=== PATIENT | female | born 1945 | race Caucasian/White ===

== ENCOUNTER 2016-03-12 15:51 | Emergency (ER) | payer OTHER ==
[~2016-03-12] VITALS: Ht 165.1 cm; Wt 78.5 kg
[~2016-03-12 15:51] MED LIST: ASPEC81 PO; LEVO200T20 PO; ZCRT/40 PO
[2016-03-12 16:02] VITALS: TEMP 37.2; Ht 165.1 cm; Wt 78.5 kg
--- NOTE | 2016-03-12 16:42 | EMERGENCY ROOM VISIT NOTE ---
History Report prepared by Joaquina: Morris Julien Under the Supervision of: Dr. Todd Morataya M.D. First contact with patient: 16:18 Chief Complaint: POISONING Stated Complaint: TOOK A SWALLOW OF PEROXIDE History of Present Illness The patient is a 70 year old female who presents to the Emergency Room with complaints of sudden ingestion of concentrated hydrogen peroxide beginning just prior to arrival. She associates burning in the mouth and throat, burning and pressure in the chest, vomiting, and a headache with today's symptoms. The patient notes she ran three miles and walked two miles at the gym today, and when she got home she went to drink diluted hydrogen peroxide. She states she read information on the internet of potential health benefits. The patient notes she ingested approximately 30 ccs of 35 Food Grade Hydrogen Peroxide that she believed was diluted. She states she attempted to spit out the majority of what she swallowed and proceeded to drink water. The patient notes the water caused her to vomit several times, but her vomit did not contain blood. She denies trying to hurt herself. Source of History: patient Onset: just prior to arrival Position: other (global) Quality: other (ingestion of concentrated hydrogen peroxide) Timing: other (sudden) Associated Symptoms: + chest pain (burning and pressure), + headache, + vomiting Note: Associated symptoms: burning in the mouth and throat Review of Systems See HPI for pertinent positives & negatives. A total of 10 systems reviewed and were otherwise negative. Past Medical & Surgical Surgical Problems: (1) S/P appendectomy (2) S/P hysterectomy Family History Cancer FH: heart disease FHx: gallbladder disease FHx: lung disease Hypertension Social History Smoking Status: Never Smoker Marital Status: Housing Status: lives with significant other Occupation Status: employed Current/Historical Medications Scheduled Aspirin (Aspirin Ec), 81 MG PO DAILY Levothyroxine Sodium (Levothyroxine Sodium), 200 MCG PO DAILY Simvastatin (Zocor), 40 MG PO DAILY Allergies Coded Allergies: POLLEN (Verified Allergy, Unknown, 11/05/13) Physical Exam Vital Signs Date Time Temp Pulse Resp B/P Pulse Ox O2 Delivery O2 Flow Rate FiO2 03/12/16 17:31 98 18 133/93 95 03/12/16 16:02 37.2 109 18 160/87 96 Room Air Physical Exam GENERAL: Patient is in no acute distress. HEENT: No erythema, ulcer, or burn to the mucosa of the mouth. No acute trauma, normocephalic atraumatic, mucous membranes moist, no nasal congestion, no scleral icterus. NECK: No stridor, no adenopathy, no meningismus, trachea is midline. LUNGS: Clear to auscultation bilaterally, no wheeze, no rhonchi, breath sounds equal. HEART: Without murmurs gallops or rubs, regular rate and rhythm. ABDOMEN: Soft, nontender, bowel sounds positive, no hernias, no peritonitis. EXTREMITIES: No cyanosis or edema, full range of motion of all the joints without pain or difficulty, no signs for acute trauma. NEUROLOGIC: Oriented x 3, no acute motor or sensory deficits, no focal weakness. SKIN: No rash, no jaundice, no diaphoresis. Medical Decision & Procedures ER Provider Diagnostic Interpretation: X-ray results as stated below per interpretation by me and the radiologist: CHEST ONE VIEW PORTABLE CLINICAL HISTORY: Possible esophageal rupture. COMPARISON STUDY: Chest radiograph November 04, 2005. FINDINGS: Lung volumes are normal. There is no pneumothorax or pleural effusion. Linear left basilar opacity is suggestive of atelectasis. Cardiac size is normal. Mediastinal contours are normal. No pneumomediastinum is identified by radiography. IMPRESSION: 1. No pneumomediastinum or pleural effusion identified by radiography. The esophagus is suboptimally assessed by radiography. 2. Linear left basilar opacity suggestive of atelectasis. Electronically signed by: Jeff De Souza M.D. 03/12/2016 5:00 PM ECG Indication: toxicologic Rate (beats per minute): 87 Rhythm: normal sinus (with some baseline artifact) Findings: no acute ischemic change, no ectopy, other (Poor R wave progression) ED Course 1617: The patient was evaluated in room B11B. A complete history and physical exam was performed. 1629: I spoke to the Poison Control Diesel Mechanic Helper in [place] about the patient 's case, and he suggested doing an endoscopy and observing the patient overnight. 1634: Reevaluated the patient at this time, and she is refusing an endoscopy and staying for observation. She notes she will think about the options further for a final decision. 1718: Reevaluated the patient, and she refuses anything else to be done. The patient states she feels better and wants to go home. She agrees to come back if she does not feel well as time goes on. Discussed results and discharge instructions: She verbalized understanding and agreement. The patient is ready for discharge. Medical Decision The differential diagnoses include but are not limited to: esophageal burn, stomach ulcer or burn, oral mucosa burn, esophageal rupture. The patient presents shortly after ingesting a small amount of concentrated hydrogen peroxide. She complains of some chest burning. On exam, the oral mucosa was unremarkable. Chest film showed no evidence for esophageal rupture, no mediastinal air. EKG showed a normal sinus rhythm, no ischemia. I talked with the technical solutions consultant at the poison center in [place]. He recommended an endoscopy and an admission overnight for observation. 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 She has agreed to come back if worsening. She understands the possibilities of a bad outcome if she were to go home. I discussed my concerns for esophageal burn or even esophageal rupture, I talked about the possibilities of a gastritis or gastric ulcer. As the patient does not want to go forward with the proposed treatment plan, she is being discharged, again, she has agreed to return if worsening. Consults Time Called: 1622 Consulting Physician: Poison Control Dies[employer] Mechanic Helper in [place] Returned Call: 1628 I spoke to the Poison Control Diesel Mechanic Helper in [place] about the patient's case, and he suggested doing an endoscopy and observing the patient overnight. Impression Primary Impression: Accidental drug ingestion Scribe Attestation The scribe's documentation has been prepared under my direction and personally reviewed by me in its entirety. I confirm that the note above accurately reflects all work, treatment, procedures, and medical decision making performed by me. Departure Information Dispostion Home / Self-Care Referrals Lex Pepper MD (PCP) Forms HOME CARE DOCUMENTATION FORM, IMPORTANT VISIT INFORMATION Patient Instructions [facility] Additional Instructions bland diet---lots of liqiuds return for worsening symptoms or if you change you mind about staying in the hospital or about your endoscopy follow with your [facility] md this week
--- NOTE | 2016-03-12 17:02 | DIAGNOSTIC IMAGING REPORT ---
CHEST ONE VIEW PORTABLE CLINICAL HISTORY: Possible esophageal rupture. COMPARISON STUDY: Chest radiograph November 04, 2005. FINDINGS: Lung volumes are normal. There is no pneumothorax or pleural effusion. Linear left basilar opacity is suggestive of atelectasis. Cardiac size is normal. Mediastinal contours are normal. No pneumomediastinum is identified by radiography. IMPRESSION: 1. No pneumomediastinum or pleural effusion identified by radiography. The esophagus is suboptimally assessed by radiography. 2. Linear left basilar opacity suggestive of atelectasis. Electronically signed by: Jeff De Souza M.D. 03/12/2016 5:00 PM Dictated Date/Time: 03/12/2016 4:58 PM
[2016-03-12] MEDS ORDERED: ASPI81TA28 PO (17:26)
[2016-03-12] MEDS ORDERED: LEVO200T6 PO (17:26)
[2016-03-12 17:31] VITALS: BP 133/93; PULSE 98; O2SAT 95
[2016-03-14] MEDS ORDERED: ULT50X PO (17:26)
[2016-03-14] MEDS ORDERED: PRT40 PO (17:26)
[2016-03-14] MEDS ORDERED: ONDA4TAB10 SL (17:26)
== END 2016-03-12 17:33 | disposition left against medical advice (07) ==
LOC: C.EDB 15:53
DX: T49.0X1A Poisoning by local antifungal, anti-infective and anti-inflammatory drugs, accidental (unintentional), initial encounter (principal); X58.XXXA Exposure to other specified factors, initial encounter; Y92.019 Unspecified place in single-family (private) house as the place of occurrence of the external cause; Z79.82 Long term (current) use of aspirin; Z79.899 Other long term (current) drug therapy

== ENCOUNTER 2016-03-12 21:51 | Inpatient (IN) | payer OTHER ==
[~2016-03-12] VITALS: Ht 162.6 cm; Wt 77.6 kg
[~2016-03-12 21:51] MED LIST changes: +ASPI81TA28 PO; +LEVO200T6 PO
[2016-03-12] MEDS ORDERED: ONDANSETRON INJ 2 MG/ML 2 ML VIAL IV STA (22:22)
[2016-03-12 22:33] LABS: BASO % 0.2 %; BASO ABS # 0.03 K/uL (0-0.2); COMPLETE YES; EOS % 0.2 %; HEMATOCRIT 43.9 % (37-47); IG% 0.3 %; LYMPH % 9.2 %; LYMPH ABS # 1.23 K/uL (1.2-3.4); MEAN CELL VOLUME 85.7 fL (80-100); MEAN CORPUSCULAR HEMOGLOBIN 29.9 pg (25-34); MEAN CORPUSCULAR HGB CONC 34.9 g/dl (32-36); MEAN PLATELET VOLUME 12.2 fL (7.4-10.4); MONO % 3.3 %; NEUT % 86.8 %; PLATELET COUNT 239 K/uL (130-400); RED BLOOD COUNT 5.12 M/uL (4.2-5.4)
[2016-03-12] MEDS ORDERED: MoRPHine SULFATE 4 MG/ML 1 ML CARP\\VIAL IV STA (22:42)
[2016-03-12] MEDS ORDERED: PANTOprazole INJ 80 MG in DEXTROSE 5% 100ML 100 ML IV STA (22:42)
[2016-03-12 22:51] LABS: BUN/CREATININE RATIO 27.9 (10-20); CALCIUM 9.5 mg/dl (8.5-10.1); CREATININE 0.81 mg/dl (0.60-1.20); POTASSIUM 4.1 mmol/L (3.5-5.1)
[2016-03-12 22:54] LABS: ALB/GLOB RATIO 1.3 (0.9-2)
--- NOTE | 2016-03-12 23:04 | DIAGNOSTIC IMAGING REPORT ---
TWO VIEW CHEST CLINICAL HISTORY: Hemoptysis. Hydrogen peroxide ingestion. FINDINGS: PA and lateral chest radiographs are compared to study dated 03/12/2016. The cardiomediastinal silhouette is unremarkable. There is mild atherosclerotic calcification of the thoracic aorta. Platelike atelectasis is in the left lung base. The lungs and pleural spaces are otherwise clear noting chronic interstitial thickening. There is no pneumothorax or evidence of pneumomediastinum. The skeletal structures are osteopenic. The bony thorax appears intact. IMPRESSION: No acute cardiopulmonary abnormality. Electronically signed by: Todd Hernandez M.D. 03/12/2016 11:01 PM Dictated Date/Time: 03/12/2016 11:00 PM
[2016-03-12] MEDS ORDERED: HYDROmorphone INJ 1 MG/ML SYR IV STA (23:13)
[2016-03-12] MEDS ORDERED: HYDROmorphone INJ 0.5 MG/0.5 ML SYR ONE (23:15)
[2016-03-13] VITALS (14 sets, daily range): BP systolic 101–130; BP diastolic 62–77; PULSE 65–80; TEMP 36.5–36.9; O2SAT 90–97; Ht 162.6 cm; Wt 77.6 kg
--- NOTE | 2016-03-13 00:37 | History and Physical ---
History & Physical Date & Time of Service: Mar 13, 2016 at 00:33 Chief Complaint: Nausea:Was Seen Earlier Today Primary Care Physician: Lex Pepper MD History of Present Illness Source: patient, spouse Mrs Audelia Galvez is a 70 year old female who presents to the ED today after accidental hydrogen peroxide ingestion at 3pm on 03/12/16 (yesterday). She was at the gym and on the treadmill, then when she got home decided to try drinking hydrogen peroxide for health benefits. She did not know that the hydrogen peroxide should be diluted and ended up having it as its concentrated form. She came to the ED earlier in the day, and Poison control was contacted and recommended an EGD and observation. She felt better at the time and so decided to go home, but later in the evening returned after she developed worsening vomiting and noticed her vomit was blood tinged. Currently, she reports severe pain in the epigastrium. She had two doses of morphine that did not touch the pain. She reports that this was not an intentional overdose. She previously was a nurse. Past Medical/Surgical History PMHx: Hypothyroidism Surgical Problems: (1) S/P appendectomy Status: Resolved (2) S/P hysterectomy Status: Resolved Family History Cancer FH: heart disease FHx: gallbladder disease FHx: lung disease Hypertension Social History Smoking Status: Never Smoker Marital Status: Occupational Status: employed Immunizations History of Influenza Vaccine: N/A History of Tetanus Vaccine?: Unknown History of Pneumococcal: Unknown History of Hepatitis B Vaccine: Yes Hepatitis Immunization Date: Mar 19, 2004 Multi-Drug Resistant Organisms History of MDRO: No Allergies Coded Allergies: POLLEN (Verified Allergy, Unknown, 11/05/13) Home Medications Scheduled Aspirin (Aspirin Ec), 81 MG PO DAILY Levothyroxine Sodium (Levothyroxine Sodium), 200 MCG PO DAILY Simvastatin (Zocor), 40 MG PO DAILY Review of Systems See HPI for pertinent positives & negatives. A total of 10 systems reviewed and were otherwise negative. Physical Exam Vital Signs Date Time Temp Pulse Resp B/P Pulse Ox O2 Delivery O2 Flow Rate FiO2 03/13/16 00:01 90 20 145/76 94 Room Air 03/12/16 22:15 80 03/12/16 21:53 36.5 89 20 169/79 96 Room Air General Appearance: WD/WN, + mild distress Head: normocephalic, atraumatic Eyes: normal inspection ENT: hearing grossly normal Neck: supple, no JVD Respiratory/Chest: lungs clear, normal breath sounds, no respiratory distress Cardiovascular: regular rate, rhythm, no murmur, normal peripheral pulses Abdomen/GI: soft, + tenderness (epigastrium) Back: no CVA tenderness Extremities/Musculoskelatal: no calf tenderness, no pedal edema Neurologic/Psych: alert, normal mood/affect, oriented x 3 Skin: no rash Diagnostics Laboratory Results Results Past 24 Hours Test 03/12/16 22:18 Range/Units White Blood Count 13.40 4.8-10.8 K/uL Red Blood Count 5.12 4.2-5.4 M/uL Hemoglobin 15.3 12.0-16.0 g/dL Hematocrit 43.9 37-47 % Mean Corpuscular Volume 85.7 80-100 fL Mean Corpuscular Hemoglobin 29.9 25-34 pg Mean Corpuscular Hemoglobin Concent 34.9 32-36 g/dl Platelet Count 239 130-400 K/uL Mean Platelet Volume 12.2 7.4-10.4 fL Neutrophils (%) (Auto) 86.8 % Lymphocytes (%) (Auto) 9.2 % Monocytes (%) (Auto) 3.3 % Eosinophils (%) (Auto) 0.2 % Basophils (%) (Auto) 0.2 % Neutrophils # (Auto) 11.63 1.4-6.5 K/uL Lymphocytes # (Auto) 1.23 1.2-3.4 K/uL Monocytes # (Auto) 0.44 0.11-0.59 K/uL Eosinophils # (Auto) 0.03 0-0.5 K/uL Basophils # (Auto) 0.03 0-0.2 K/uL RDW Standard Deviation 38.9 36.4-46.3 fL RDW Coefficient of Variation 12.4 11.5-14.5 % Immature Granulocyte % (Auto) 0.3 % Immature Granulocyte # (Auto) 0.04 0.00-0.02 K/uL Sodium Level 141 136-145 mmol/L Potassium Level 4.1 3.5-5.1 mmol/L Chloride Level 105 98-107 mmol/L Carbon Dioxide Level 20 21-32 mmol/L Anion Gap 16.0 3-11 mmol/L Blood Urea Nitrogen 23 7-18 mg/dl Creatinine 0.81 0.60-1.20 mg/dl Est Creatinine Clear Calc Drug Dose 66.8 ml/min Estimated GFR () 85.3 Estimated GFR (Non- 73.6 BUN/Creatinine Ratio 27.9 10-20 Random Glucose 189 70-99 mg/dl Calcium Level 9.5 8.5-10.1 mg/dl Total Bilirubin 0.4 0.2-1 mg/dl Aspartate Amino Transf (AST/SGOT) 19 15-37 U/L Alanine Aminotransferase (ALT/SGPT) 31 12-78 U/L Alkaline Phosphatase 87 45-117 U/L Total Protein 7.7 6.4-8.2 gm/dl Albumin 4.3 3.4-5.0 gm/dl Globulin 3.4 2.5-4.0 gm/dl Albumin/Globulin Ratio 1.3 0.9-2 Diagnostic Radiology CXR: IMPRESSION: No acute cardiopulmonary abnormality. CT CHEST without contrast: No extraluminal contrast, pneumomediastinum, or pneumothorax. Oral contrast is seen in the esophagus; no superimposed mass lesion or stricture. Mild dependent/atelectatic opacities present within the lung bases. Incidental lower cervical spondylosis. CT ABDOMEN & PELVIS: Small hiatal hernia with accentuated proximal gastric wall thickness. No extraluminal contrast, free air, or free fluid. Nonobstructive bowel gas pattern. Colonic diverticulosis. Uncomplicated umbilical hernia. Spondylosis L4-L5. Radiologist: Russell Maddox MD Impression Assessment and Plan 70 yo F with accidental hydrogen peroxide ingestion, causing vomiting and hematemesis (likely has a small Raquel-Petty tear) Plan Hydrogen peroxide ingestion - Observe on telemetry - NPO with IV fluids - Consult GI for potential EGD - Protonix drip - Daily Abdominal/Chest XRay to evaluate for esophageal perforation Raquel-Petty Tear - Dilaudid for pain - Daily CBC Pt states she is a DNR Level of Care Telemetry Resuscitation Status DO NOT RESUSCITATE VTE Prophylaxis VTE Risk Assessment Done? Y/N: Yes Risk Level: High Given or contraindicated: SCD's Additional Copies To Lex Pepper MD Resident Tracking Resident Involvement: Resident Care Provided Care Provided: Adult [facility] Medicine Assessment and Plan Attending Addendum: I have seen and examined this patient, have directed their medical care, have supervised the chief medical technologist, and agree with the H&P as noted above. History of Present Illness: The patient is a 70-year-old female who presented to the emergency department earlier in the day after accidental ingestion of hydrogen peroxide at 3 PM, was assessed, and at that time felt well enough to go home and follow-up with her physician as an outpatient. However, later on in the evening, the patient developed esophageal pain and vomited up blood, and thus presented back to the emergency department for assessment and was referred for evaluation for admission. She did undergo imaging studies including x-rays and CT of the chest abdomen and pelvis which were negative for free air indicating that there was no perforation. Her primary symptoms at this point are that of a sore throat and nausea. Review of Systems: The patient denies palpitations, shortness of breath, cough, lower extremity swelling, vision change, hearing change, fevers, chills, sweats, weight change , fatigue, pelvic pain, blood in urine or stool, dysuria, urinary frequency or urgency, lightheadedness, dizziness, headache, memory loss, rash, abnormal bruising or bleeding, imbalance, focal or generalized weakness, numbness or tingling in arms or legs, arthralgias or myalgias, back or neck pain, night sweats. The review of systems is otherwise negative other than for that already noted above, and at least 10 systems have been reviewed. Physical Examination: The patient is awake, well-developed and adequately nourished, alert and oriented 3, normocephalic and atraumatic, lying in bed and in no acute distress. HEENT--PERRL, EOMI, mucous membranes and oropharynx dry. Neck--supple, no JVD or bruits, thyroid normal, trachea midline, no adenopathy. Heart--normal S1 and S2, no extra beats, no murmurs, rubs or gallops. Lungs--clear bilaterally with good air movement, no respiratory distress, no accessory muscle use. Abdomen--normal bowel sounds and soft, nontender and nondistended, no hernias or masses, no organomegaly. Extremities--no cyanosis, clubbing or edema. There are good distal pulses b/l. Dermatologic--normal skin turgor, normal color, warm and dry, no abnormal lymph nodes, no rash. Neurologic--cranial nerves II through XII grossly intact, motor and sensory examination normal. Rheumatologic--normal range of motion, nontender, muscles and joints. Psychiatric--normal affect. Imaging Studies: CT of the chest/abdomen/pelvis--small hiatal hernia, no signs of perforation. Assessment and Plan: Accidental ingestion of hydrogen peroxide--the patient will be admitted to the telemetry unit for frequent vital signs and close monitoring. She'll be kept nothing by mouth. She'll be placed on Protonix bolus and then drip. Start normal saline with potassium chloride 20 mEq at 125 ML's per hour. Dilaudid 0.5 -1 mg IV every 2 hours when necessary pain. Gastroenterology has been notified from the emergency department personnel, and felt that it is best to wait until the morning to consider an EGD at that time. We will perform serial chest x-ray and KUB x-ray to monitor for perforation. CBCD, BMP and magnesium in the a.m. Hypothyroidism--change levothyroxine sodium at 200 g by mouth daily to 100 g IV daily. Hypercholesterolemia--hold simvastatin 40 mg by mouth daily and aspirin 81 mg by mouth daily.
[2016-03-13] MEDS: HYDROmorphone INJ 0.5 MG/0.5 ML SYR IV PRN ×3 (00:45→18:37)
[2016-03-13] MEDS: PANTOprazole INJ 40 MG in DEXTROSE 5% 100ML IV SCH ×5 (00:55→21:41)
[2016-03-13] MEDS: SODIUM CHLOR 0.45% + 20MEQ KCL 1,000 ML IV SCH ×4 (02:12→21:30)
--- NOTE | 2016-03-13 07:11 | Gastroenterology Progress Note ---
Progress Note Date of Service: Mar 13, 2016 Subjective Pt evaluation today including: conversation w/ patient, physical exam, chart review, lab review, review of studies, review of inpatient medication list Medications Current Inpatient Medications Medications (Trade) Dose Ordered Sig/Irineo Route Start Time Stop Time Status Last Admin Dose Admin Ondansetron HCl (Zofran Inj) 4 mg Q6H PRN IV 03/13/16 00:30 04/12/16 00:29 Hydromorphone HCl 0.5 mg 0.5 mg Q4H PRN IV 03/13/16 00:30 03/27/16 00:29 03/13/16 00:45 0.5 MG Potassium Chloride/Sodium Chloride 1,000 ml @ 150 mls/hr Q6H40M IV 03/13/16 01:30 04/12/16 01:29 03/13/16 02:12 150 MLS/HR Pantoprazole Sodium 40 mg/ Dextrose 100 ml @ 20 mls/hr Q5H IV 03/13/16 00:45 04/12/16 00:44 03/13/16 06:38 20 MLS/HR Levothyroxine Sodium/Syringe (Synthroid Inj/ Syringe) 5 ml @ 2 mls/min DAILY@09 IV 03/13/16 09:00 04/12/16 08:59 Objective Vital Signs Date Time Temp Pulse Resp B/P Pulse Ox O2 Delivery O2 Flow Rate FiO2 03/13/16 04:00 36.6 80 18 130/77 90 Room Air 03/13/16 04:00 90 Room Air 03/13/16 02:33 90 Room Air 03/13/16 02:00 90 Room Air 03/13/16 01:43 36.6 80 18 130/77 90 Room Air 03/13/16 00:47 90 20 142/82 97 Room Air 03/13/16 00:01 90 20 145/76 94 Room Air 03/12/16 22:15 80 03/12/16 21:53 36.5 89 20 169/79 96 Room Air Laboratory Results Last 24 Hours Test 03/12/16 22:18 White Blood Count 13.40 K/uL Red Blood Count 5.12 M/uL Hemoglobin 15.3 g/dL Hematocrit 43.9 % Mean Corpuscular Volume 85.7 fL Mean Corpuscular Hemoglobin 29.9 pg Mean Corpuscular Hemoglobin Concent 34.9 g/dl Platelet Count 239 K/uL Mean Platelet Volume 12.2 fL Neutrophils (%) (Auto) 86.8 % Lymphocytes (%) (Auto) 9.2 % Monocytes (%) (Auto) 3.3 % Eosinophils (%) (Auto) 0.2 % Basophils (%) (Auto) 0.2 % Neutrophils # (Auto) 11.63 K/uL Lymphocytes # (Auto) 1.23 K/uL Monocytes # (Auto) 0.44 K/uL Eosinophils # (Auto) 0.03 K/uL Basophils # (Auto) 0.03 K/uL RDW Standard Deviation 38.9 fL RDW Coefficient of Variation 12.4 % Immature Granulocyte % (Auto) 0.3 % Immature Granulocyte # (Auto) 0.04 K/uL Sodium Level 141 mmol/L Potassium Level 4.1 mmol/L Chloride Level 105 mmol/L Carbon Dioxide Level 20 mmol/L Anion Gap 16.0 mmol/L Blood Urea Nitrogen 23 mg/dl Creatinine 0.81 mg/dl Est Creatinine Clear Calc Drug Dose 66.8 ml/min Estimated GFR () 85.3 Estimated GFR (Non- 73.6 BUN/Creatinine Ratio 27.9 Random Glucose 189 mg/dl Calcium Level 9.5 mg/dl Total Bilirubin 0.4 mg/dl Aspartate Amino Transf (AST/SGOT) 19 U/L Alanine Aminotransferase (ALT/SGPT) 31 U/L Alkaline Phosphatase 87 U/L Total Protein 7.7 gm/dl Albumin 4.3 gm/dl Globulin 3.4 gm/dl Albumin/Globulin Ratio 1.3 Assessment and Plan GI consult to be dictated Alkali ingestion epigastric pain hematemesis Improved. Continue IV protonix, Trial clear liquid diet. Offered by patient declined EGD to assess for severity of damage to stage disease for prognosis.
--- NOTE | 2016-03-13 07:41 | DIAGNOSTIC IMAGING REPORT ---
CT ABD/PELVIS ORAL CONT ONLY CLINICAL HISTORY: Ingested hydrogen peroxide. Evaluate for perforation. TECHNIQUE: Axial images of the abdomen and pelvis were obtained without IV contrast. Oral contrast was administered immediately prior to scan. COMPARISON STUDY: None. FINDINGS: The chest will be reported separately. No pneumoperitoneum or portal venous gas is present. No contrast extravasation is identified although contrast has only reached the proximal stomach. There is minimal perigastric infiltration along the gastrohepatic ligament. Mild gastric wall thickening is nonspecific and accentuated by underdistention. Unenhanced images of liver, spleen, adrenal glands, kidneys and pancreas are normal. There is no evidence for a bowel obstruction. No bowel wall thickening is identified although evaluation is compromised due to the lack of IV contrast. There is no lymphadenopathy. There are no suspicious skeletal abnormalities. There is a fat-containing umbilical hernia. IMPRESSION: No pneumoperitoneum or portal venous gas. Mild perigastric infiltration along the gastrohepatic ligament which may reflect inflammation related to gastric injury. Mild wall thickening of the distal body of the stomach could reflect gastritis related to toxic congestion or be due to underdistention. Discussed with Dr. Sanabria at time of dictation. Electronically signed by: Jeff De Souza M.D. 03/13/2016 7:40 AM Dictated Date/Time: 03/13/2016 6:20 AM
--- NOTE | 2016-03-13 07:44 | DIAGNOSTIC IMAGING REPORT ---
CHEST CT WITHOUT CONTRAST CT DOSE: 789.92 mGy.cm HISTORY: Drank hydrogen peroxide. Nausea. Assess for esophageal perforation. TECHNIQUE: Multiaxial CT images of the chest were performed without contrast. COMPARISON: None. FINDINGS: There is oral contrast within the esophagus. No extraluminal contrast to suggest a perforation. There is no evidence for pneumomediastinum. Normal caliber thoracic aorta. No pleural or pericardial effusions. The heart is normal in size. No mediastinal or hilar lymphadenopathy. No fractures within the visualized osseous structures. The central airways are patent. Motion artifact within the lung bases results in suboptimal evaluation. No focal lung consolidations to suggest pneumonia. IMPRESSION: No evidence for esophageal perforation. Please refer to the same day abdomen and pelvis CT for further evaluation of the abdominal structures. Electronically signed by: Vega Vo M.D. 03/13/2016 7:43 AM Dictated Date/Time: 03/13/2016 7:37 AM
[2016-03-13 07:51] LABS: BASO % 0.2 %; BASO ABS # 0.02 K/uL (0-0.2); EOS % 1.4 %; IG% 0.2 %; LYMPH % 16.3 %; LYMPH ABS # 1.69 K/uL (1.2-3.4); MEAN CELL VOLUME 86.4 fL (80-100); MEAN CORPUSCULAR HEMOGLOBIN 29.6 pg (25-34); MEAN PLATELET VOLUME 11.7 fL (7.4-10.4); MONO % 8.2 %; NEUT % 73.7 %; PLATELET COUNT 201 K/uL (130-400); RED BLOOD COUNT 4.86 M/uL (4.2-5.4); WHITE BLOOD COUNT 10.34 K/uL (4.8-10.8)
[2016-03-13 08:00] LABS: COMPLETE YES; MEAN CORPUSCULAR HGB CONC 34.3 g/dl (32-36)
[2016-03-13 08:17] LABS: ALB/GLOB RATIO 1.2 (0.9-2); BUN/CREATININE RATIO 26.4 (10-20); CALCIUM 9.2 mg/dl (8.5-10.1); CREATININE 0.67 mg/dl (0.60-1.20); POTASSIUM 4.6 mmol/L (3.5-5.1)
--- NOTE | 2016-03-13 09:23 | DIAGNOSTIC IMAGING REPORT ---
PA CHEST WITH ABDOMINAL SERIES CLINICAL HISTORY: Nausea. Vomiting. Generalized abdominal pain. Hydrogen peroxide ingestion. FINDINGS: A PA chest radiograph is compared to study dated 03/12/2016. The cardiomediastinal silhouette is unremarkable. The lungs and pleural spaces are clear. No pneumothorax is seen. The skeletal structures are osteopenic. The bony thorax is grossly intact. Supine and erect abdominal radiographs are correlated with abdominal CT dated 03/12/2016. There is a nonobstructed abdominal bowel gas pattern. No intraperitoneal free air is seen. Enteric contrast is present in the right colon. The bladder appears distended. Numerous calcified phleboliths are seen in the pelvis. The lumbosacral spine and bony pelvis appear intact. IMPRESSION: 1. No active disease in the chest. 2. Nonobstructed abdominal bowel gas pattern. Electronically signed by: Todd Hernandez M.D. 03/13/2016 9:21 AM Dictated Date/Time: 03/13/2016 9:18 AM
[2016-03-13] MEDS: ONDANSETRON INJ 2 MG/ML 2 ML VIAL IV PRN ×2 (09:26→18:37)
[2016-03-13] MEDS: LEVOTHYROXINE SODIUM INJ 100 MCG in SYRINGE 0 ML IV SCH (09:26)
--- NOTE | 2016-03-13 11:40 | EMERGENCY ROOM VISIT NOTE ---
History Report prepared by Joaquina: Mary Ellen Whatley Under the Supervision of: Dr. Niko Ferro M.D. First contact with patient: 22:24 Chief Complaint: NAUSEA Stated Complaint: NAUSEA:WAS SEEN EARLIER TODAY Nursing Triage Summary: patient has c/o severe abdominal pain radiating from stomach into her back along with feelings of abdominal distention. patient was seen here earlier after ingesting hydrogen peroxide and signed out AMA but was told to return if any symptoms worsened. patient also c/o nausea and vomiting blood. History of Present Illness The patient is a 70 year old female who presents to the Emergency Room with complaints of worsened lower chest and diffuse abdominal pain over the past 4.5 hours. Her current discomfort is a 7/10. The patient was initially seen around 4PM today in the ED after swallowing a large mouthful of food grade hydrogen peroxide (35% concentration). Per , he keeps it in the house for a 30 day cleansing treatment that he has instructions for to provide health benefits. The regimen says to use only a few drops in an 8 ounce glass of water. The patient thought it was already diluted when she swallowed it and did not have any intention of hurting herself. Afterwards, she had burning sensation in her mouth, throat, and chest and vomiting. While in the ED, Poison Control [facility] recommended that the patient have an endoscopy and be observed overnight in the hospital. The patient refused the recommendations because she was feeling better and was discharged home. 4.5 hours ago the patient started having much worse pain, and 4 hours ago, began to feel nauseated and vomit. She has had multiple episodes of hematemesis since then. Her vomit contains both dark and bright red blood. Denies loss of vision, unilateral numbness or weakness, or other complaints. 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 A total of 10 systems reviewed and were otherwise negative. Past Medical & Surgical Medical Problems: (1) Accidental ingestion of substance Surgical Problems: (1) S/P appendectomy (2) S/P hysterectomy Family History Cancer FH: heart disease FHx: gallbladder disease FHx: lung disease Hypertension Social History Smoking Status: Never Smoker Marital Status: Housing Status: lives with significant other Occupation Status: employed Current/Historical Medications Scheduled Aspirin (Aspirin Ec), 81 MG PO DAILY Levothyroxine Sodium (Levothyroxine Sodium), 200 MCG PO DAILY Simvastatin (Zocor), 40 MG PO DAILY Allergies Coded Allergies: POLLEN (Verified Allergy, Unknown, 11/05/13) Physical Exam Vital Signs Date Time Temp Pulse Resp B/P Pulse Ox O2 Delivery O2 Flow Rate FiO2 03/13/16 00:01 90 20 145/76 94 Room Air 03/12/16 22:15 80 03/12/16 21:53 36.5 89 20 169/79 96 Room Air Physical Exam Constitutional: Vital signs reviewed. Eyes: Pupils are equal round reactive to light. Conjunctiva are noninjected. ENT: Pharynx is clear without erythema or exudate. Mucous membranes are moist. Neck supple without meningeal signs. Respiratory: Clear to auscultation bilaterally. Breath sounds are equal bilaterally. Cardiovascular: Regular rate and rhythm. No rubs or gallops. GI: Soft, nondistended, upper abdominal tenderness without guarding. Dark red blood in vomitus at bedside. Bowel sounds are present. Musculoskeletal: No peripheral edema. No lower extremity tenderness. Integumentary: No cyanosis. Neurological: The patient is awake and alert. No focal deficits. Psychiatric: Normal affect. Medical Decision & Procedures ER Provider Diagnostic Interpretation: X-ray results as stated below per interpretation by me and the radiologist. Radiology results as stated below per my review and the radiologist's interpretation: TWO VIEW CHEST CLINICAL HISTORY: Hemoptysis. Hydrogen peroxide ingestion. FINDINGS: PA and lateral chest radiographs are compared to study dated 03/12/2016. The cardiomediastinal silhouette is unremarkable. There is mild atherosclerotic calcification of the thoracic aorta. Platelike atelectasis is in the left lung base. The lungs and pleural spaces are otherwise clear noting chronic interstitial thickening. There is no pneumothorax or evidence of pneumomediastinum. The skeletal structures are osteopenic. The bony thorax appears intact. IMPRESSION: No acute cardiopulmonary abnormality. Electronically signed by: Todd Hernandez M.D. 03/12/2016 11:01 PM Dictated Date/Time: 03/12/2016 11:[address] CHEST without contrast: No extraluminal contrast, pneumomediastinum, or pneumothorax. Oral contrast is seen in the esophagus; no superimposed mass lesion or stricture. Mild dependent/atelectatic opacities present within the lung bases. Incidental lower cervical spondylosis. CT ABDOMEN & PELVIS: Small hiatal hernia with accentuated proximal gastric wall thickness. No extraluminal contrast, free air, or free fluid. Nonobstructive bowel gas pattern. Colonic diverticulosis. Uncomplicated umbilical hernia. Spondylosis L4-L5. Radiologist: Russell Maddox MD Laboratory Results Laboratory results as reviewed by me. Medications Administered Medications (Trade) Dose Ordered Sig/Irineo Route Start Time Stop Time Status Last Admin Dose Admin Ondansetron HCl (Zofran Inj) 4 mg NOW STAT IV 03/12/16 22:22 03/12/16 22:24 DC 03/12/16 22:33 4 MG Morphine Sulfate 4 mg 4 mg NOW STAT IV 03/12/16 22:42 03/12/16 22:43 DC 03/12/16 22:49 4 MG Pantoprazole Sodium/Dextrose (Protonix Inj/D5 100ml) 120 ml @ 400 mls/hr NOW STAT IV 03/12/16 22:42 03/12/16 22:59 DC 03/12/16 23:02 400 MLS/HR Hydromorphone HCl (Dilaudid Inj) 0.5 mg STK-MED ONCE .ROUTE 03/12/16 23:15 03/12/16 23:17 DC 03/12/16 23:21 0.5 MG ECG Indication: toxicologic Rate (beats per minute): 79 Rhythm: normal sinus Findings: no acute ischemic change, no ectopy ED Course 2222: The patient was evaluated in room B2. A complete history and physical exam was performed. Ordered Zofran Inj 4 mg IV. 2242: Ordered Pantoprazole Sodium 80 mg/Dextrose 120 ml @ 400 mls/hr IV, Morphine Sulfate 4 mg IV. 2247: I discussed the case with Dr. Arvizu - [facility] Gastroenterology. He doesn't recommend acute EGD and recommended a CT of a chest and abdomen to rule out perforation. 2249: I updated the patient on my conversation with Dr. Arvizu. She agrees with the plan. 2313: Ordered Dilaudid Inj 0.5 mg IV. 2355: I reassessed the patient and discussed test results with her. She was feeling better. She agreed with the treatment plan. 0001: I discussed the case with Dr. Cesar - [facility] Hospitalist. The patient will be evaluated for further management. Medical Decision This is a 70-year-old female who presents status post accidental ingestion of 35 % hydrogen peroxide. I did perform a limited focused review of portions of the patient's old chart on the electronic medical record. She was just here at 4PM today after drinking concentrated hydrogen peroxide at 3PM. They recommended that she be admitted for an endoscopy but she declined and was discharged home. I did evaluate the patient as noted above. I did discuss the case with the physician who was seen her earlier today. He relayed these recommendations made to him by toxicology. The patient states that she is doing much worse than she was earlier. She has pain in her upper abdomen as well as her lower chest. She has no focal neurologic symptoms. She denies any significant shortness of breath and denies any chest pain other than the pain in her mid lower chest. IV access was established. The patient was placed on a continuous registered nurse cardiac telemetry. The patient was treated with IV Zofran and morphine. She was also given Protonix IV. I did personally review the patient' s 12-lead EKG and chest x-ray as described above. I did review the patient's blood work as noted in the electronic medical record. I did discuss the case with Dr. Arvizu of gastroenterology. He did not recommend an emergent EGD at this time. He did recommend that we obtain CT of the chest and abdomen to rule out perforation or surgical emergency. I did discuss this with the patient and her , and I did order a CT of the chest, abdomen and pelvis. I did review the images myself as well as the radiology report as described above. There is no evidence of perforation. There is some thickening of the proximal stomach. The patient was given additional pain medication with IV Dilaudid. She is much more comfortable at this time. I did discuss the test results with her. She did agree to hospitalization at this time. I did discuss the case with Dr. Humphreys as well as the embedded case manager. Consults Time Called: [phone] Consulting Physician: Dr. Arvizu - [facility] Gastroenterology Returned Call: [phone] I discussed the case with him. He doesn't recommend acute EGD and recommended a CT of a chest and abdomen to rule out perforation. Additional Consults: Time Called: [phone] Consulted Physician: Dr. Arsenio Buitrago [facility] Hospitalist Returned Call: [phone] Additional Comments: I discussed the case with him. The patient will be evaluated for further management. Impression Primary Impression: Ingestion of corrosive chemical Additional Impression: Hematemesis Scribe Attestation The scribe's documentation has been prepared under my direct and personally reviewed by me in its entirety. I confirm that the note above accurately reflects all work, treatment, procedures, and medical decision making performed by me. Departure Information Dispostion Being Evaluated By Hospitalist Referrals Lex Pepper MD (PCP) Patient Instructions My [facility] Problem Qualifiers Primary Impression: Ingestion of corrosive chemical Encounter type: subsequent encounter Injury intent: accidental or unintentional Qualified Codes: T54.91XD - Toxic effect of unspecified corrosive substance, accidental (unintentional), subsequent encounter Additional Impression: Hematemesis Nausea presence: with nausea Qualified Codes: K92.0 - Hematemesis; R11.0 - Nausea
--- NOTE | 2016-03-13 11:54 | Family Medicine Progress Note ---
Progress Note Date of Service Mar 13, 2016. Subjective Pt evaluation today including: conversation w/ patient, conversation w/ family , physical exam, chart review, lab review Patient lying comfortably, no acute distress. She says her throat is scratchy but not sore. No difficulty in swallowing, breathing or speaking. Currently not experiencing any abdominal pain, she says it is only tender on palpation. Dilaudid last taken 7 hours ago, feels pain symptoms have settled. No chest pain or dyspnea. Some nausea but no further emesis since admission. No issues with urination. No bowel movements yet. Constitutional: No chills, No fever ENT: No sore throat Respiratory: No cough, No hemoptysis, No shortness of breath, No wheezing Cardiovascular: No chest pain, No edema, No palpitations Abdomen: + nausea, No GI bleeding, No constipation, No diarrhea, No pain, No vomiting Female : No dysuria Medications Medications Administered Medications (Trade) Dose Ordered Sig/Irineo Route Start Time Stop Time Status Last Admin Dose Admin Ondansetron HCl (Zofran Inj) 4 mg NOW STAT IV 03/12/16 22:22 03/12/16 22:24 DC 03/12/16 22:33 4 MG Morphine Sulfate 4 mg 4 mg NOW STAT IV 03/12/16 22:42 03/12/16 22:43 DC 03/12/16 22:49 4 MG Pantoprazole Sodium/Dextrose (Protonix Inj/D5 100ml) 120 ml @ 400 mls/hr NOW STAT IV 03/12/16 22:42 03/12/16 22:59 DC 03/12/16 23:02 400 MLS/HR Hydromorphone HCl (Dilaudid Inj) 0.5 mg STK-MED ONCE .ROUTE 03/12/16 23:15 03/12/16 23:17 DC 03/12/16 23:21 0.5 MG Ondansetron HCl (Zofran Inj) 4 mg Q6H PRN IV 03/13/16 00:30 04/12/16 00:29 03/13/16 18:37 4 MG Hydromorphone HCl 0.5 mg 0.5 mg Q4H PRN IV 03/13/16 00:30 03/27/16 00:29 03/13/16 18:37 0.5 MG Potassium Chloride/Sodium Chloride 1,000 ml @ 150 mls/hr Q6H40M IV 03/13/16 01:30 04/12/16 01:29 03/13/16 14:02 150 MLS/HR Pantoprazole Sodium 40 mg/ Dextrose 100 ml @ 20 mls/hr Q5H IV 03/13/16 00:45 04/12/16 00:44 03/13/16 21:41 20 MLS/HR Levothyroxine Sodium/Syringe (Synthroid Inj/ Syringe) 5 ml @ 2 mls/min DAILY@09 IV 03/13/16 09:00 04/12/16 08:59 03/13/16 09:26 2 MLS/MIN Objective Vital Signs Date Time Temp Pulse Resp B/P Pulse Ox O2 Delivery O2 Flow Rate FiO2 03/13/16 20:25 36.6 65 18 106/68 95 Room Air 03/13/16 16:00 96 Room Air 03/13/16 15:09 36.7 68 18 112/66 94 Room Air 03/13/16 12:00 97 Room Air 03/13/16 11:33 36.5 70 18 121/74 96 Room Air 03/13/16 11:32 36.8 69 18 115/68 96 Room Air 03/13/16 08:00 96 Room Air 03/13/16 07:13 36.8 69 18 115/68 96 Room Air 03/13/16 04:00 36.6 80 18 130/77 90 Room Air 03/13/16 04:00 90 Room Air 03/13/16 02:33 90 Room Air 03/13/16 02:00 90 Room Air 03/13/16 01:43 36.6 80 18 130/77 90 Room Air 03/13/16 00:47 90 20 142/82 97 Room Air 03/13/16 00:01 90 20 145/76 94 Room Air Physical Exam General Appearance: WD/WN, no apparent distress ENT: pharynx normal Neck: supple, no adenopathy, trachea midline Respiratory/Chest: chest non-tender, lungs clear, normal breath sounds, no respiratory distress, no accessory muscle use Cardiovascular: regular rate, rhythm, no edema, no murmur Abdomen: normal bowel sounds, soft, + tenderness (in epigatric region), + pertinent finding (no guarding or rigidity) Extremities: no pedal edema, no calf tenderness Neurologic/Psychiatric: alert, normal mood/affect, oriented x 3 Skin: normal color, warm/dry, no rash Laboratory Results Results Past 24 Hours Test 03/13/16 07:43 Range/Units White Blood Count 10.34 4.8-10.8 K/uL Red Blood Count 4.86 4.2-5.4 M/uL Hemoglobin 14.4 12.0-16.0 g/dL Hematocrit 42.0 37-47 % Mean Corpuscular Volume 86.4 80-100 fL Mean Corpuscular Hemoglobin 29.6 25-34 pg Mean Corpuscular Hemoglobin Concent 34.3 32-36 g/dl Platelet Count 201 130-400 K/uL Mean Platelet Volume 11.7 7.4-10.4 fL Neutrophils (%) (Auto) 73.7 % Lymphocytes (%) (Auto) 16.3 % Monocytes (%) (Auto) 8.2 % Eosinophils (%) (Auto) 1.4 % Basophils (%) (Auto) 0.2 % Neutrophils # (Auto) 7.62 1.4-6.5 K/uL Lymphocytes # (Auto) 1.69 1.2-3.4 K/uL Monocytes # (Auto) 0.85 0.11-0.59 K/uL Eosinophils # (Auto) 0.14 0-0.5 K/uL Basophils # (Auto) 0.02 0-0.2 K/uL RDW Standard Deviation 40.0 36.4-46.3 fL RDW Coefficient of Variation 12.6 11.5-14.5 % Immature Granulocyte % (Auto) 0.2 % Immature Granulocyte # (Auto) 0.02 0.00-0.02 K/uL Sodium Level 140 136-145 mmol/L Potassium Level 4.6 3.5-5.1 mmol/L Chloride Level 106 98-107 mmol/L Carbon Dioxide Level 24 21-32 mmol/L Anion Gap 10.0 3-11 mmol/L Blood Urea Nitrogen 18 7-18 mg/dl Creatinine 0.67 0.60-1.20 mg/dl Est Creatinine Clear Calc Drug Dose 79.0 ml/min Estimated GFR () 103.2 Estimated GFR (Non- 89.1 BUN/Creatinine Ratio 26.4 10-20 Random Glucose 110 70-99 mg/dl Calcium Level 9.2 8.5-10.1 mg/dl Total Bilirubin 0.4 0.2-1 mg/dl Aspartate Amino Transf (AST/SGOT) 16 15-37 U/L Alanine Aminotransferase (ALT/SGPT) 25 12-78 U/L Alkaline Phosphatase 71 45-117 U/L Total Protein 6.8 6.4-8.2 gm/dl Albumin 3.7 3.4-5.0 gm/dl Globulin 3.1 2.5-4.0 gm/dl Albumin/Globulin Ratio 1.2 0.9-2 Assessment and Plan 70 year old female with accidental hydrogen peroxide ingestion, causing significant abdominal pain and blood streaked emesis, likely secondary to small Raquel-Petty tear Hydrogen peroxide ingestion - Patient made NPO with IV fluids, IV pantoprazole drip and administered IV Zofran for nausea and IV Dilaudid for abdominal pain, particularly when morphine did not improve symptoms - CXR showed no acute cardiopulmonary abnormality. - CT chest without contrast reported no extraluminal contrast, pneumomediastinum , or pneumothorax. Oral contrast seen in the esophagus; no superimposed mass lesion or stricture. Mild dependent/atelectatic opacities present within the lung bases. Incidental lower cervical spondylosis. - CT abdo pelvis showed small hiatal hernia with accentuated proximal gastric wall thickness. No extraluminal contrast, free air, or free fluid. Non- obstructive bowel gas pattern. Colonic diverticulosis. Uncomplicated umbilical hernia. Spondylosis L4-L5. - GI consulted for potential EGD. Patient declined EGD to assess for the severity of damage to esophagus/stomach/duodenum and prognosis. As such, recommended continue the PPI IV, start clear liquids as a trial, given her pain improved is a good sign. - Will clinically reasses with treatment depending on the findings. Raquel-Petty Tear - Dilaudid for pain - Daily CBC Hypothyroid - Continue levothyroxine DVT prophylaxis -SCDs Dispo - Telemetry Code Status - DNR Resident Physician Supervision Note: I interviewed and examined the patient. Discussed with Dr. Smith and agree with findings and plan as documented in the note. Any exceptions or clarifications are listed here: None Documented By: Carlton Valencia feeling better, overall less pain and no further vomiting. imaging reviewed. GI input appreciated. vitals noted, nad, breathing unlabored, abd soft nd nt no guarding no rebound no rigidity ap - accidental caustic ingestion. improving. clear liquids. supportive care. doing better Continued [facility] stay due to: inadequate po fluid intake, inadequate oral pain control, multiple IV medications needed
--- NOTE | 2016-03-13 17:58 | GASTROINTESTINAL CONSULTATION ---
DATE OF CONSULTATION: 03/13/2016 REASON FOR CONSULTATION: Caustic ingestion. CHIEF COMPLAINT: The patient has now been vomiting blood. 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 She read about hydrogen peroxide being ingested with some benefit to her health. She was at the gym then later about 3:00 p.m. she ingested about 30 mL of hydrogen peroxide which she thought was diluted but realized after a bout of significant burning that it was non-diluted and she tried to spit out as much as possible and tried to drink some water. She came to the Emergency Room somewhat later and it was recommended she have an EGD and be observed overnight, but she felt better and went home, but she came back to the Emergency Room later in the evening with worsening epigastric pain up to 8/10. She also has been vomiting and after several episodes of vomiting, has had some streaks of blood in her vomitus. The patient had a CT scan of the chest, abdomen and pelvis, I do not have formal report, preliminary report was negative for perforation. The epigastric pain was 8/10 this morning about 0700 when I saw her was 1/10. No change in bowels, no dysphagia. No significant change in her weight, no fever. Does have some history of GERD symptoms. She states she has never had an EGD or colonoscopy before. ALLERGIES: POLLEN. MEDICATIONS ON ADMISSION: Aspirin, levothyroxine, Zocor. PROBLEMS AND SURGERY: Hysterectomy, appendectomy. She has hypothyroidism. FAMILY HISTORY: Coronary artery disease. SOCIAL HISTORY: Tobacco negative. REVIEW OF SYSTEMS: CONSTITUTIONAL: Negative. EYES: Negative. EARS, NOSE, MOUTH AND THROAT: Negative. CARDIOVASCULAR: Negative. RESPIRATORY: Negative. GENITOURINARY: Negative. MUSCULOSKELETAL: Arthritis. INTEGUMENTARY: Negative. NEUROLOGIC: Negative. PSYCHIATRIC: Negative. ENDOCRINE: Hypothyroidism. HEMATOLOGIC: Negative. PHYSICAL EXAMINATION: GENERAL: Female, appears stated age, in no acute distress. VITAL SIGNS: Her most recent vital signs are in the chart. When I saw her was temp 36.6, pulse 80, respirations 18, BP of 130/77, and O2 saturation 98% on room air. EYES: Conjunctivae and lids normal. ENT: Hearing grossly normal. NECK: Without obvious mass or thyroid enlargement. RESPIRATORY: Normal effort, clear to anterior auscultation. CARDIOVASCULAR: Regular rate and rhythm. EXTREMITIES: Without edema. ABDOMEN: Positive bowel sounds. There is subjective epigastric pain but no guarding or rebound. No obvious organomegaly or masses are appreciated. LYMPH: No obvious neck or groin nodes. MUSCULOSKELETAL: Digits and nails normal. SKIN: Without obvious rash or induration. NEUROLOGIC: Cranial nerves intact. Sensation intact. PSYCHIATRIC: Recent and remote memory good. Insight and judgment good. DATA: In addition to above, the chest x-ray was negative. CBC: Elevated white count 13.4. CMP; glucose 18, otherwise unremarkable. IMPRESSION AND PLAN: 1. Alkaline ingestion. 2. Epigastric pain. 3. Hematemesis. 4. Elevated white count. We know that alkaline ingestion can cause peptic disease in the esophagus, stomach and the duodenum. I do not know the extent of disease, although with her pain being improved that is a good sign. I discussed doing an EGD on the patient to assess for the severity of damage and prognosis, but she declines at this time. I would continue the PPI IV for now. I do recommend that we start her on clear liquids as a trial and see how she does with further therapy and treatment depending on the results of that. MTDD
[2016-03-14] VITALS (7 sets, daily range): BP systolic 105–131; BP diastolic 62–74; PULSE 64–89; TEMP 36.5–37; O2SAT 94–96
[2016-03-14] MEDS: PANTOprazole INJ 40 MG in DEXTROSE 5% 100ML IV SCH ×2 (02:29→08:00)
[2016-03-14 07:25] LABS: BASO % 0.4 %; BASO ABS # 0.03 K/uL (0-0.2); COMPLETE YES; EOS % 10.2 %; HEMATOCRIT 40.8 % (37-47); IG% 0.4 %; LYMPH % 24.2 %; LYMPH ABS # 1.99 K/uL (1.2-3.4); MEAN CELL VOLUME 89.3 fL (80-100); MEAN CORPUSCULAR HEMOGLOBIN 29.5 pg (25-34); MEAN CORPUSCULAR HGB CONC 33.1 g/dl (32-36); MEAN PLATELET VOLUME 12.1 fL (7.4-10.4); MONO % 8.5 %; NEUT % 56.3 %; PLATELET COUNT 181 K/uL (130-400); RED BLOOD COUNT 4.57 M/uL (4.2-5.4); WHITE BLOOD COUNT 8.23 K/uL (4.8-10.8)
[2016-03-14 07:39] LABS: PROTHROMBIN TIME (PATIENT) 10.7 SECONDS (9.0-12.0)
[2016-03-14 08:00] LABS: BUN/CREATININE RATIO 16.5 (10-20); CALCIUM 8.9 mg/dl (8.5-10.1); CREATININE 0.79 mg/dl (0.60-1.20); POTASSIUM 4.2 mmol/L (3.5-5.1)
[2016-03-14] MEDS: SODIUM CHLOR 0.45% + 20MEQ KCL 1,000 ML IV SCH ×2 (08:00→08:30)
[2016-03-14 08:03] LABS: ALB/GLOB RATIO 1.2 (0.9-2)
--- NOTE | 2016-03-14 08:13 | Gastroenterology Progress Note ---
Progress Note Date of Service: Mar 14, 2016 Subjective Pt evaluation today including: conversation w/ patient, physical exam, chart review, lab review, review of studies, review of inpatient medication list CC F/u epigastric pain. n;v HPI Tolerating clear liquid dieat for 24 hours. NO abd pain except on exam. NO stools. Review of Systems Respiratory: No shortness of breath Cardiac: No chest pain Medications Current Inpatient Medications Medications (Trade) Dose Ordered Sig/Irineo Route Start Time Stop Time Status Last Admin Dose Admin Ondansetron HCl (Zofran Inj) 4 mg Q6H PRN IV 03/13/16 00:30 04/12/16 00:29 03/13/16 18:37 4 MG Hydromorphone HCl 0.5 mg 0.5 mg Q4H PRN IV 03/13/16 00:30 03/27/16 00:29 03/13/16 18:37 0.5 MG Potassium Chloride/Sodium Chloride 1,000 ml @ 150 mls/hr Q6H40M IV 03/13/16 01:30 04/12/16 01:29 03/14/16 08:00 150 MLS/HR Pantoprazole Sodium 40 mg/ Dextrose 100 ml @ 20 mls/hr Q5H IV 03/13/16 00:45 04/12/16 00:44 03/14/16 08:00 20 MLS/HR Levothyroxine Sodium/Syringe (Synthroid Inj/ Syringe) 5 ml @ 2 mls/min DAILY@09 IV 03/13/16 09:00 04/12/16 08:59 03/13/16 09:26 2 MLS/MIN Objective Vital Signs Date Time Temp Pulse Resp B/P Pulse Ox O2 Delivery O2 Flow Rate FiO2 03/14/16 07:23 37.0 76 18 131/74 96 Room Air 03/14/16 04:00 95 Room Air 03/14/16 03:05 36.5 64 16 105/62 95 Room Air 03/14/16 00:00 94 Room Air 03/13/16 23:08 36.9 69 16 101/62 95 Room Air 03/13/16 20:25 36.6 65 18 106/68 95 Room Air 03/13/16 20:00 94 Room Air 03/13/16 16:00 96 Room Air 03/13/16 15:09 36.7 68 18 112/66 94 Room Air 03/13/16 12:00 97 Room Air 03/13/16 11:33 36.5 70 18 121/74 96 Room Air 03/13/16 11:32 36.8 69 18 115/68 96 Room Air Physical Exam General Appearance: WD/WN, no apparent distress Respiratory/Chest: lungs clear, no respiratory distress Abdomen: normal bowel sounds, soft, no organomegaly, + tenderness (subjective epigastric pain but no n/v) Laboratory Results Last 24 Hours Test 03/14/16 06:48 White Blood Count 8.23 K/uL Red Blood Count 4.57 M/uL Hemoglobin 13.5 g/dL Hematocrit 40.8 % Mean Corpuscular Volume 89.3 fL Mean Corpuscular Hemoglobin 29.5 pg Mean Corpuscular Hemoglobin Concent 33.1 g/dl Platelet Count 181 K/uL Mean Platelet Volume 12.1 fL Neutrophils (%) (Auto) 56.3 % Lymphocytes (%) (Auto) 24.2 % Monocytes (%) (Auto) 8.5 % Eosinophils (%) (Auto) 10.2 % Basophils (%) (Auto) 0.4 % Neutrophils # (Auto) 4.64 K/uL Lymphocytes # (Auto) 1.99 K/uL Monocytes # (Auto) 0.70 K/uL Eosinophils # (Auto) 0.84 K/uL Basophils # (Auto) 0.03 K/uL RDW Standard Deviation 42.2 fL RDW Coefficient of Variation 12.9 % Immature Granulocyte % (Auto) 0.4 % Immature Granulocyte # (Auto) 0.03 K/uL Prothrombin Time 10.7 SECONDS Prothromb Time International Ratio 1.0 Sodium Level 142 mmol/L Potassium Level 4.2 mmol/L Chloride Level 110 mmol/L Carbon Dioxide Level 23 mmol/L Anion Gap 9.0 mmol/L Blood Urea Nitrogen 13 mg/dl Creatinine 0.79 mg/dl Est Creatinine Clear Calc Drug Dose 66.8 ml/min Estimated GFR () 87.9 Estimated GFR (Non- 75.8 BUN/Creatinine Ratio 16.5 Random Glucose 86 mg/dl Calcium Level 8.9 mg/dl Total Bilirubin 0.6 mg/dl Aspartate Amino Transf (AST/SGOT) 13 U/L Alanine Aminotransferase (ALT/SGPT) 25 U/L Alkaline Phosphatase 65 U/L Total Protein 6.2 gm/dl Albumin 3.4 gm/dl Globulin 2.8 gm/dl Albumin/Globulin Ratio 1.2 Assessment and Plan Alkali ingestion----clinically improved epigastric pain--improved hematemesis--resolved Advance to solid diet and if tolerated can be DCed today on 6 weeks of protonix 40 mg bid. Outpt GI f/u prn.
--- NOTE | 2016-03-14 08:44 | DIAGNOSTIC IMAGING REPORT ---
PA CHEST WITH ABDOMINAL SERIES CLINICAL HISTORY: Hematemesis. Hydrogen peroxide ingestion. FINDINGS: A PA chest radiograph is compared to study dated 03/13/2016. The cardiomediastinal silhouette is unremarkable. The lungs and pleural spaces are clear. No pneumothorax is seen. The skeletal structures are osteopenic. The bony thorax is grossly intact. Supine and erect abdominal radiographs are correlated with abdominal CT dated 03/12/2016 an radiographs dated 03/13/2016. There is a nonobstructed abdominal bowel gas pattern. No intraperitoneal free air is seen. Enteric contrast is again noted in the right colon. Numerous calcified phleboliths are seen in the pelvis. The lumbosacral spine and bony pelvis appear intact. IMPRESSION: 1. No active disease in the chest. 2. Nonobstructed abdominal bowel gas pattern. 3. No significant change from yesterday. Electronically signed by: Todd Hernandez M.D. 03/14/2016 8:43 AM Dictated Date/Time: 03/14/2016 8:42 AM
[2016-03-14] MEDS: LEVOTHYROXINE SODIUM INJ 100 MCG in SYRINGE 0 ML IV SCH (09:41)
[2016-03-14] MEDS ORDERED: LEVOTHYROXINE 200 MCG TAB PO ONE (10:45)
[2016-03-14] MEDS ORDERED: TRAMADOL HCL 50 MG TAB PO STA (11:20)
[2016-03-14] MEDS ORDERED: TRAMADOL HCL 50 MG TAB ONE (11:24)
[2016-03-14] MEDS ORDERED: TRAMADOL HCL 50 MG TAB PO PRN ×2 (11:30→12:30)
[2016-03-14] MEDS ORDERED: KETOROLAC TROMETHAMINE 10 MG TAB PO PRN (12:15)
[2016-03-14] MEDS ORDERED: ONDA4TAB10 SL (17:26)
[2016-03-14] MEDS ORDERED: PRT40 PO (17:26)
[2016-03-14] MEDS ORDERED: ULT50X PO (17:26)
--- NOTE | 2016-03-14 17:38 | Discharge Instructions ---
Discharge Instructions Admission Reason for Admission: Accidental Ingestion Of Substance Discharge Discharge Diagnosis / Problem: caustic ingestion Discharge Goals Goal(s): Diagnostic testing, Therapeutic intervention Activity Recommendations Activity Limitations: resume your previous activity take the protonix twice a day for the next 6 weeks, then as you're getting better, Dr Pepper and Dr Arvizu can guide you on reducing vs stopping. don't take the ranitidine while you're taking the protonix. hold off on your aspirin for the short term -- as you're improving, Dr Pepper / Dr Arvizu can let you know when it's safe to cautiously resume the aspirin. also during the same time, obviously avoid ibuprofen, naproxen, other NSAIDs if you have any sudden worsening, or pain that seems to be building despite taking the ultram - then we'd also want you seen right away. . Current Hospital Diet Patient's current hospital diet: Regular Diet Discharge Diet Recommended Diet: Regular Diet Pending Studies Studies pending at discharge: no Medical Emergencies . Who to Call and When: Medical Emergencies: If at any time you feel your situation is an emergency, please call 911 immediately. . Non-Emergent Contact Non-Emergency issues call your: Primary Care Provider, Email Marketing Specialist . . "Provider Documentation" section prepared by Carlton Valencia. VTE Core Measure Inpt VTE Proph given/why not?: SCD's
[2016-03-14] MEDS ORDERED: PANTOprazole SOD 40 MG TAB PO SCH (21:00)
--- NOTE | 2016-03-14 21:42 | Discharge Summary ---
Discharge Summary Admission Date: Mar 13, 2016 at 00:28 Discharge Date: Mar 14, 2016 Discharge Disposition: Home Principal Diagnosis: Acididental hydrogen peroxide ingestion Immunizations: Have You Had Influenza Vaccine: N/A History of Tetanus Vaccine?: Unknown History of Pneumococcal: Unknown History of Hepatitis B Vaccine: Yes Hepatitis Immunization Date: Mar 19, 2004 (Alka. Smith MD) Medication Reconciliation New Medications: Ondasetron Odt (Zofran Odt) 4 Mg Tab 4 MG SL Q6H for Nausea, #30 TAB Pantoprazole (Pantoprazole Sodium) 40 Mg Tab 40 MG PO BID, #60 TAB Tramadol HCl (Tramadol HCl) 50 Mg Tab 50 MG PO Q4H PRN for Pain, #30 TAB Continued Medications: Levothyroxine Sodium (Levothyroxine Sodium) 200 Mcg Tab 200 MCG PO DAILY, TAB Simvastatin (Zocor) 40 Mg Tab 40 MG PO DAILY, TAB Discontinued Medications: Aspirin (Aspirin Ec) 81 Mg Tab 81 MG PO DAILY Discharge Exam Patient continuing to feel better today. Her throat is still a little scratchy, but she denies throat soreness, difficulty swllowing, shortness of breath. She is currently on a liquid diet and tolerating it well. She denies nausea or further emesis/hematemesis. Her abdominal pain is still present on palpation or upon laughing. She describes it as felt in the RLQ. in addition to the epigastric region. No issues with urination and she has not had a bowel movement yet. Patient slept well, and is hopeful for home soon. Review of Systems: Constitutional: No chills, No fever, No sweats Respiratory: No cough, No hemoptysis, No shortness of breath, No wheezing Cardiovascular: No chest pain, No edema, No palpitations Abdomen: + pain, No GI bleeding, No constipation, No diarrhea, No nausea, No vomiting Genitourinary - Female: No dysuria, No hematuria Physical Exam: General Appearance: WD/WN, no apparent distress ENT: pharynx normal Neck: supple Respiratory/Chest: chest non-tender, lungs clear, normal breath sounds, no respiratory distress Cardiovascular: regular rate, rhythm, no edema, no murmur Abdomen / GI: normal bowel sounds, soft, no organomegaly, + tenderness Extremities: no calf tenderness, no pedal edema Neurologic/Psychiatric: alert, normal mood/affect, oriented x 3 Skin: normal color, warm/dry, no rash (Alka. Smith MD) Hospital Course 70 year old female with accidental hydrogen peroxide ingestion, causing significant abdominal pain and blood streaked emesis, likely secondary to small Raquel-Petty tear Hydrogen peroxide ingestion - Patient made NPO with IV fluids, IV pantoprazole drip and administered IV Zofran for nausea and IV Dilaudid for abdominal pain, particularly when morphine did not improve symptoms - CXR showed no acute cardiopulmonary abnormality. - CT chest without contrast reported no extraluminal contrast, pneumomediastinum , or pneumothorax. Oral contrast seen in the esophagus; no superimposed mass lesion or stricture. Mild dependent/atelectatic opacities present within the lung bases. Incidental lower cervical spondylosis. - CT abdo pelvis showed small hiatal hernia with accentuated proximal gastric wall thickness. No extraluminal contrast, free air, or free fluid. Non- obstructive bowel gas pattern. Colonic diverticulosis. Uncomplicated umbilical hernia. Spondylosis L4-L5. - GI consulted for potential EGD. Given risk of perforation and clinical improvement, EGD offered as choice to patient. Patient declined EGD to assess for the severity of damage to esophagus/stomach/duodenum and prognosis. As such , recommended continue the PPI IV, start clear liquids as a trial, given her pain improved is a good sign. - Patient tolerated diet well, and advanced to solid diet. - Repeat CXR unchanged from previous - Patient discharged on pantoprazole 40mg BID x 6 weeks (stop ranitidine during this course) - Advised to stop aspirin and NSAIDs in the interim until symptoms completely resolved. Follow up with PCP/GI to discuss when safe to resume - Recommended GI follow up PRN Raquel-Petty Tear - Daily CBC showed stable hemoglobin/hematocrit - No further hematemesis Abdominal pain - IV Dilaudid for pain, particularly as IV morphine not effective - Significantly improved - Switched to PO 50mg tramadol PRN pain on discharge Hypothyroid - Continue levothyroxine DVT prophylaxis -SCDs Dispo - Telemetry Code Status - DNR This includes examination of the patient, discharge planning, medication reconciliation, and communication with other providers. (Alka. Smith MD) Resident Physician Supervision Note: I interviewed and examined the patient. Discussed with Dr. Smith and agree with findings and plan as documented in the note. Any exceptions or clarifications are listed here: None Documented By: Carlton Valencia seen twice on day of discharge - feeling much better, ate well with regular food. pain off and on but PO pain meds controlling and definitely improving. Xrays without evidence of acute worsening vitals noted, abd soft caustic ingestion - fortunately improved, doing well. stable for home - protonix BID x 6wks, then taper vs stop per PCP and GI. outpt f/u in regards to scopes will be dictated by her condition at f/u w PCP and GI. prn tramadol and zofran. stable for home (Carlton Valencia, D.O.) Discharge Instructions Please refer to the electronic Patient Visit Report (Discharge Instructions) for additional information. (Alka. Smith MD)
[2016-03-15] MEDS ORDERED: LEVOTHYROXINE 200 MCG TAB PO SCH (06:30)
== END 2016-03-14 18:04 | disposition home or self-care (01) | DRG 917 ==
LOC: ENRESERVTM → ENRESERVDT → C.EDB 21:52 → C.MED 03-13 00:28
PROVIDERS: ADMIT Hospitalist; ATTEND Family Medicine
DX: T49.0X1A Poisoning by local antifungal, anti-infective and anti-inflammatory drugs, accidental (unintentional), initial encounter (principal); K22.6 Gastro-esophageal laceration-hemorrhage syndrome; E03.9 Hypothyroidism, unspecified; K57.30 Diverticulosis of large intestine without perforation or abscess without bleeding; K44.9 Diaphragmatic hernia without obstruction or gangrene; M47.896 Other spondylosis, lumbar region; Z66 Do not resuscitate; Z79.82 Long term (current) use of aspirin; Z90.49 Acquired absence of other specified parts of digestive tract; Z90.710 Acquired absence of both cervix and uterus; Z82.49 Family history of ischemic heart disease and other diseases of the circulatory system; Z83.6 Family history of other diseases of the respiratory system; X58.XXXA Exposure to other specified factors, initial encounter; Y92.019 Unspecified place in single-family (private) house as the place of occurrence of the external cause; Z79.899 Other long term (current) drug therapy

== ENCOUNTER 2016-05-05 04:57 | Inpatient (IN) | payer OTHER ==
[~2016-05-05] VITALS: Ht 165.1 cm; Wt 77.3 kg
[~2016-05-05 04:57] MED LIST changes: -ASPEC81 PO; -ASPI81TA28 PO; -LEVO200T20 PO; +ONDA4TAB10 SL; +PRT40 PO; +ULT50X PO
[2016-05-05] MEDS ORDERED: ONDANSETRON INJ 2 MG/ML 2 ML VIAL ONE ×2 (05:18→16:25)
[2016-05-05] MEDS ORDERED: PANTOprazole INJ 40 MG in SYRINGE 0 ML IV ONE (05:30)
[2016-05-05] MEDS ORDERED: PANT40TA PO (05:34)
[2016-05-05] MEDS ORDERED: TRAM-10 PO (05:35)
[2016-05-05] MEDS ORDERED: ONDA4TAB46 SL (05:36)
--- NOTE | 2016-05-05 05:37 | EMERGENCY ROOM VISIT NOTE ---
History Report prepared by Joaquina: Ra Marie Under the Supervision of: Dr. Sindy Goel D.O. 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 History of Present Illness The patient is a 70 year old female who presents to the Emergency Room with complaints of episodes of vomiting beginning about 4.5 hours ago. 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 She reports accidentally drinking hydrogen peroxide about 2 months ago and was admitted to the hospital. The patient was discharged on Protonix, and she indicates that she has had intermittent vomiting since stopping the Protonix one week ago. She notes she did not have intermittent vomiting prior to drinking the hydrogen peroxide. She reports she has been lethargic and has had increased gas lately. She last ate yesterday and had chicken noodle soup. She denies having any other medical problems. Source of History: patient Onset: about 4.5 hours ago Position: abdomen Quality: other (vomiting) Timing: other (episodes) Associated Symptoms: + abdominal pain, + fatigue, + nausea Review of Systems See HPI for pertinent positives & negatives. A total of 10 systems reviewed and were otherwise negative. Past Medical & Surgical Medical Problems: (1) Accidental ingestion of substance Surgical Problems: (1) S/P appendectomy (2) S/P hysterectomy Family History Cancer FH: heart disease FHx: gallbladder disease FHx: lung disease Hypertension Social History Smoking Status: Never Smoker Marital Status: Housing Status: lives with significant other Occupation Status: employed Current/Historical Medications Scheduled Levothyroxine Sodium (Levothyroxine Sodium), 200 MCG PO DAILY Pantoprazole (Protonix), 40 MG PO DAILY Simvastatin (Zocor), 40 MG PO QPM Scheduled PRN Ondansetron Hcl (Zofran), 4 MG SL Q6 PRN for Nausea Tramadol (Ultram), 50 MG PO Q4H PRN for Pain Allergies Coded Allergies: POLLEN (Verified Allergy, Unknown, 05/05/16) Physical Exam Vital Signs Date Time Temp Pulse Resp B/P Pulse Ox O2 Delivery O2 Flow Rate FiO2 05/05/16 10:12 88 20 126/64 100 Room Air 05/05/16 09:05 88 20 123/58 97 Room Air 05/05/16 09:02 65 05/05/16 07:56 65 17 144/77 97 Room Air 05/05/16 06:45 73 18 149/76 97 Room Air 05/05/16 05:45 82 05/05/16 05:01 172/89 05/05/16 04:55 37.0 93 18 166/102 93 Room Air Physical Exam General: Patient was vomiting and dry heaving on exam. HEENT: Head - normocephalic and atraumatic Pupils are equal, round, and reactive to light. Extraocular eye muscles are intact, and sclera are anicteric. Nose - moist nasal mucosa without discharge. Mouth - moist buccal mucosa. Oropharynx is nonerythematous and there is no tonsillar exudate or edema noted. Neck: Supple; no JVD, nuchal rigidity, cervical lymphadenopathy. Heart: Regular rate and rhythm. There is a normal S1 and S2 with no murmurs, clicks, or gallops appreciated. Lungs: Clear to auscultation bilaterally with no wheezes, rales, or rhonchi. Abdomen: Soft; epigastric pain with palpation; nondistended, with good bowel sounds. There are no palpable pulsatile masses or hepatosplenomegaly. There is no guarding, rigidity, or rebound noted. Extremities: No evidence of cyanosis, clubbing, or edema. There are easily palpable peripheral pulses. Skin: warm and dry with good turgor and no rashes. Medical Decision & Procedures Laboratory Results 05/05/16 05:57 Red Blood Count 4.94, Mean Corpuscular Volume 85.8, Mean Corpuscular Hemoglobin 29.1, Mean Corpuscular Hemoglobin Concent 34.0, Mean Platelet Volume 11.5, Neutrophils (%) (Auto) 82.9, Lymphocytes (%) (Auto) 10.9, Monocytes (%) (Auto) 4.4, Eosinophils (%) (Auto) 1.2, Basophils (%) (Auto) 0.4, Neutrophils # (Auto) 8.56, Lymphocytes # (Auto) 1.13, Monocytes # (Auto) 0.45, Eosinophils # (Auto) 0.12, Basophils # (Auto) 0.04 05/05/16 05:57 Test 3/20/17 05:57 White Blood Count 10.32 K/uL (4.8-10.8) Red Blood Count 4.94 M/uL (4.2-5.4) Hemoglobin 14.4 g/dL (12.0-16.0) Hematocrit 42.4 % (37-47) Mean Corpuscular Volume 85.8 fL (80-100) Mean Corpuscular Hemoglobin 29.1 pg (25-34) Mean Corpuscular Hemoglobin Concent 34.0 g/dl (32-36) Platelet Count 208 K/uL (130-400) Mean Platelet Volume 11.5 fL (7.4-10.4) Neutrophils (%) (Auto) 82.9 % Lymphocytes (%) (Auto) 10.9 % Monocytes (%) (Auto) 4.4 % Eosinophils (%) (Auto) 1.2 % Basophils (%) (Auto) 0.4 % Neutrophils # (Auto) 8.56 K/uL (1.4-6.5) Lymphocytes # (Auto) 1.13 K/uL (1.2-3.4) Monocytes # (Auto) 0.45 K/uL (0.11-0.59) Eosinophils # (Auto) 0.12 K/uL (0-0.5) Basophils # (Auto) 0.04 K/uL (0-0.2) RDW Standard Deviation 39.3 fL (36.4-46.3) RDW Coefficient of Variation 12.5 % (11.5-14.5) Immature Granulocyte % (Auto) 0.2 % Immature Granulocyte # (Auto) 0.02 K/uL (0.00-0.02) Anion Gap 11.0 mmol/L (3-11) Est Creatinine Clear Calc Drug Dose 64.8 ml/min Estimated GFR () 82.8 Estimated GFR (Non- 71.4 BUN/Creatinine Ratio 24.7 (10-20) Calcium Level 9.3 mg/dl (8.5-10.1) Total Bilirubin 0.3 mg/dl (0.2-1) Direct Bilirubin < 0.1 mg/dl (0-0.2) Aspartate Amino Transf (AST/SGOT) 13 U/L (15-37) Alanine Aminotransferase (ALT/SGPT) 29 U/L (12-78) Alkaline Phosphatase 98 U/L (45-117) Total Creatine Kinase 56 U/L (26-192) Creatine Kinase MB < 0.5 ng/ml (0.5-3.6) Creatine Kinase MB Ratio (0-3.0) Troponin I < 0.015 ng/ml (0-0.045) Total Protein 7.5 gm/dl (6.4-8.2) Albumin 3.8 gm/dl (3.4-5.0) Lipase 130 U/L (73-393) Laboratory results per my review. Medications Administered Medications (Trade) Dose Ordered Sig/Irineo Route Start Time Stop Time Status Last Admin Dose Admin Ondansetron HCl 4 mg 4 mg STK-MED ONCE .ROUTE 05/05/16 05:18 05/05/16 05:22 DC 05/05/16 05:25 4 MG Pantoprazole Sodium/Syringe (Protonix Inj/ Syringe) 10 ml @ 5 mls/min NOW ONCE IV 05/05/16 05:30 05/05/16 05:31 DC 05/05/16 05:48 5 MLS/MIN Ondansetron HCl (Zofran Inj) 4 mg NOW STAT IV 05/05/16 05:52 05/05/16 05:53 DC 05/05/16 05:56 4 MG Ketorolac Tromethamine (Toradol Inj) 30 mg NOW STAT IV 05/05/16 06:14 05/05/16 06:15 DC 05/05/16 06:27 30 MG Hydromorphone HCl (Dilaudid Inj) 0.5 mg NOW STAT IV 05/05/16 06:55 05/05/16 06:56 DC 05/05/16 07:18 0.5 MG Hydromorphone HCl (Dilaudid Inj) 0.5 mg NOW STAT IV 05/05/16 09:09 05/05/16 09:11 DC 05/05/16 09:19 0.5 MG Metoclopramide HCl (Reglan Inj) 10 mg NOW STAT IV 05/05/16 09:09 05/05/16 09:11 DC 05/05/16 09:18 10 MG Procedure 0530: Ordered Pantoprazole Sodium 40 mg/Syringe 10 ml @ 5 mls/min IV. 0545: Ordered Maalox Susp 30 ml PO, and Lidocaine HCl 10 ml PO. 0552: Ordered Zofran Inj 4 mg IV. 0614: Ordered Toradol Inj 30 mg IV. 0655: Ordered Dilaudid Inj 0.5 mg IV. ECG Indication: vomiting Rate (beats per minute): 81 Rhythm: normal sinus Findings: no acute ischemic change, no ectopy ED Course 0520: Past medical records reviewed. The patient was evaluated in room A12B. A complete history and physical exam was performed. A twelve-lead EKG was obtained. An IV lock was initiated and labs were drawn as above. The patient was given 4 mg of IV Zofran for active vomiting upon my exam. 0530: Ordered Pantoprazole Sodium 40 mg/Syringe 10 ml @ 5 mls/min IV. 0543: I reassessed the patient and she is having some epigastric burning. 0545: Ordered Maalox Susp 30 ml PO, and Lidocaine HCl 10 ml PO. 0552: Ordered Zofran Inj 4 mg IV. 0614: Ordered Toradol Inj 30 mg IV. 0653: I reassessed the patient. She notes the Toradol did not help. I will give her Dilaudid which, she notes, has worked in the past. She will go for an US due to continued abdominal pain. On repeat physical exam, the patient has more concentrated pain in the epigastrium and right upper quadrant. 0655: Ordered Dilaudid Inj 0.5 mg IV. 0730: The patient was signed out to Dr. Mukherjee at the change of shift. Medical Decision The patient is a 70 year old female who presents to the Emergency Room with complaints of episodes of vomiting beginning about 4.5 hours ago. Differentials include esophagitis, esophageal perforation, perforated viscus, ulcerative disease, pancreatitis, small bowel obstruction, gastritis, , cardiac ischemia, and GERD. Laboratory Interpretations: No leukocytosis; stable H&H, BUN 21; creatinine 0.8 ; glucose 181; LFTs normal; lipase 130; negative cardiac enzymes. This is a 70-year-old female patient who presents emergency department with epigastric abdominal pain, nausea and vomiting. The patient has been having some intermittent vomiting over the past week which became much more severe today. She explains that 1 month ago, she ingested hydrogen peroxide and was thought to have significant damage to her esophagus from this. If fact, she explained that the director of global sales did not want perform an EGD at that time because of the risk of perforation. The patient had been on Protonix for that and was doing well until one week ago when she ran out of the Protonix. Since that time, she's had some mild epigastric discomfort and episodes of vomiting. The vomiting became much more severe today. Laboratory studies were unremarkable. Her pain seems to be concentrated in the epigastric and right upper quadrant so she will go for an ultrasound of the gallbladder. If this is unremarkable, the patient will most likely need GI evaluation and EGD. The case was signed out to Dr. Mukherjee at change of shift Impression Primary Impression: Vomiting Additional Impression: Epigastric pain Scribe Attestation The scribe's documentation has been prepared under my direction and personally reviewed by me in its entirety. I confirm that the note above accurately reflects all work, treatment, procedures, and medical decision making performed by me. Departure Information Referrals Lex Pepper MD (PCP) Patient Instructions My [facility] Problem Qualifiers
[2016-05-05] MEDS ORDERED: LIDOCAINE HCL 2% VISC SOLN 20 ML UDC PO STA (05:45)
[2016-05-05] MEDS ORDERED: ALUMINUM/MAGNESIUM SUSP 30 ML UDC PO STA (05:45)
[2016-05-05] MEDS ORDERED: ONDANSETRON INJ 2 MG/ML 2 ML VIAL IV STA (05:52)
[2016-05-05 06:12] LABS: BASO % 0.4 %; BASO ABS # 0.04 K/uL (0-0.2); COMPLETE YES; EOS % 1.2 %; HEMATOCRIT 42.4 % (37-47); IG% 0.2 %; LYMPH % 10.9 %; LYMPH ABS # 1.13 K/uL (1.2-3.4); MEAN CELL VOLUME 85.8 fL (80-100); MEAN CORPUSCULAR HEMOGLOBIN 29.1 pg (25-34); MEAN PLATELET VOLUME 11.5 fL (7.4-10.4); MONO % 4.4 %; NEUT % 82.9 %; PLATELET COUNT 208 K/uL (130-400); RED BLOOD COUNT 4.94 M/uL (4.2-5.4); WHITE BLOOD COUNT 10.32 K/uL (4.8-10.8)
[2016-05-05] MEDS ORDERED: KETOROLAC TROMETHAMINE 30 MG/ML VIAL IV STA (06:14)
[2016-05-05 06:33] LABS: ALT/SGPT 29 U/L (12-78); BLOOD UREA NITROGEN 21 mg/dl (7-18); BUN/CREATININE RATIO 24.7 (10-20); CALCIUM 9.3 mg/dl (8.5-10.1); CARBON DIOXIDE 22 mmol/L (21-32); CHLORIDE 107 mmol/L (98-107); CREATININE 0.83 mg/dl (0.60-1.20); GLUCOSE 181 mg/dl (70-99); POTASSIUM 4.3 mmol/L (3.5-5.1); SODIUM 140 mmol/L (136-145)
[2016-05-05 06:38] LABS: ALKALINE PHOSPHATASE 98 U/L (45-117); AST/SGOT 13 U/L (15-37)
[2016-05-05] MEDS ORDERED: HYDROmorphone INJ 0.5 MG/0.5 ML SYR IV STA ×2 (06:55→09:09)
[2016-05-05] MEDS ORDERED: OPTIRAY 320 IV PRN (08:00)
--- NOTE | 2016-05-05 08:01 | DIAGNOSTIC IMAGING REPORT ---
ABDOMINAL ULTRASOUND, RIGHT UPPER QUADRANT HISTORY: epigastric and RUQ pain. COMPARISON: Abdomen and pelvis CT 03/12/2016. FINDINGS: Pancreas: The pancreas demonstrates a normal echotexture. Liver: The liver is echogenic consistent with fatty change. Gallbladder: There is 1 cm gallstone. Gallbladder wall is top normal in thickness. CBD: 6 mm. Right kidney: No hydronephrosis. IMPRESSION: 1. Cholelithiasis. Gallbladder wall is top normal in thickness. 2. Hepatic steatosis. Electronically signed by: Vega Vo M.D. 05/05/2016 8:00 AM Dictated Date/Time: 05/05/2016 7:58 AM
--- NOTE | 2016-05-05 08:39 | DIAGNOSTIC IMAGING REPORT ---
ABDOMEN AND PELVIS CT WITH IV CONTRAST CT DOSE: 707.89 mGy.cm HISTORY: Pt c/o emesis TECHNIQUE: Multiaxial CT images of the abdomen and pelvis were performed following the use of intravenous contrast. COMPARISON STUDY: Abdomen and pelvis CT 03/12/2016. FINDINGS: Stable 4 mm nodule within the left lower lobe on image 11. No pneumoperitoneum. No pneumatosis. Small fat-containing umbilical hernia, unchanged. Hepatic steatosis. The gallbladder, spleen, adrenal glands, and pancreas are unremarkable. The kidneys enhance normally. No hydronephrosis. No retroperitoneal lymphadenopathy. Hysterectomy. A few colonic diverticula. No bowel wall thickening or obstruction. The appendix appears to be surgically absent. Questionable thickening at the ileocecal valve may represent stool. This was not present on the abdomen and pelvis CT performed 2 months earlier. IMPRESSION: 1. No definite bowel wall thickening or obstruction. 2. Questionable thickening at the ileocecal valve which may represent stool. However, if the patient is complaining of right lower quadrant pain considered follow-up CT with oral contrast for further evaluation. 3. A stable 4 mm nodule within the left lower lobe. Electronically signed by: Vega Vo M.D. 05/05/2016 11:08 AM Dictated Date/Time: 05/05/2016 8:24 AM
[2016-05-05] MEDS ORDERED: METOCLOPRAMIDE HCL INJ 5 MG/ML 2 ML VIAL IV STA (09:09)
[2016-05-05] MEDS ORDERED: TRAMADOL HCL 50 MG TAB PO PRN (11:00)
[2016-05-05] MEDS ORDERED: ONDANSETRON INJ 2 MG/ML 2 ML VIAL IV PRN (11:00)
[2016-05-05] MEDS ORDERED: POLYETHYLENE (MIRALAX) 17 GM PACK PO PRN (11:00)
[2016-05-05] MEDS ORDERED: MAGNESIUM HYDROXIDE SUSP 30 ML UDC PO PRN (11:00)
[2016-05-05] MEDS ORDERED: ACETAMINOPHEN 325 MG TAB PO PRN (11:00)
[2016-05-05] MEDS ORDERED: ALUMINUM/MAGNESIUM/SIMETH (MAALOX MAX) 30 ML UDC PO PRN (11:00)
--- NOTE | 2016-05-05 11:16 | History and Physical ---
History & Physical Date & Time of Service: May 05, 2016 at 10:56 Chief Complaint: vomiting Primary Care Physician: Lex Pepper MD History of Present Illness Source: patient, family, clinic records, hospital records Patient is a pleasant 70 y/o female, with PMHx of hypothyroidism and hyperlipidemia, who presented to the ED because of N/V w/ episodes of hematemesis. On 03/12/16, patient ingested hydrogen peroxide for health benefits. The hydrogen peroxide was to be diluted, but patient took it as its concentrated form. She was admitted to the hospital on 03/13/16 because of N/V with episodes of hematemesis. GI was consulted- EGD was deferred at that time because patient was improving well. She was discharged with Protonix 40 mg PO BID x4 weeks. During her treatment weeks of Protonix, patient states she was feeling well. Since stopping Protonix, she has been having episodes of N/V with hematemesis. Symptoms have been getting progressively worse. +N/V, abdominal pain. Patient denies any fever, chills, sweats, lightheadedness, dizziness, vision changes, CP, palpitations, edema, SOB, wheezing, cough, diarrhea, urinary symptoms, melena, numbness/tingling, weakness, muscle/joint pain, anxiety/depression, active bleeding, or new skin discoloration/changes. Past Medical/Surgical History Medical hx: 1. Hypothyroidism 2. Hyperlipidemia Surgical Problems: 1. s/p appendectomy 2. s/p hysterectomy Family History Cancer FH: heart disease FHx: gallbladder disease FHx: lung disease Hypertension Social History Smoking Status: Never Smoker Alcohol Use: occasionally Marital Status: Occupational Status: employed Immunizations History of Influenza Vaccine: N/A History of Tetanus Vaccine?: Unknown History of Pneumococcal: Unknown History of Hepatitis B Vaccine: Yes Hepatitis Immunization Date: Mar 19, 2004 Multi-Drug Resistant Organisms History of MDRO: No Allergies Coded Allergies: POLLEN (Verified Allergy, Unknown, 05/05/16) Home Medications Scheduled Levothyroxine Sodium (Levothyroxine Sodium), 200 MCG PO DAILY Pantoprazole (Protonix), 40 MG PO DAILY Simvastatin (Zocor), 40 MG PO QPM Scheduled PRN Ondansetron Hcl (Zofran), 4 MG SL Q6 PRN for Nausea Tramadol (Ultram), 50 MG PO Q4H PRN for Pain Physical Exam Vital Signs Date Time Temp Pulse Resp B/P Pulse Ox O2 Delivery O2 Flow Rate FiO2 05/05/16 09:05 88 20 123/58 97 Room Air 05/05/16 09:02 65 05/05/16 07:56 65 17 144/77 97 Room Air 05/05/16 06:45 73 18 149/76 97 Room Air 05/05/16 05:45 82 05/05/16 05:01 172/89 05/05/16 04:55 37.0 93 18 166/102 93 Room Air General Appearance: no apparent distress Head: normocephalic, atraumatic Eyes: normal inspection, PERRL ENT: hearing grossly normal Neck: supple Respiratory/Chest: lungs clear, no respiratory distress, no accessory muscle use Cardiovascular: regular rate, rhythm Abdomen/GI: soft, + tenderness (diffuse tenderness, >RUQ/epigastric regions ), + abnormal bowel sounds (high pitch BS) Extremities/Musculoskelatal: no calf tenderness, no pedal edema Neurologic/Psych: alert, normal mood/affect, oriented x 3 Skin: normal color, warm/dry, no rash Diagnostics Laboratory Results Results Past 24 Hours Test 05/05/16 05:57 Range/Units White Blood Count 10.32 4.8-10.8 K/uL Red Blood Count 4.94 4.2-5.4 M/uL Hemoglobin 14.4 12.0-16.0 g/dL Hematocrit 42.4 37-47 % Mean Corpuscular Volume 85.8 80-100 fL Mean Corpuscular Hemoglobin 29.1 25-34 pg Mean Corpuscular Hemoglobin Concent 34.0 32-36 g/dl Platelet Count 208 130-400 K/uL Mean Platelet Volume 11.5 7.4-10.4 fL Neutrophils (%) (Auto) 82.9 % Lymphocytes (%) (Auto) 10.9 % Monocytes (%) (Auto) 4.4 % Eosinophils (%) (Auto) 1.2 % Basophils (%) (Auto) 0.4 % Neutrophils # (Auto) 8.56 1.4-6.5 K/uL Lymphocytes # (Auto) 1.13 1.2-3.4 K/uL Monocytes # (Auto) 0.45 0.11-0.59 K/uL Eosinophils # (Auto) 0.12 0-0.5 K/uL Basophils # (Auto) 0.04 0-0.2 K/uL RDW Standard Deviation 39.3 36.4-46.3 fL RDW Coefficient of Variation 12.5 11.5-14.5 % Immature Granulocyte % (Auto) 0.2 % Immature Granulocyte # (Auto) 0.02 0.00-0.02 K/uL Sodium Level 140 136-145 mmol/L Potassium Level 4.3 3.5-5.1 mmol/L Chloride Level 107 98-107 mmol/L Carbon Dioxide Level 22 21-32 mmol/L Anion Gap 11.0 3-11 mmol/L Blood Urea Nitrogen 21 7-18 mg/dl Creatinine 0.83 0.60-1.20 mg/dl Est Creatinine Clear Calc Drug Dose 64.8 ml/min Estimated GFR () 82.8 Estimated GFR (Non- 71.4 BUN/Creatinine Ratio 24.7 10-20 Random Glucose 181 70-99 mg/dl Calcium Level 9.3 8.5-10.1 mg/dl Total Bilirubin 0.3 0.2-1 mg/dl Direct Bilirubin < 0.1 0-0.2 mg/dl Aspartate Amino Transf (AST/SGOT) 13 15-37 U/L Alanine Aminotransferase (ALT/SGPT) 29 12-78 U/L Alkaline Phosphatase 98 45-117 U/L Total Creatine Kinase 56 26-192 U/L Creatine Kinase MB < 0.5 0.5-3.6 ng/ml Creatine Kinase MB Ratio 0-3.0 Troponin I < 0.015 0-0.045 ng/ml Total Protein 7.5 6.4-8.2 gm/dl Albumin 3.8 3.4-5.0 gm/dl Lipase 130 73-393 U/L Diagnostic Radiology ABDOMINAL ULTRASOUND, RIGHT UPPER QUADRANT HISTORY: epigastric and RUQ pain. COMPARISON: Abdomen and pelvis CT 03/12/2016. FINDINGS: Pancreas: The pancreas demonstrates a normal echotexture. Liver: The liver is echogenic consistent with fatty change. Gallbladder: There is 1 cm gallstone. Gallbladder wall is top normal in thickness. CBD: 6 mm. Right kidney: No hydronephrosis. IMPRESSION: 1. Cholelithiasis. Gallbladder wall is top normal in thickness. 2. Hepatic steatosis. Electronically signed by: Vega Vo M.D. 05/05/2016 8:00 AM Dictated Date/Time: 05/05/2016 7:58 AM The status of this report is Signed. Draft = Not yet reviewed or approved by Radiologist. Signed = Reviewed and approved by Radiologist. ABDOMEN AND PELVIS CT WITH IV CONTRAST CT DOSE: 707.89 mGy.cm HISTORY: Pt c/o emesis TECHNIQUE: Multiaxial CT images of the abdomen and pelvis were performed following the use of intravenous contrast. COMPARISON STUDY: Abdomen and pelvis CT 03/12/2016. FINDINGS: Stable 4 mm nodule within the left lower lobe on image 11. No pneumoperitoneum. No pneumatosis. Small fat-containing umbilical hernia, unchanged. Hepatic steatosis. The gallbladder, spleen, adrenal glands, and pancreas are unremarkable. The kidneys enhance normally. No hydronephrosis. No retroperitoneal lymphadenopathy. Hysterectomy. A few colonic diverticula. No bowel wall thickening or obstruction. The appendix appears to be surgically absent. Questionable thickening at the ileocecal valve may represent stool. This was not present on the abdomen and pelvis CT performed 2 months earlier. IMPRESSION: 1. No definite bowel wall thickening or obstruction. 2. Questionable thickening at the ileocecal valve likely represents stool. However, if the patient is complaining of right lower quadrant pain considered follow-up CT with oral contrast for further evaluation. 3. A stable 4 mm nodule within the left lower lobe. EKG YANET JORDAN ID:[id number] 05-MAY-2016 05:40:31 [facility] Normal sinus rhythm Normal ECG When compared with ECG of 12-MAR-2016 22:08, No significant change was found 25mm/s 10mm/mV 150Hz 8.0 SP2 12SL 241 LINDA: 9 Referred by: Referred Self Unconfirmed Vent. rate 81 BPM LA interval 180 ms QRS duration 82 ms QT/QTc 368/427 ms P-R-T axes 63 -12 22 1945 (70 yr) Female Room: Loc:15 Prototype Machinist:ASHUTOSH Velazco ind: Impression Assessment and Plan 70 y/o female, with PMHx of hypothyroidism and hyperlipidemia, who presented to the ED because of N/V w/ episodes of hematemesis. N/V w/ episodes of hematemesis, likely secondary to hydrogen peroxide ingestion on 03/12/16- ?ulcer: - Admit to med/surg - NPO - IV NSS @ 100 ml/hr - IV Protonix - IV Dilaudid for pain control--> last admission for similar symptoms, Morphine was ineffective - IV Zofran - Follow PRP, CBC, and mag level - RUQ US- Cholelithiasis. Gallbladder wall is top normal in thickness. Hepatic steatosis - Abdomen/pelvic CT- No definite bowel wall thickening/obstruction. Questionable thickening at the ileocecal valve likely represents stool. Stable 4 mm nodule within the left lower lobe. - Consult GI, appreciate recommendations--> ?EGD Hypothyroidism: Continue Synthroid 200 mcg PO daily once tolerating oral intake Hyperlipidemia: Continue Zocor 40 mg PO HS once tolerating oral intake GI Prophylaxis: Maalox PRN, IV Zofran PRN, Colace and/or Milk of Mag PRN DVT prophylaxis: Ambulation, CRISTOBAL and SCDs - Hold chemical therapy due to hematemesis Code Status: LEVEL V, DNR Dispo: From home. No discharge needs anticipated Level of Care Med/Surg Resuscitation Status DO NOT RESUSCITATE VTE Prophylaxis VTE Risk Assessment Done? Y/N: Yes Risk Level: Low Given or contraindicated: T.E.D. Stockings, SCD's
[2016-05-05 11:25] VITALS: O2SAT 97; Ht 165.1 cm; Wt 77.3 kg
[2016-05-05 11:27] VITALS: O2SAT 97
[2016-05-05 11:55] VITALS: BP 175/72; PULSE 79; TEMP 36.8; O2SAT 95
[2016-05-05] MEDS: SODIUM CHLORIDE 0.9% 1000ML 1,000 ML IV SCH ×2 (13:31→20:35)
[2016-05-05] MEDS: HYDROmorphone INJ 0.5 MG/0.5 ML SYR IV PRN ×2 (13:36→19:16)
[2016-05-05 15:13] VITALS: BP 101/55; PULSE 88; TEMP 37.1; O2SAT 92
[2016-05-05 15:33] VITALS: BP 101/55; PULSE 88; TEMP 37.1; O2SAT 92
[2016-05-05] MEDS ORDERED: PROPOFOL IV EMULSION 10 MG/ML 20 ML VIAL IV ONE (16:03)
[2016-05-05] MEDS ORDERED: LIDOCAINE HCL 2% 2 ML VIAL (20MG/ML) ONE (16:03)
--- NOTE | 2016-05-05 16:14 | Endo History and Physical ---
History & Physical Date of Service: May 05, 2016. Chief Complaint: Nausea and vomiting Referring Physician: Dr Pepper History of Present Illness For EGD Past Surgical History Hx Cardiac Surgery: No Hx Abdominal Surgery: Yes (Cholecystectomy, appendectomy, hysterectomy 1970s) Hx Post-Op Nausea and Vomiting: No Hx Cancer Surgery: No Hx Thoracic Surgery: No Hx Orthopedic: No Hx Urinary Tract Surgery: No Social History Smoking Status: Never Smoker Hx Substance Use: No Hx Alcohol Use: Yes (wine) Allergies Coded Allergies: POLLEN (Verified Allergy, Unknown, 05/05/16) Current Medications Reported Home Medications Medications Dose Route/Sig Max Daily Dose Days Date Category Zofran (Ondansetron HCl) 4 Mg Tab 4 Mg SL Q6 PRN 05/05/16 Reported Ultram (Tramadol HCl) 50 Mg Tab 50 Mg PO Q4H PRN 05/05/16 Reported Protonix (Pantoprazole Sodium) 40 Mg Tab 40 Mg PO DAILY 05/05/16 Reported Levothyroxine Sodium 200 Mcg Tab 200 Mcg PO DAILY 03/12/16 Reported Zocor (Simvastatin) 40 Mg Tab 40 Mg PO QPM 08/30/11 Reported Vital Signs Weight (Kilograms): 77.270 Height (Feet): 5 Height (Inches): 5.00 Date Time Temp Pulse Resp B/P Pulse Ox O2 Delivery O2 Flow Rate FiO2 05/05/16 15:46 36.9 104 16 135/62 97 Room Air 05/05/16 15:39 Room Air 05/05/16 15:33 37.1 88 16 101/55 92 Room Air 05/05/16 15:13 37.1 88 16 101/55 92 Room Air 05/05/16 12:25 Room Air 05/05/16 11:55 36.8 79 18 175/72 95 Room Air 05/05/16 11:27 88 20 123/58 97 Room Air 05/05/16 11:27 88 20 123/58 97 05/05/16 11:25 97 Room Air 05/05/16 10:12 88 20 126/64 100 Room Air 05/05/16 09:05 88 20 123/58 97 Room Air 05/05/16 09:02 65 05/05/16 07:56 65 17 144/77 97 Room Air 05/05/16 06:45 73 18 149/76 97 Room Air 05/05/16 05:45 82 05/05/16 05:01 172/89 05/05/16 04:55 37.0 93 18 166/102 93 Room Air Physical Exam General Appearance: WD/WN Respiratory/Chest: Respiratory effort: no dyspnea Cardiovascular: Heart Auscultation: RRR Abdomen: Inspection & Palpation: soft (Nausea and vomiting for EGD)
--- NOTE | 2016-05-05 16:26 | Discharge Instructions ---
Endoscopy Patient Instructions Date / Procedure(s) Performed May 05, 2016. EGD Allergy Information Coded Allergies: POLLEN (Verified Allergy, Unknown, 05/05/16) Discharge Date / Findings May 05, 2016. MW tear Medication Instructions Restart Stopped Medication(s): resume meds Current Inpatient Medications Medications (Trade) Dose Ordered Sig/Irineo Route Start Time Stop Time Status Last Admin Dose Admin Ioversol (Optiray 320) 100 ml UD PRN IV 05/05/16 08:00 05/09/16 07:59 Acetaminophen (Tylenol Tab) 650 mg Q4H PRN PO 05/05/16 11:00 06/04/16 10:59 Al Hydrox/Mg Hydrox/Simethicone (Maalox Max Susp) 15 ml Q4H PRN PO 05/05/16 11:00 06/04/16 10:59 Magnesium Hydroxide (Milk Of Magnesia Susp) 30 ml Q6H PRN PO 05/05/16 11:00 06/04/16 10:59 Polyethylene (Miralax Powder Packet) 17 gm DAILY PRN PO 05/05/16 11:00 06/04/16 10:59 Ondansetron HCl (Zofran Inj) 4 mg Q6H PRN IV 05/05/16 11:00 06/04/16 10:59 05/05/16 13:36 4 MG Levothyroxine Sodium (Synthroid Tab) 200 mcg DAILY PO 05/06/16 09:00 06/05/16 08:59 Simvastatin (Zocor Tab) 40 mg QPM PO 05/05/16 21:00 06/04/16 20:59 Tramadol HCl 50 mg 50 mg Q4H PRN PO 05/05/16 11:00 06/04/16 10:59 Pantoprazole Sodium/Syringe (Protonix Inj/ Syringe) 10 ml @ 5 mls/min DAILY@ IV 05/05/16 21:00 06/04/16 20:59 Hydromorphone HCl 0.5 mg 0.5 mg Q4H PRN IV 05/05/16 11:00 05/19/16 10:59 05/05/16 13:36 0.5 MG Sodium Chloride (Nss 1000ml) 1,000 ml @ 100 mls/hr Q10H IV 05/05/16 11:00 06/04/16 10:59 05/05/16 13:31 100 MLS/HR Provider Instructions Activity Restrictions - No exercising or heavy lifting for 24 hours. - Do not drink alcohol the day of the procedure. - Do not drive a car or operate machinery until the day after the procedure. - Do not make any important decisions or sign important papers in 24 hours after the procedure. Following Day: - Return to full activity which may include returning to work/school. Diet Start your diet with liquids and light foods (jello, soup, juice, toast). Then eat your usual diet if not nauseated. Treatment For Common After Affects For mild abdominal pain, bloating, or excessive gas: - Rest - Eat lightly - Lie on right side Follow-Up Information Follow-up with as scheduled Anesthesia Information What You Should Know You have had a procedure that required some medicine to reduce anxiety and discomfort. This treatment is called moderate sedation. After receiving the treatment, you may be sleepy, but you will be able to breathe on your own. The effects of the treatment may last for several hours. Follow these instructions along with Activity/Diet recommendations noted above: * Do NOT do anything where dizziness or clumsiness would be dangerous. * Rest quietly at home today, then you can be up and about tomorrow. * Have a responsible person stay with you the rest of today. * You may have had an I.V. today. If so, you may take the dressing off later today. Recommendations Call your doctor if: * Trouble breathing * Continuous vomiting for more than 24 hours * Temperature above 101 degrees * Severe abdominal pain or bloating * Pain not relieved by pain medicine ordered * There is increased drainage or redness from any incision * A large amount of rectal bleeding greater than 2-3 tablespoons. (If you had a polyp/s removed or have hemorrhoids, a small amount of blood - from the rectum is to be expected.) * You have any unanswered questions or concerns. IN THE EVENT OF A SERIOUS EMERGENCY, GO TO THE NEAREST EMERGENCY ROOM Your discharge instructions were prepared by provider Sae Cardenas. Patient Instructions Signature Page Audelia Galvez Patient (or Guardian) Signature/Date: I have read and understand the instructions given to me by my caregivers. Caregiver/RN/Doctor Signature/Date: The above-named patient and/or guardian has received patient instructions on this date. + Original Patient Signature Page (only) stays with chart. Please make copy for patient.
--- NOTE | 2016-05-05 16:30 | GI REPORT ---
Procedure Date: 05/05/2016 4:16 PM Procedure: Upper GI endoscopy Indications: Nausea with vomiting Medicines: Propofol total dose 120 mg IV, Lidocaine 100 mg IV Complications: No immediate complications. Estimated Blood Loss: Estimated blood loss was minimal. Procedure: Pre-Anesthesia Assessment: - Prior to the procedure, a History and Physical was performed, and patient medications, allergies and sensitivities were reviewed. The patient's tolerance of previous anesthesia was reviewed. - The risks and benefits of the procedure and the sedation options and risks were discussed with the patient. All questions were answered and informed consent was obtained. After obtaining informed consent, the endoscope was passed under direct vision. Throughout the procedure, the patient's blood pressure, pulse, and oxygen saturations were monitored continuously. The scope was introduced through the mouth, and advanced to the second part of duodenum. The upper GI endoscopy was accomplished without difficulty. The patient tolerated the procedure well. Findings: A 3 mm non-bleeding Raquel-Petty tear with stigmata of recent bleeding was found. Estimated blood loss was minimal. Hematin (altered blood/vszcyb-oozxgr-ygtg material) was found in the gastric body. The examined duodenum was normal. Impression: - Raquel-Petty tear. - Hematin (altered blood/pxvndi-twpkzz-rqxo material) in the gastric body. - Normal examined duodenum. - No specimens collected. Recommendation: - [facility] patient to [facility] for [facility] care. - Continue present medications. Sae Cardenas M.D. Sae Cardenas MD 05/05/2016 4:30:21 PM This report has been signed electronically. Note Initiated On: 05/05/2016 4:16 PM I attest to the content of the Intraoperative Record and orders documented therein, exceptions below
--- NOTE | 2016-05-05 16:33 | Anesthesiology Progress Note ---
Anesthesia Post Op Note Date & Time May 05, 2016 at 16:33 Vital Signs Pain Intensity: 0.0 Vital Signs Past 12 Hours Date Time Temp Pulse Resp B/P Pulse Ox O2 Delivery O2 Flow Rate FiO2 05/05/16 15:46 36.9 104 16 135/62 97 Room Air 05/05/16 15:39 Room Air 05/05/16 15:33 37.1 88 16 101/55 92 Room Air 05/05/16 15:13 37.1 88 16 101/55 92 Room Air 05/05/16 12:25 Room Air 05/05/16 11:55 36.8 79 18 175/72 95 Room Air 05/05/16 11:27 88 20 123/58 97 Room Air 05/05/16 11:27 88 20 123/58 97 05/05/16 11:25 97 Room Air 05/05/16 10:12 88 20 126/64 100 Room Air 05/05/16 09:05 88 20 123/58 97 Room Air 05/05/16 09:02 65 05/05/16 07:56 65 17 144/77 97 Room Air 05/05/16 06:45 73 18 149/76 97 Room Air 05/05/16 05:45 82 05/05/16 05:01 172/89 05/05/16 04:55 37.0 93 18 166/102 93 Room Air Notes Mental Status: alert / awake / arousable, participated in evaluation Pt Amnestic to Procedure: Yes Nausea / Vomiting: adequately controlled Pain: adequately controlled Airway Patency, RR, SpO2: stable & adequate BP & HR: stable & adequate Hydration State: stable & adequate Anesthetic Complications: no major complications apparent
--- NOTE | 2016-05-05 16:59 | GASTROINTESTINAL CONSULTATION ---
DATE OF CONSULTATION: 05/05/2016 REASON FOR EVALUATION: Nausea, vomiting, gallstones. HISTORY OF PRESENT ILLNESS: The patient is a 70-year-old female who on March 12 accidentally ingested some hydrogen peroxide. She was vomiting a little bit of blood and was hospitalized. EGD was deferred because she was improving and she was not really enthusiastic about having the procedure done. She was subsequently followed as an outpatient by Dr. Arvizu on April 02 and she was doing well at that point. She presents back to the hospital with recurrent nausea and vomiting. The patient has been off Protonix. She did have an ultrasound which showed gallstones and some thickening of the gallbladder wall. She has also had a CT scan which was negative. EGD has been requested. PAST MEDICAL HISTORY: Remarkable for hypothyroidism, hyperlipidemia, appendectomy, hysterectomy. MEDICATIONS: Thyroid, Protonix, Zocor, Zofran, Ultram. ALLERGIES: POLLEN. FAMILY HISTORY: Heart disease, gallbladder disease, lung disease, hypertension. SOCIAL HISTORY: The patient is a nurse at the hospital. She is . Does not smoke. REVIEW OF SYSTEMS: Negative for 12 systems. PHYSICAL EXAMINATION: GENERAL: The patient appears in no acute distress. VITAL SIGNS: Normal. She is afebrile. ABDOMEN: Some tenderness in the upper abdomen. LABORATORY DATA: Shows a white count of 10.32, hemoglobin 14.4, platelets 208,000. BUN 21, creatinine 0.83, bilirubin is 0.3. ALT, AST and alk phos were all normal. Lipase was normal at 130. IMPRESSION: The patient has abdominal pain, nausea, and vomiting. I plan on scheduling an EGD to rule out peptic ulcer disease. If this is negative, we will proceed with a biliary scan with ejection fraction to see if her gallbladder is not functioning, especially given her stones and family history.
[2016-05-05 17:09] VITALS: BP 145/84; PULSE 98; TEMP 36.8; O2SAT 97
[2016-05-05] MEDS ORDERED: ACETAMINOPHEN IV 1000MG/100ML IV PRN (18:00)
[2016-05-05] MEDS ORDERED: NURSING VERBAL MED ORDER ONE (18:00)
[2016-05-05] MEDS: ONDANSETRON INJ 2 MG/ML 2 ML VIAL IV PRN (18:04)
[2016-05-05] MEDS ORDERED: PROMETHAZINE HCL INJ 25 MG in SODIUM CHLORIDE 0.9% 50ML 50 ML IV ONE (19:30)
[2016-05-05] MEDS ORDERED: PROMETHAZINE HCL INJ 25 MG in SODIUM CHLORIDE 0.9% 50ML 50 ML IV PRN (19:30)
[2016-05-05] MEDS: PANTOprazole INJ 40 MG in SYRINGE 0 ML IV SCH (20:35)
[2016-05-05] MEDS ORDERED: SIMVASTATIN 40 MG TAB PO SCH (21:00)
[2016-05-06 00:50] VITALS: BP 170/79; PULSE 84; TEMP 37.1; O2SAT 93
[2016-05-06] MEDS: HYDROmorphone INJ 0.5 MG/0.5 ML SYR IV PRN (01:07)
[2016-05-06] MEDS: ONDANSETRON INJ 2 MG/ML 2 ML VIAL IV PRN (01:11)
[2016-05-06 01:56] VITALS: BP 123/71; PULSE 80
[2016-05-06 06:19] LABS: HEMATOCRIT 38.5 % (37-47); MEAN CELL VOLUME 86.5 fL (80-100); MEAN CORPUSCULAR HGB CONC 33.5 g/dl (32-36); MEAN PLATELET VOLUME 11.1 fL (7.4-10.4); PLATELET COUNT 195 K/uL (130-400); RED BLOOD COUNT 4.45 M/uL (4.2-5.4); WHITE BLOOD COUNT 10.68 K/uL (4.8-10.8)
[2016-05-06 06:50] VITALS: BP 99/61; PULSE 73; TEMP 36.8; O2SAT 92
[2016-05-06 06:52] LABS: BUN/CREATININE RATIO 23.6 (10-20); CALCIUM 8.7 mg/dl (8.5-10.1); CREATININE 0.73 mg/dl (0.60-1.20); MAGNESIUM 2.4 mg/dl (1.8-2.4); POTASSIUM 4.1 mmol/L (3.5-5.1)
--- NOTE | 2016-05-06 06:54 | EMERGENCY ROOM VISIT NOTE ---
ED Visit Note This is a 70-year-old female who presents emergency department with severe nausea vomiting and epigastric pain. The patient's epigastric pain has continued to increase in the emergency department. She was given multiple doses of Dilaudid as well as nausea medication. Ultrasound is questionable for cholecystitis however she is nontender in the right upper quadrant. The patient was sent for CAT scan of the abdomen pelvis due to the recent history. This was also negative. I did discuss the case with Dr. Cardenas based on the patient's recent history. He asked that patient be admitted to the medicine service. Patient and family were in agreement with the treatment plan.
[2016-05-06] MEDS: SODIUM CHLORIDE 0.9% 1000ML 1,000 ML IV SCH (07:18)
[2016-05-06] MEDS ORDERED: SINCALIDE INJ 1.5 MCG in SODIUM CHLORIDE 0.9% 100ML 100 ML IV SCH (07:45)
[2016-05-06] MEDS ORDERED: LEVOTHYROXINE 200 MCG TAB PO SCH (09:00)
[2016-05-06] MEDS: PANTOprazole INJ 40 MG in SYRINGE 0 ML IV SCH (09:26)
--- NOTE | 2016-05-06 09:42 | DIAGNOSTIC IMAGING REPORT ---
NUCLEAR MEDICINE HEPATOBILIARY STUDY WITH EJECTION FRACTION ANALYSIS CLINICAL HISTORY: nausea and vomiting with gallstones COMPARISON STUDY: Gallbladder ultrasound dated 05/05/2016, CT scan dated 05/05/2016 FINDINGS: The patient was injected with 5.4 mCi of technetium 99m Choletec. Sequential anterior imaging was performed. The gallbladder was first visualized at 10 minute image. Hepatic excretion appeared unremarkable. At 1 hour, the patient was administered 1.5 mcg of sincalide utilizing a 30 minute intravenous infusion. There is normal patches of activity into small bowel. The gallbladder ejection fraction is normal measuring 77%. IMPRESSION: 1. Normal study. No evidence of cystic duct obstruction. Normal gallbladder ejection fraction of 77%. Electronically signed by: Rory Hoang M.D. 05/06/2016 9:41 AM Dictated Date/Time: 05/06/2016 9:40 AM
[2016-05-06] MEDS ORDERED: PANT40TA PO (12:39)
--- NOTE | 2016-05-06 12:48 | Discharge Instructions ---
Discharge Instructions Date of Service May 06, 2016. Admission Reason for Admission: Epigastric Pain, Vomiting Discharge Discharge Diagnosis / Problem: Epigastric pain; N/V; Raquel-Petty tear Discharge Goals Goal(s): Decrease discomfort, Improve function, Learn about illness, Diagnostic testing, Therapeutic intervention, Prevent Disease Progression Activity Recommendations Activity Limitations: resume your previous activity . Instructions / Follow-Up Instructions / Follow-Up New medications: 1. Protonix 40 mg by mouth twice per day You need to continue this medication until your PCP has instructed you to stop Resume all other regular home medications as prescribed to you Avoid NSAIDs (ex: Aspirin, Ibuprofen, Motrin, Advil, Naproxen) and alcohol as these can be very irritating to the stomach Please follow-up with your PCP within 5-7 days Please follow-up/keep all of your subspecialty appointments Current Hospital Diet Patient's current hospital diet: Clear Liquid Diet Discharge Diet Recommended Diet: Regular Diet (Advance diet slowly and as tolerated ) Procedures Procedures Performed: 1. EGD 2. HIDA scan 3. Abdominal/pelvic CT 4. Gallbladder ultrasound Pending Studies Studies pending at discharge: no Laboratory Results Current Inpatient Medications Medications (Trade) Dose Ordered Sig/Irineo Route Start Time Stop Time Status Last Admin Dose Admin Ioversol (Optiray 320) 100 ml UD PRN IV 05/05/16 08:00 05/09/16 07:59 Acetaminophen (Tylenol Tab) 650 mg Q4H PRN PO 05/05/16 11:00 06/04/16 10:59 Al Hydrox/Mg Hydrox/Simethicone (Maalox Max Susp) 15 ml Q4H PRN PO 05/05/16 11:00 06/04/16 10:59 Magnesium Hydroxide (Milk Of Magnesia Susp) 30 ml Q6H PRN PO 05/05/16 11:00 06/04/16 10:59 Polyethylene (Miralax Powder Packet) 17 gm DAILY PRN PO 05/05/16 11:00 06/04/16 10:59 Levothyroxine Sodium (Synthroid Tab) 200 mcg DAILY PO 05/06/16 09:00 06/05/16 08:59 05/06/16 09:26 200 MCG Simvastatin (Zocor Tab) 40 mg QPM PO 05/05/16 21:00 06/04/16 20:59 Tramadol HCl 50 mg 50 mg Q4H PRN PO 05/05/16 11:00 06/04/16 10:59 Pantoprazole Sodium/Syringe (Protonix Inj/ Syringe) 10 ml @ 5 mls/min DAILY@ IV 05/05/16 21:00 06/04/16 20:59 05/06/16 09:26 5 MLS/MIN Hydromorphone HCl 0.5 mg 0.5 mg Q4H PRN IV 05/05/16 11:00 05/19/16 10:59 05/06/16 01:07 0.5 MG Sodium Chloride (Nss 1000ml) 1,000 ml @ 100 mls/hr Q10H IV 05/05/16 11:00 06/04/16 10:59 05/06/16 07:18 100 MLS/HR Ondansetron HCl 4 mg 4 mg Q4H PRN IV 05/05/16 18:00 06/04/16 17:59 05/06/16 01:11 4 MG Acetaminophen 100 ml @ 400 mls/hr Q8H PRN IV 05/05/16 18:00 06/04/16 17:59 05/05/16 18:38 400 MLS/HR Promethazine HCl/ Sodium Chloride (Phenergan Inj/ Nss 50ml) 51 ml @ 204 mls/hr Q6H PRN IV 05/05/16 19:30 06/04/16 19:29 05/06/16 01:49 204 MLS/HR Medical Emergencies . Who to Call and When: Medical Emergencies: If at any time you feel your situation is an emergency, please call 911 immediately. . Non-Emergent Contact Non-Emergency issues call your: Primary Care Provider . . "Provider Documentation" section prepared by Jessica Morejon. VTE Core Measure Inpt VTE Proph given/why not?: Aida Tinoco, SCD's
--- NOTE | 2016-05-06 12:58 | Discharge Summary ---
Discharge Summary Date of Service May 06, 2016. Discharge Summary Admission Date: May 05, 2016 at 10:55 Discharge Date: May 06, 2016 Discharge Disposition: Home Principal Diagnosis: N/V Problems/Secondary Diagnoses: 1. Raquel-Petty tear 2. Hypothyroidism 3. Hyperlipidemia 4. Cholelithiasis Immunizations: Have You Had Influenza Vaccine: N/A History of Tetanus Vaccine?: Unknown History of Pneumococcal: Unknown History of Hepatitis B Vaccine: Yes Hepatitis Immunization Date: Mar 19, 2004 Procedures: ABDOMINAL ULTRASOUND, RIGHT UPPER QUADRANT HISTORY: epigastric and RUQ pain. COMPARISON: Abdomen and pelvis CT 03/12/2016. FINDINGS: Pancreas: The pancreas demonstrates a normal echotexture. Liver: The liver is echogenic consistent with fatty change. Gallbladder: There is 1 cm gallstone. Gallbladder wall is top normal in thickness. CBD: 6 mm. Right kidney: No hydronephrosis. IMPRESSION: 1. Cholelithiasis. Gallbladder wall is top normal in thickness. 2. Hepatic steatosis. Electronically signed by: Vega Vo M.D. 05/05/2016 8:00 AM Dictated Date/Time: 05/05/2016 7:58 AM The status of this report is Signed. Draft = Not yet reviewed or approved by Radiologist. Signed = Reviewed and approved by Radiologist ABDOMEN AND PELVIS CT WITH IV CONTRAST CT DOSE: 707.89 mGy.cm HISTORY: Pt c/o emesis TECHNIQUE: Multiaxial CT images of the abdomen and pelvis were performed following the use of intravenous contrast. COMPARISON STUDY: Abdomen and pelvis CT 03/12/2016. FINDINGS: Stable 4 mm nodule within the left lower lobe on image 11. No pneumoperitoneum. No pneumatosis. Small fat-containing umbilical hernia, unchanged. Hepatic steatosis. The gallbladder, spleen, adrenal glands, and pancreas are unremarkable. The kidneys enhance normally. No hydronephrosis. No retroperitoneal lymphadenopathy. Hysterectomy. A few colonic diverticula. No bowel wall thickening or obstruction. The appendix appears to be surgically absent. Questionable thickening at the ileocecal valve may represent stool. This was not present on the abdomen and pelvis CT performed 2 months earlier. IMPRESSION: 1. No definite bowel wall thickening or obstruction. 2. Questionable thickening at the ileocecal valve which may represent stool. However, if the patient is complaining of right lower quadrant pain considered follow-up CT with oral contrast for further evaluation. 3. A stable 4 mm nodule within the left lower lobe. Electronically signed by: Vega Vo M.D. 05/05/2016 11:08 AM Dictated Date/Time: 05/05/2016 8:24 AM The status of this report is Signed. Draft = Not yet reviewed or approved by Radiologist. Signed = Reviewed and approved by Radiologist. NUCLEAR MEDICINE HEPATOBILIARY STUDY WITH EJECTION FRACTION ANALYSIS CLINICAL HISTORY: nausea and vomiting with gallstones COMPARISON STUDY: Gallbladder ultrasound dated 05/05/2016, CT scan dated 05/05/2016 FINDINGS: The patient was injected with 5.4 mCi of technetium 99m Choletec. Sequential anterior imaging was performed. The gallbladder was first visualized at 10 minute image. Hepatic excretion appeared unremarkable. At 1 hour, the patient was administered 1.5 mcg of sincalide utilizing a 30 minute intravenous infusion. There is normal patches of activity into small bowel. The gallbladder ejection fraction is normal measuring 77%. IMPRESSION: 1. Normal study. No evidence of cystic duct obstruction. Normal gallbladder ejection fraction of 77%. Electronically signed by: Rory Hoang M.D. 05/06/2016 9:41 AM Dictated Date/Time: 05/06/2016 9:40 AM The status of this report is Signed. Draft = Not yet reviewed or approved by Radiologist. Signed = Reviewed and approved by Radiologist. EGD: 1. 3 mm Raquel-Petty tear 2. Hematin in gastric body 3. Duodenum normal Consultations: GI: Dr. Cardenas Medication Reconciliation New Medications: Pantoprazole (Protonix) 40 Mg Tab 40 MG PO BID for 30 Days, #60 TAB Continued Medications: Levothyroxine Sodium (Levothyroxine Sodium) 200 Mcg Tab 200 MCG PO DAILY, TAB Ondansetron Hcl (Zofran) 4 Mg Tab 4 MG SL Q6 PRN for Nausea, TAB Simvastatin (Zocor) 40 Mg Tab 40 MG PO QPM, TAB Tramadol (Ultram) 50 Mg Tab 50 MG PO Q4H PRN for Pain, TAB Discontinued Medications: Pantoprazole (Protonix) 40 Mg Tab 40 MG PO DAILY, #30 TAB Referrals At Discharge Follow up Referrals: Family Practice Referral - Within 1 Week with Lex Pepper MD Discharge Exam Review of Systems: Constitutional: No chills, No fatigue, No fever, No sweats, No weakness Respiratory: No cough, No hemoptysis, No shortness of breath Cardiovascular: No chest pain, No edema, No palpitations Abdomen: + pain, No constipation, No diarrhea, No nausea, No vomiting Musculoskeletal: No calf pain, No joint pain, No muscle pain, No swelling Genitourinary - Female: No dysuria, No hematuria Neurologic: No numbness/tingling, No weakness Psychiatric: No anxiety, No depression symptoms Hematologic / Lymphatic: No abnormal bleeding/bruising Integumentary: No itch, No new/changing skin lesions, No rash Physical Exam: General Appearance: no apparent distress Eyes: normal inspection, PERRL ENT: hearing grossly normal Neck: supple Respiratory/Chest: lungs clear, no respiratory distress, no accessory muscle use Cardiovascular: regular rate, rhythm Abdomen / GI: normal bowel sounds, soft, + tenderness (mild ttp of epigastric region ) Extremities: no calf tenderness, no pedal edema Neurologic/Psychiatric: alert, normal mood/affect, oriented x 3 Skin: normal color, warm/dry, no rash Hospital Course 70 y/o female, with PMHx of hypothyroidism and hyperlipidemia, who presented to the ED because of N/V w/ episodes of hematemesis. N/V w/ episodes of hematemesis, likely secondary to hydrogen peroxide ingestion on 03/12/16- ?ulcer: - Admit to med/surg - NPO--> advanced diet, tolerated well - IV NSS @ 100 ml/hr - IV Protonix--> convert to Protonix 40 mg PO BID at discharge - IV Dilaudid for pain control--> last admission for similar symptoms, Morphine was ineffective - IV Zofran--> Continue PO Zofran PRN at discharge - Follow PRP, CBC, and mag level - RUQ US- Cholelithiasis. Gallbladder wall is top normal in thickness. Hepatic steatosis - Abdomen/pelvic CT- No definite bowel wall thickening/obstruction. Questionable thickening at the ileocecal valve likely represents stool. Stable 4 mm nodule within the left lower lobe. - Consult GI, appreciate recommendations -- EGD on 05/05- 3mm Raquel-Petty tear, Hematin noted in gastric body, Duodenum normal Cholelithiasis noted on US: - HIDA scan- Normal study. No evidence of cystic duct obstruction. Normal gallbladder ejection fraction of 77%. Hypothyroidism: Continue Synthroid 200 mcg PO daily once tolerating oral intake Hyperlipidemia: Continue Zocor 40 mg PO HS once tolerating oral intake GI Prophylaxis: Maalox PRN, IV Zofran PRN, Colace and/or Milk of Mag PRN DVT prophylaxis: Ambulation, CRISTOBAL and SCDs - Hold chemical therapy due to hematemesis Code Status: LEVEL V, DNR Dispo: Discharge to home Total Time Spent: Greater than 30 minutes This includes examination of the patient, discharge planning, medication reconciliation, and communication with other providers. Discharge Instructions Please refer to the electronic Patient Visit Report (Discharge Instructions) for additional information. Follow-Up Please follow-up with your PCP within 5-7 days Please follow-up/keep all of your subspecialty appointments Additional Copies To Lex Pepper MD
[2016-05-06 13:39] VITALS: BP 99/61; PULSE 73; TEMP 36.8; O2SAT 92
== END 2016-05-06 13:57 | disposition home or self-care (01) | DRG 370 ==
LOC: ENRESERVTM → ENRESERVDT → EDBD 04:57 → C.EDA 05:00 → C.3E 10:55
PROVIDERS: ADMIT Internal Medicine; ATTEND Internal Medicine
PROC: 0DJ08ZZ Inspection of Upper Intestinal Tract, Via Natural or Artificial Opening Endoscopic (ICD-10-PCS; principal; 2016-05-05 15:42)
DX: K22.6 Gastro-esophageal laceration-hemorrhage syndrome (principal); K80.20 Calculus of gallbladder without cholecystitis without obstruction; E03.9 Hypothyroidism, unspecified; K92.0 Hematemesis; K76.0 Fatty (change of) liver, not elsewhere classified; E78.5 Hyperlipidemia, unspecified; K57.30 Diverticulosis of large intestine without perforation or abscess without bleeding; Z82.49 Family history of ischemic heart disease and other diseases of the circulatory system; Z66 Do not resuscitate; K42.9 Umbilical hernia without obstruction or gangrene; R91.1 Solitary pulmonary nodule

== ENCOUNTER 2023-10-23 13:12 | Inpatient (IN) ==
--- NOTE | 2023-10-23 14:25 | Emergency Department Note ---
Impression & Plan INMAN (dyspnea on exertion), Chest pain, Fatigue, Anemia ED Provider Note ED Provider Note NAME: YANET JORDAN AGE:77 SEX: Female : 1945 ARRIVES VIA: private vehicle INFORMANT: Patient ED PROVIDER(s): Asia Gupta DO CHIEF COMPLAINT: Shortness of breath with exertion, chest pressure, fatigue HPI: This is a 77-year-old female who presents emergency department after being referred here from her PCPs office due to concern after an evaluation yesterday as an outpatient for shortness of breath with exertion, chest pressure, and fatigue. Patient states this has been going on for several months. She has not noticed any change in the severity but notices that it does happen frequently. She denies any prior similar episodes. Patient was concern for cardiac etiology given family history of young onset CAD. Patient denies any recent fevers, chills, URI symptoms. She denies any recent change in medications or diet. Patient states when the symptoms occur she has to sit down and rest and they will resolve on their own. She states the chest pain feels like a "pressure" or "band" around her chest underneath the breast. She denies any coming nausea or vomiting. She has intermittently had accompanying diaphoresis with these episodes and occasional radiation of this pressure upward into the neck and jaw. No radiation otherwise into the back. Patient states no recent change in bowel or bladder function although states earlier in the summer she did have 2 days of bright red blood per rectum and went to a clear liquid diet for 3 days and it seemed to resolve on its own. She states she has never had a colonoscopy and does not intend to get one. Patient does use low-dose aspirin daily, no other antiplatelet or anticoagulation medications. PAST MEDICAL HISTORY:See Below PAST SURGICAL HISTORY:See Below FAMILY HISTORY:See Below SOCIAL HISTORY:See Below HOME MEDICATIONS:See Below ALLERGIES:See Below VITALS:See Below PHYSICAL EXAMINATION: GENERAL: alert, well appearing, well nourished, no distress, non-toxic EYE EXAM: normal conjunctiva, PERRL and EOM's grossly intact OROPHARYNX: no exudate, no erythema, lips, buccal mucosa, and tongue normal and mucous membranes are moist NECK: supple, no nuchal rigidity, no adenopathy, non-tender LUNGS: Clear to auscultation. Normal chest wall mechanics, no w/r/r HEART: no murmurs, S1 normal and S2 normal ABDOMEN: abdomen soft, non-tender, normo-active bowel sounds, no masses, no rebound or guarding. BACK: Back is symmetrical on inspection and there is no deformity, no midline tenderness, no CVA tenderness. SKIN: no rashes, petechiae, orbruising UPPER EXTREMITIES: upper extremities are grossly normal. FROM, nml pulses b/l. LOWER EXTREMITIES: No pitting edema. FROM, nml pulses b/l. NEURO EXAM: Normal sensorium, cranial nerves II-XII grossly intact, normal speech, no facial droop,nogross weakness of arms, no gross weakness of legs. Gross sensation intact. No ataxia. Vital Signs: reviewed and remarkable Differential Diagnosis: pneumonia, bronchitis, COPD/Asthma exacerbation, pneumothorax, pulmonary embolism, congestive heart failure, acute coronary syndrome, as well as others were considered MEDICAL DECISION MAKING: This is a 77-year-old female referred from her PCPs office due to concern for increased dyspnea with exertion, chest discomfort, fatigue, and diaphoresis that have been evolving over the last several months. Vital signs stable on arrival, labs drawn and sent, IV established, EKG and chest ray performed at bedside interpreted me and patient monitored on telemetry. Patient CBC returned first and I discussed her significant anemia at bedside. We did discuss risk versus benefits of blood transfusion and she was in agreement. A blood consent form was brought to bedside. While performing this, Dr. Person had already noted that she was anemic and was a [facility] patient, he asked for the decision to admit to be placed, we discussed other pending studies at this time. Patient started on gentle IV fluid hydration additionally and was also sent for CT of the abdomen pelvis. Dr. Person added additional labs and will follow them up. Patient verbalized understanding of plan at this time and was in agreement. Consultation(s): 1450: Discussed with Dr. Person, [facility] hospitalist team, for additional evaluation and management. CT a/p pending. Dr. Person already ordered pRBC's. ER Treatment Provided: See below 1455: Blood transfusion consent form signed at bedside. Diagnostics Interpreted By Me: -ECG: Normal sinus at 81, normal axis, normal intervals, no acute ST/T wave changes -Cardiac Monitoring: An order was placed for continuous cardiac monitoring. The monitor shows a rate of 80 with normal sinus rhythm. -Laboratory studies: As stated above and show below. -Imaging studies: X-ray Chest: A single view study of the chest was reviewed and was negative for focal infiltrate, effusion, pulmonary edema, or wide mediastinum. Mild CM noted. Triage Nursing Note Reviewed Prior/Outside Records Reviewed Critical Care: Critical care of 42 min performed to assess and manage high likelihood of life- threatening anemia involving labs and imaging performed with assessment to evaluate dyspnea and chest pain diagnosis with frequent reassessment. This time includes bedside time, treatment discussions with patient/family/consultants, documentation time and excludes procedure time. Past Med/Surg History Problem List (Updated 10/24/23 @ 11:12 by Asia Gupta DO) Anemia (Acute) Pleural effusion, right Acute diverticulitis Liver cirrhosis Symptomatic anemia Hematochezia Iron deficiency anemia Fatigue (Acute) Chest pain (Acute) INMAN (dyspnea on exertion) (Acute) H/O umbilical hernia repair (08/11/22) Open Umbilical Hernia Repair(Not Applicable) - Tenzin Cho MD, FACS Contusion of elbow, right (Acute) Accidental ingestion of substance Tear of medial meniscus of right knee Primary osteoarthritis of left knee Pes anserinus bursitis of right knee Umbilical hernia Medical History (Updated 10/24/23 @ 11:12 by Asia Gupta DO) GERD (gastroesophageal reflux disease) Hyperlipidemia Hypothyroidism Surgical History (Updated 08/27/22 @ 10:04 by Tenzin Cho MD, FACS) History of dilatation and curettage Hx of tubal ligation History of esophagogastroduodenoscopy (EGD) History of surgery eyelid History of anesthesia reaction difficulty waking up (1979), "no problems with anesthesia in recent times" History of hysterectomy History of appendectomy History of oral surgery History of tooth extraction wisdom teeth History of tonsillectomy and adenoidectomy Family History Mother Cancer Stroke Heart disease Hypertension Father Cancer Hypertension Heart disease Social History Smoking Status: Never smoker Second Hand Exposure: Yes (hx growing up); Do You Dip or Chew Tobacco: No; Hx Alcohol Use: Yes Alcohol type: wine Alcohol Intake Frequency Comment: daily Hx Substance Use: No Preferred Language: Thai Communication Ability: Effective Catering Sales Manager Required: No Beliefs That Will Affect Care: None marital status: Current Living Situation: Spouse current occupational status: retired How many Children do You have: 2 Feels Safe at Home: Yes Safety Concerns: Feels Safe At This Time Assistive Devices: Glasses Allergies Allergies Allergy/AdvReac Type Severity Reaction Status Date / Time clavulanic acid Allergy Intermediate Vomiting Verified 08/27/22 11:01 [From Augmentin] pollen extracts Allergy Unknown Verified 08/27/22 11:01 amoxicillin [From Augmentin] AdvReac Mild Gastrointestinal Verified 08/27/22 11:01 Upset Home Meds Home Medications Medication Instructions Recorded Confirmed aspirin 81 mg tablet,delayed 81 mg PO HS 01/28/18 10/23/23 release pantoprazole 40 mg tablet,delayed 40 mg PO HS 01/28/18 10/23/23 release (Protonix) simvastatin 40 mg tablet (Zocor) 40 mg PO HS 01/28/18 10/23/23 mecobalamin (vitamin B12) 500 mcg 500 mcg PO DAILY 07/10/22 10/23/23 chewable tablet vitamin E mixed 1,000 unit capsule 1,000 unit PO HS 07/10/22 10/23/23 levothyroxine 175 mcg tablet 175 mcg PO HS 10/23/23 10/23/23 sertraline 100 mg tablet 100 mg PO HS 10/23/23 10/23/23 Results & Data (ED) Vital Signs Vital Signs - 24 hr 10/23/23 13:18 10/23/23 13:41 10/23/23 13:45 Temperature 36.4 C L Temperature Source Temporal Artery Scan Pulse Rate 87 79 80 Pulse Rate from SpO2 Sensor 80 Pulse Rhythm Regular Pulse Strength Normal Respiratory Rate 17 23 Respiratory Effort / Characteristics Non-Labored Respiratory Depth Normal Respiratory Pattern Regular Blood Pressure 133/63 Blood Pressure Mean 86 Blood Pressure Position Sitting Pulse Oximetry 96 97 Oxygen Delivery Method Room Air Sepsis Recent Fever Within 48 Hours Yes Sepsis New/Unexplained Change in Mental Status No Sepsis Action Taken by Nursing No Action Required 10/23/23 13:57 10/23/23 14:06 10/23/23 14:21 Temperature Temperature Source Pulse Rate 80 78 75 Pulse Rate from SpO2 Sensor 80 79 76 Pulse Rhythm Pulse Strength Respiratory Rate 20 21 16 Respiratory Effort / Characteristics Respiratory Depth Respiratory Pattern Blood Pressure 135/70 135/70 125/59 L Blood Pressure Mean 91 91 81 Blood Pressure Position Pulse Oximetry 97 97 95 Oxygen Delivery Method Sepsis Recent Fever Within 48 Hours Sepsis New/Unexplained Change in Mental Status Sepsis Action Taken by Nursing 10/23/23 14:39 10/23/23 14:48 10/23/23 15:12 Temperature Temperature Source Pulse Rate 80 81 91 H Pulse Rate from SpO2 Sensor 81 81 90 Pulse Rhythm Pulse Strength Respiratory Rate 19 21 20 Respiratory Effort / Characteristics Respiratory Depth Respiratory Pattern Blood Pressure Blood Pressure Mean Blood Pressure Position Pulse Oximetry 97 99 95 Oxygen Delivery Method Sepsis Recent Fever Within 48 Hours Sepsis New/Unexplained Change in Mental Status Sepsis Action Taken by Nursing 10/23/23 15:15 10/23/23 15:21 10/23/23 15:33 Temperature Temperature Source Pulse Rate 79 75 82 Pulse Rate from SpO2 Sensor 79 76 82 Pulse Rhythm Pulse Strength Respiratory Rate 17 16 17 Respiratory Effort / Characteristics Respiratory Depth Respiratory Pattern Blood Pressure 144/70 H 144/70 H Blood Pressure Mean 94 94 Blood Pressure Position Pulse Oximetry 95 96 98 Oxygen Delivery Method Sepsis Recent Fever Within 48 Hours Sepsis New/Unexplained Change in Mental Status Sepsis Action Taken by Nursing Laboratory Data 10/24/23 06:55 10/24/23 06:55 Lab Results 10/23/23 10/23/23 10/23/23 Range/Units 13:47 14:07 14:39 WBC 6.05 (4.8-10.8) K/ul RBC 2.89 L (4.20-5.40) M/uL Hgb 5.5 L* (12.0-16.0) g/dl Hct 20.9 L* (37.0-47.0) % MCV 72.3 L (80.0-100.0) fL MCH 19.0 L (25.0-34.0) pg MCHC 26.3 L (32.0-36.0) g/dL RDW Std Deviation 41.5 (36.4-46.3) fL RDW Coeff of Vandana 15.9 H (11.5-14.5) % Plt Count 166 (130-400) K/uL MPV 12.3 (9.4-12.4) fL Immature Gran % (Auto) 0.3 % Neut % (Auto) 65.8 % Lymph % (Auto) 18.2 % Mccreary % (Auto) 9.8 % Eos % (Auto) 5.1 % Baso % (Auto) 0.8 % Reticulocyte % (Auto) 1.31 (0.50-2.00) % Neut # (Auto) 3.98 (1.40-6.50) K/uL Lymph # (Auto) 1.10 L (1.20-3.40) K/uL Mccreary # (Auto) 0.59 (0.11-0.59) K/uL Eos # (Auto) 0.31 (0.00-0.50) K/uL Baso # (Auto) 0.05 (0.00-0.20) K/uL Reticulocyte # 0.040 (0.020-0.100) 10^6/uL Immature Gran # (Auto) 0.02 (0.01-0.20) K/uL Hypochromasia Present PT 11.3 (9.0-12.0) Seconds INR 1.0 (0.9-1.1) D-Dimer 630 H* (0-500) ug/L FEU Sodium 140 (136-145) mmol/L Potassium 3.9 (3.5-5.1) mmol/L Chloride 110 H (98-107) mmol/L Carbon Dioxide 24 (21-32) mmol/L Anion Gap 6 (3-11) BUN 18 (6-23) mg/dl Creatinine 0.57 L (0.6-1.2) mg/dl Est Cr Clr Drug Dosing 85.4 ml/min Est GFR ( Amer) 103.6 ml/min Est GFR (Non-Af Amer) 89.4 ml/min BUN/Creatinine Ratio 31.6 H (10-20) Glucose 92 (70-99(Fasting)) mg/dl Calcium 8.6 (8.6-10.3) mg/dl Magnesium 2.0 (1.7-2.4) mg/dl Iron 11 L (35-150) mcg/dl TIBC 533 H (250-450) mcg/dl Unsaturated IBC 522 H (155-355) mcg/dl Transferrin % Sat 2 L (15-50) % Ferritin 5.9 L (8-388) ng/ml Total Bilirubin 0.5 (0.2-1.0) mg/dl AST 40 H (13-39) U/L ALT 21 (7-52) U/L Alkaline Phosphatase 81 (34-104) U/L Lactate Dehydrogenase 131 (86-244) U/L Troponin I High Sens 4.1 (0-14) pg/ml B-Natriuretic Peptide 200 H (0-100) pg/ml Total Protein 6.6 (6.0-8.3) gm/dl Albumin 3.9 (3.4-5.0) gm/dl Globulin 2.7 (2.5-4.0) gm/dl Albumin/Globulin Ratio 1.4 (0.9-2) Vitamin B12 (180-914) pg/ml Folate (>5.38) ng/ml TSH 13.837 H (0.300-4.500) uIu/ml Free T4 0.90 (0.61-1.60) ng/dl Adenovirus (PCR) Not Detected (NotDetected) B. pertussis DNA (PCR) Not Detected (NotDetected) B.parapertussis DNA PCR Not Detected (NotDetected) C. pneumoniae DNA (PCR) Not Detected (NotDetected) Coronavirus OC43 (PCR) Not Detected (NotDetected) Coronavirus HKU1 (PCR) Not Detected (NotDetected) Coronavirus 229E (PCR) Not Detected (NotDetected) SARS-CoV-2 (PCR) Not Detected (NotDetected) Coronavirus NL63 (PCR) Not Detected (NotDetected) Human Metapneumovir PCR Not Detected (NotDetected) Influenza Type A (PCR) Not Detected (NotDetected) Influenza Type B (PCR) Not Detected (NotDetected) M. pneumoniae (PCR) Not Detected (NotDetected) Parainfluenza 1 (PCR) Not Detected (NotDetected) Parainfluenza 2 (PCR) Not Detected (NotDetected) Parainfluenza 3 (PCR) Not Detected (NotDetected) Parainfluenza 4 (PCR) Not Detected (NotDetected) RSV (PCR) Not Detected (NotDetected) Entero/Rhino (PCR) Not Detected (NotDetected) Blood Type O Positive Antibody Screen NEGATIVE Crossmatch See Detail 10/23/23 Range/Units 15:25 WBC (4.8-10.8) K/ul RBC (4.20-5.40) M/uL Hgb (12.0-16.0) g/dl Hct (37.0-47.0) % MCV (80.0-100.0) fL MCH (25.0-34.0) pg MCHC (32.0-36.0) g/dL RDW Std Deviation (36.4-46.3) fL RDW Coeff of Vandana (11.5-14.5) % Plt Count (130-400) K/uL MPV (9.4-12.4) fL Immature Gran % (Auto) % Neut % (Auto) % Lymph % (Auto) % Mccreary % (Auto) % Eos % (Auto) % Baso % (Auto) % Reticulocyte % (Auto) (0.50-2.00) % Neut # (Auto) (1.40-6.50) K/uL Lymph # (Auto) (1.20-3.40) K/uL Mccreary # (Auto) (0.11-0.59) K/uL Eos # (Auto) (0.00-0.50) K/uL Baso # (Auto) (0.00-0.20) K/uL Reticulocyte # (0.020-0.100) 10^6/uL Immature Gran # (Auto) (0.01-0.20) K/uL Hypochromasia PT (9.0-12.0) Seconds INR (0.9-1.1) D-Dimer (0-500) ug/L FEU Sodium (136-145) mmol/L Potassium (3.5-5.1) mmol/L Chloride (98-107) mmol/L Carbon Dioxide (21-32) mmol/L Anion Gap (3-11) BUN (6-23) mg/dl Creatinine (0.6-1.2) mg/dl Est Cr Clr Drug Dosing ml/min Est GFR ( Amer) ml/min Est GFR (Non-Af Amer) ml/min BUN/Creatinine Ratio (10-20) Glucose (70-99(Fasting)) mg/dl Calcium (8.6-10.3) mg/dl Magnesium (1.7-2.4) mg/dl Iron (35-150) mcg/dl TIBC (250-450) mcg/dl Unsaturated IBC (155-355) mcg/dl Transferrin % Sat (15-50) % Ferritin (8-388) ng/ml Total Bilirubin (0.2-1.0) mg/dl AST (13-39) U/L ALT (7-52) U/L Alkaline Phosphatase (34-104) U/L Lactate Dehydrogenase (86-244) U/L Troponin I High Sens (0-14) pg/ml B-Natriuretic Peptide (0-100) pg/ml Total Protein (6.0-8.3) gm/dl Albumin (3.4-5.0) gm/dl Globulin (2.5-4.0) gm/dl Albumin/Globulin Ratio (0.9-2) Vitamin B12 615 (180-914) pg/ml Folate 15.55 (>5.38) ng/ml TSH (0.300-4.500) uIu/ml Free T4 (0.61-1.60) ng/dl Adenovirus (PCR) (NotDetected) B. pertussis DNA (PCR) (NotDetected) B.parapertussis DNA PCR (NotDetected) C. pneumoniae DNA (PCR) (NotDetected) Coronavirus OC43 (PCR) (NotDetected) Coronavirus HKU1 (PCR) (NotDetected) Coronavirus 229E (PCR) (NotDetected) SARS-CoV-2 (PCR) (NotDetected) Coronavirus NL63 (PCR) (NotDetected) Human Metapneumovir PCR (NotDetected) Influenza Type A (PCR) (NotDetected) Influenza Type B (PCR) (NotDetected) M. pneumoniae (PCR) (NotDetected) Parainfluenza 1 (PCR) (NotDetected) Parainfluenza 2 (PCR) (NotDetected) Parainfluenza 3 (PCR) (NotDetected) Parainfluenza 4 (PCR) (NotDetected) RSV (PCR) (NotDetected) Entero/Rhino (PCR) (NotDetected) Blood Type Antibody Screen Crossmatch Administered Medications Metronidazole (Flagyl) 500 mg in 100 mls @ 100 mls/hr IV Q8H [facility]; Protocol Stop: 11/03/23 01:29 Last Infusion: 10/24/23 10:28 Dose: Infused Documented By: Admin: 10/24/23 09:22 Dose: 100 mls/hr Documented By: Infusion: 10/24/23 02:01 Dose: Infused Documented By: Admin: 10/24/23 01:01 Dose: 100 mls/hr Documented By: EDWARD Levothyroxine Sodium (Levothyroxine Sodium 175 Mcg Tablet) 175 mcg PO [facility] Stop: 11/22/23 20:59 Last Admin: 10/23/23 19:55 Dose: 175 mcg Documented By: EDWARD Pantoprazole Sodium (Pantoprazole 40 Mg Tab) 40 mg PO [facility] Stop: 11/22/23 20:59 Last Admin: 10/23/23 19:54 Dose: 40 mg Documented By: EDWARD Sertraline HCl (Sertraline Hcl 100 Mg Tablet) 100 mg PO [facility] Stop: 11/22/23 20:59 Last Admin: 10/23/23 19:54 Dose: 100 mg Documented By: EDWARD Simvastatin (Simvastatin 40 Mg Tab) 40 mg PO [facility] Stop: 11/22/23 20:59 Last Admin: 10/23/23 19:54 Dose: 40 mg Documented By: EDWARD Discontinued Medications Pantoprazole Sodium 80 mg/ (Dextrose) 120 mls @ 480 mls/hr IV ONE ONE Stop: 10/23/23 16:14 Last Infusion: 10/23/23 17:41 Dose: Infused Documented By: Admin: 10/23/23 17:21 Dose: 480 mls/hr Documented By: GUS Ceftriaxone Sodium (Rocephin) 2,000 mg in 50 mls @ 100 mls/hr IV NOW STA Stop: 10/23/23 16:29 Last Infusion: 10/23/23 17:22 Dose: Infused Documented By: Admin: 10/23/23 16:41 Dose: 100 mls/hr Documented By: GUS Metronidazole (Flagyl) 500 mg in 100 mls @ 100 mls/hr IV NOW STA; Protocol Stop: 10/23/23 16:59 Last Infusion: 10/23/23 18:40 Dose: Infused Documented By: Admin: 10/23/23 17:39 Dose: 100 mls/hr Documented By: BRJ Ioversol (Optiray 320 100ml) 94 ml IV ONCE ONE Stop: 10/23/23 15:08 Last Admin: 10/23/23 15:07 Dose: 94 ml Documented By: BANDAR Imaging Data Radiologist's Impression: Chest X-Ray 10/23/23 14:01 XR chest 1V portable HISTORY: Dyspnea on exertion. COMPARISON: Chest 03/14/2016. FINDINGS: No pneumothorax. There is a trace right pleural effusion. Left basilar linear densities favor subsegmental atelectasis. The heart is mildly enlarged. No focal lung consolidations to suggest a pneumonia. There is mild central pulmonary vascular congestion without overt edema. No acute fractures. IMPRESSION: 1. Cardiomegaly with mild congestive change. 2. Trace right pleural effusion. ACT 112: Negative or not required by law. Electronically signed by: Vega Vo M.D. 10/23/2023 3:23 PM Abdomen/Pelvis CT 10/23/23 14:[address] WITH IV CONTRAST CT DOSE: 1265.01 mGy.cm HISTORY: gi bleed TECHNIQUE: Multiaxial CT images of the abdomen and pelvis were performed following the use of intravenous contrast. A dose lowering technique was utilized adhering to the principles of ALARA. COMPARISON STUDY: Abdomen and pelvis CT 09/02/2018. FINDINGS: Mild interlobular septal thickening at the lung bases suggestive of mild congestive change/developing pulmonary edema. Stable benign 4 mm nodule within the left lower lobe on image 88. There is a trace right pleural effusion. No pneumoperitoneum. No pneumatosis. No acute fractures. Subtle nodular contour to the liver consistent with mild cirrhosis. No hepatic masses. The main portal vein is patent. The gallbladder, pancreas, and adrenal glands are unremarkable. The spleen enhances normally but is enlarged measuring 14 cm in length. This has increased in size and could be due to the underlying cirrhosis/portal hypertension. A few prominent periportal lymph nodes have also progressed. This could also be due to the cirrhosis but is indeterminate. No retroperitoneal lymphadenopathy. Calcified plaque within the normal caliber abdominal aorta. No pelvic lymphadenopathy. There is a punctate stone within the lower poles of the kidneys. No ureteral stones. No hydronephrosis. No bladder wall thickening. Prior hysterectomy. Colonic diverticulosis. There is an inflamed diverticulum with pericolonic fat stranding along the undersurface of the mid sigmoid colon best seen on image 261. This is consistent with an acute diverticulitis. No perforation or abscess at this time. No evidence for bowel obstruction. Prior appendectomy. IMPRESSION: 1. Acute sigmoid diverticulitis. No perforation or abscess at this time. 2. Mild congestive change/early pulmonary edema with a trace right pleural effusion. 3. Cirrhotic liver with splenomegaly. 4. Bilateral nephrolithiasis. No ureteral stones. No hydronephrosis. 5. Additional findings as described above. ACT 112: Negative or not required by law. Electronically signed by: Vega Vo M.D. 10/23/2023 3:42 PM Discharge Plan Visit Data Chief Complaint: Abnormal Labs/Diagnostic Testing Stated Complaint: ABN LAB RESULTS ED Provider: Asia Gupta Discharge Problem: INMAN (dyspnea on exertion), Chest pain, Fatigue, Anemia Patient Disposition: Admitted As Inpatient Discharge Instructions Interventions: ED Discharge Assessment Last Done: 10/23/23 18:50
[2023-10-23 14:27] LABS: Hematocrit (blood only) 20.9 % (37.0-47.0); Hemoglobin 5.5 g/dl (12.0-16.0); Mean Corpuscular Hgb Conc 26.3 g/dL (32.0-36.0); Mean Corpuscular Volume 72.3 fL (80.0-100.0); Mean Platelet Volume 12.3 fL (9.4-12.4); Platelet Count 166 K/uL (130-400); RDW Coefficient of Variation 15.9 % (11.5-14.5); RDW Standard Deviation 41.5 fL (36.4-46.3); Red Blood Count 2.89 M/uL (4.20-5.40); White Blood Count 6.05 K/ul (4.8-10.8)
[2023-10-23 14:29] LABS: Albumin Globulin Ratio 1.4 (0.9-2); Albumin Level 3.9 gm/dl (3.4-5.0); BUN Creatinine Ratio 31.6 (10-20); Bilirubin,Total 0.5 mg/dl (0.2-1.0); Calcium 8.6 mg/dl (8.6-10.3); Creatinine Clr Calc Pharmacy 85.4 ml/min; Est GFR (African American) 103.6 ml/min; Est GFR (Non-African American) 89.4 ml/min; Globulin 2.7 gm/dl (2.5-4.0); Potassium 3.9 mmol/L (3.5-5.1); Total Protein 6.6 gm/dl (6.0-8.3)
[2023-10-23 14:35] LABS: Troponin I High Sensitivity 4.1 pg/ml (0-14)
[2023-10-23 14:44] LABS: Thyroid Stimulating Hormone 13.837 uIu/ml (0.300-4.500)
[2023-10-23 14:45] LABS: Basophils # (auto) 0.05 K/uL (0.00-0.20); Basophils % (auto) 0.8 %; Eosinophils # (auto) 0.31 K/uL (0.00-0.50); Eosinophils % (auto) 5.1 %; Immature Granulocytes # (auto) 0.02 K/uL (0.01-0.20); Immature Granulocytes % (auto) 0.3 %; Lymphocytes % (auto) 18.2 %; Monocytes # (auto) 0.59 K/uL (0.11-0.59); Monocytes % (auto) 9.8 %; Neutrophils # (auto) 3.98 K/uL (1.40-6.50); Neutrophils % (auto) 65.8 %
[2023-10-23 14:48] LABS: Prothrombin Time 11.3 Seconds (9.0-12.0)
[2023-10-23] MEDS ORDERED: SODIUM CHLORIDE 0.9% 250 ML IV PRN (14:55)
--- NOTE | 2023-10-23 15:06 | History & Physical Report ---
Date of Service October 23, 2023 Assessment & Plan (1) Iron deficiency anemia: Plan: Suspect chronic blood loss rather than acute GI bleed given prolonged progressive symptoms and hemodynamically stable with hemoglobin of 5.5. Fecal occult blood ordered Transfuse 2 units and repeat hemoglobin. Transfuse < 7 overnight or symptomatic and <9 during the day time Suspected lower GI bleed given history of hematochezia and diverticulitis however due to liver cirrhosis will be catious and treat with IV pantoprazole Since she has no confirmed esophageal varices and not seen on CT with suspected slower progressive bleed with not use octreotide, ceftriaxone will be given regardless due to presence of acute diverticulitis (2) Acute diverticulitis: Plan: NPO, ceftriaxone plus metronidazole IV, hold off IV fluids due to mild congestive change on chest x-ray and right pleural effusion Follow-up colonoscopy as an outpatient given weight loss, iron deficiency anemia and post diverticulitis (3) Pleural effusion, right: Plan: With mild congestive changes on CT, ?due to liver cirrhosis TTE to assess for cardiac involvement UA to assess for proteinuria Will avoid IV fluids in addition to blood transfusions (4) Liver cirrhosis: Plan: New, incidental finding on CT INR and platelets within normal limits She denies significant alcohol history although previous to a year ago she was drinking 1 glass of wine. Consult gastroenterology for further workup of this (5) GERD (gastroesophageal reflux disease): Plan: On pantoprazole daily since drinking hydrogen peroxide (6) Hypothyroidism: Plan: TSH 13.8, free T4 within normal limits Reportedly up titrating levothyroxine with her primary care physician therefore defer continuing to up titrate to her PCP (7) Symptomatic anemia: (8) Hematochezia: Plan: None currently but had episode of this 2 months ago Plan VTE prophylaxis - SCDs, no chemical prophylaxis due to suspected GI bleed Diet - n.p.o. Disposition - admit to med/tele Admission and Anticipated Discharge Date Admission Date: October 23, 2023 History of Present Illness Chief Complaint: Shortness of breath Primary Care Provider: Lex Pepper MD Audelia Galvez is a 77 year old female who presents to the ER with shortness of breath and dizziness over the last 2 months getting progressively worse. She denies any chest pain, nausea, vomiting, abdominal pain, change in bowels, melena or heartburn. She has noticed 25lb weight loss since July. 2 months ago after her shortness of breath and dizziness started she had an episode of hematochezia which last < 1 day and she went on a bland diet and it resolved but it has not happened since. She has never had any screening for colon cancer. She takes pantoprazole daily after accidently drinking hydrogen peroxide causing hematemesis around 2016 after she thought it was equivalent to a workout supplement she had ordered from [employer]. Allergies Allergy/AdvReac Type Severity Reaction Status Date / Time clavulanic acid Allergy Intermediate Vomiting Verified 08/27/22 11:01 [From Augmentin] pollen extracts Allergy Unknown Verified 08/27/22 11:01 amoxicillin [From Augmentin] AdvReac Mild Gastrointestinal Verified 08/27/22 11:01 Upset Home Medications Medication Instructions Recorded Confirmed Type aspirin 81 mg tablet,delayed 81 mg PO HS 01/28/18 10/23/23 History release pantoprazole 40 mg tablet,delayed 40 mg PO HS 01/28/18 10/23/23 History release (Protonix) simvastatin 40 mg tablet (Zocor) 40 mg PO HS 01/28/18 10/23/23 History mecobalamin (vitamin B12) 500 mcg 500 mcg PO DAILY 07/10/22 10/23/23 History chewable tablet vitamin E mixed 1,000 unit capsule 1,000 unit PO HS 07/10/22 10/23/23 History levothyroxine 175 mcg tablet 175 mcg PO HS 10/23/23 10/23/23 History sertraline 100 mg tablet 100 mg PO HS 10/23/23 10/23/23 History Past Med/Surg History Problem List (Updated 10/23/23 @ 19:04 by Car Person MD) Pleural effusion, right Acute diverticulitis Liver cirrhosis Symptomatic anemia Hematochezia Iron deficiency anemia Fatigue (Acute) Chest pain (Acute) INMAN (dyspnea on exertion) (Acute) H/O umbilical hernia repair (08/11/22) Open Umbilical Hernia Repair(Not Applicable) - Tenzin Cho MD, FACS Contusion of elbow, right (Acute) Accidental ingestion of substance Tear of medial meniscus of right knee Primary osteoarthritis of left knee Pes anserinus bursitis of right knee Umbilical hernia Medical History (Updated 10/23/23 @ 19:04 by Car Person MD) GERD (gastroesophageal reflux disease) Hyperlipidemia Hypothyroidism Surgical History (Updated 08/27/22 @ 10:04 by Tenzin Cho MD, FACS) History of dilatation and curettage Hx of tubal ligation History of esophagogastroduodenoscopy (EGD) History of surgery eyelid History of anesthesia reaction difficulty waking up (1979), "no problems with anesthesia in recent times" History of hysterectomy History of appendectomy History of oral surgery History of tooth extraction wisdom teeth History of tonsillectomy and adenoidectomy Family History Mother Cancer Stroke Heart disease Hypertension Father Cancer Hypertension Heart disease Social History Smoking Status: Never smoker Second Hand Exposure: Yes (hx growing up); Do You Dip or Chew Tobacco: No; Hx Alcohol Use: Yes Alcohol type: wine Alcohol Intake Frequency Comment: daily Hx Substance Use: No Preferred Language: Greek Communication Ability: Effective Baffle Mounter Required: No Beliefs That Will Affect Care: None marital status: Current Living Situation: Spouse current occupational status: retired How many Children do You have: 2 Feels Safe at Home: Yes Safety Concerns: Feels Safe At This Time Assistive Devices: Glasses Review of Systems Review of Systems: All systems reviewed & are unremarkable except as noted in HPI & below Physical Exam Constitutional: WD/WN, vitals as above Eyes: + anicteric sclerae; normal pupil size ENMT: external ear and nose normal, oropharynx normal Respiratory: normal respiratory effort, lungs clear to auscultation Cardiovascular: RRR, no murmur, no edema Gastrointestinal (Abdomen): Inspection/Auscultation: abdomen normal to inspection; abdomen not distended Percussion/Palpation: + abdomen tender (LLQ on deep palpation) and abdomen soft; no guarding and abdomen not rigid Musculoskeletal: no cyanosis or clubbing, extremities motor strength 5/5 Skin: no rashes, warm and dry Neurologic: moves all extremities and awake; not confused Psychiatric: A+Ox3, euthymic affect Results & Data Results & Data Vital Signs (Past 12 Hours) Vital Signs Temp Pulse Resp BP Pulse Ox O2 Del Method 10/23/23 13:41 79 10/23/23 13:18 36.4 C L 87 17 133/63 96 Room Air Laboratory Results Abnormal lab results 10/23/23 10/23/23 Range/Units 13:47 14:39 RBC 2.89 L (4.20-5.40) M/uL Hgb 5.5 L* (12.0-16.0) g/dl Hct 20.9 L* (37.0-47.0) % MCV 72.3 L (80.0-100.0) fL MCH 19.0 L (25.0-34.0) pg MCHC 26.3 L (32.0-36.0) g/dL RDW Coeff of Vandana 15.9 H (11.5-14.5) % Lymph # (Auto) 1.10 L (1.20-3.40) K/uL Chloride 110 H (98-107) mmol/L Creatinine 0.57 L (0.6-1.2) mg/dl BUN/Creatinine Ratio 31.6 H (10-20) AST 40 H (13-39) U/L B-Natriuretic Peptide 200 H (0-100) pg/ml TSH 13.837 H (0.300-4.500) uIu/ml Crossmatch See Detail Diagnostic Findings XR chest 1V portable HISTORY: Dyspnea on exertion. COMPARISON: Chest 03/14/2016. FINDINGS: No pneumothorax. There is a trace right pleural effusion. Left basilar linear densities favor subsegmental atelectasis. The heart is mildly enlarged. No focal lung consolidations to suggest a pneumonia. There is mild central pulmonary vascular congestion without overt edema. No acute fractures. IMPRESSION: 1. Cardiomegaly with mild congestive change. 2. Trace right pleural effusion. Medications Administered ER Medications Given: None ECG Rate (beats per minute): 81 Rhythm: normal sinus Findings: no acute ischemic change Comparison ECG Date: from (August 04, 2022) Change: no significant change Code Status & VTE Plan Code Status All treatment other than intubation or artificial ventilation VTE Prophylaxis Plan VTE Prophylaxis will be ordered: Yes PG Care Time/CCT Total # of Minutes Spent Total Time Spent with Patient: Total time spent is greater than 50% in coordination of care (as documented) at patient's floor/unit and/or counseling patient: Coding Level of Care Code 23434 INT INP/OBS CARE 3/75MIN Diagnoses Iron deficiency anemia due to chronic blood loss D50.0 Iron deficiency anemia type: chronic blood loss Acute diverticulitis K57.92 Pleural effusion, right J90 Liver cirrhosis K74.60 GERD (gastroesophageal reflux disease) K21.9 Hypothyroidism E03.9 Symptomatic anemia D64.9 Hematochezia K92.1 (1) Iron deficiency anemia Iron deficiency anemia type: chronic blood loss Qualified Code(s): D50.0 - Iron deficiency anemia secondary to blood loss (chronic)
[2023-10-23] MEDS: OPTIRAY 320 100ml IV ONE (15:07)
[2023-10-23 15:16] LABS: Adenovirus PCR Not Detected (NotDetected); Bordetella parapertussis PCR Not Detected (NotDetected); Bordetella pertussis PCR Not Detected (NotDetected); Chlamydia pneumoniae PCR Not Detected (NotDetected); Coronavirus 229E PCR Not Detected (NotDetected); Coronavirus CoV-2 (COVID19)PCR Not Detected (NotDetected); Coronavirus HKU1 PCR Not Detected (NotDetected); Coronavirus NL63 PCR Not Detected (NotDetected); Coronavirus OC43PCR Not Detected (NotDetected); Human Metapneumovirus PCR Not Detected (NotDetected); Influenza A PCR Not Detected (NotDetected); Influenza B PCR Not Detected (NotDetected); Mycoplasma pneumoniae PCR Not Detected (NotDetected); Parainfluenza Virus 1 PCR Not Detected (NotDetected); Parainfluenza Virus 2 PCR Not Detected (NotDetected); Parainfluenza Virus 3 PCR Not Detected (NotDetected); Parainfluenza Virus 4 PCR Not Detected (NotDetected); Respiratory Syncytial VirusPCR Not Detected (NotDetected); Rhinovirus/Enterovirus PCR Not Detected (NotDetected)
[2023-10-23 15:19] LABS: T4 Free Thyroxine 0.9 ng/dl (0.61-1.60)
[2023-10-23 15:21] LABS: Hypochromasia Present; Reticulocyte % 1.31 % (0.50-2.00)
--- NOTE | 2023-10-23 15:24 | XRay Report ---
XR chest 1V portable HISTORY: Dyspnea on exertion. COMPARISON: Chest 03/14/2016. FINDINGS: No pneumothorax. There is a trace right pleural effusion. Left basilar linear densities fav or subsegmental atelectasis. The heart is mildly enlarged. No focal lung consolidations to suggest a pneumonia. There is mild central pulmonary vascular congestion without overt edema. No acute fracture s. IMPRESSION: 1. Cardiomegaly with mild congestive change. 2. Trace right pleural effusion. ACT 112: Negative or not required by law. Electronically signed by: Vega Vo M.D. 10/23/2023 3:23 PM
--- NOTE | 2023-10-23 15:35 | Electrocardiogram Report ---
Test Reason : Blood Pressure : */* mmHG Vent. Rate : 81 BPM Atrial Rate : 81 BPM P-R Int : 156 ms QRS Dur : 76 ms QT Int : 368 ms P-R-T Axes : 67 -3 29 degrees QTcB Int : 427 ms Normal sinus rhythm Poor R wave progression, consider anterior AR vs. lead placement vs. LVH Abnormal ECG When compared with ECG of 04-Aug-2022 11:06, No significant change was found Confirmed by Lex Partida ([id number]) on 10/23/2023 3:34:36 PM Referred By: REFERRED SELF Confirmed By: Lex Partida
--- NOTE | 2023-10-23 15:44 | CT Scan Report ---
ABDOMEN AND PELVIS CT WITH IV CONTRAST CT DOSE: 1265.01 mGy.cm HISTORY: gi bleed TECHNIQUE: Multiaxial CT images of the abdomen and pelvis were performed following the use of intrave nous contrast. A dose lowering technique was utilized adhering to the principles of ALARA. COMPARISON STUDY: Abdomen and pelvis CT 09/02/2018. FINDINGS: Mild interlobular septal thickening at the lung bases suggestive of mild congestive change/ developing pulmonary edema. Stable benign 4 mm nodule within the left lower lobe on image 88. There i s a trace right pleural effusion. No pneumoperitoneum. No pneumatosis. No acute fractures. Subtle nod ular contour to the liver consistent with mild cirrhosis. No hepatic masses. The main portal vein is patent. The gallbladder, pancreas, and adrenal glands are unremarkable. The spleen enhances normally but is enlarged measuring 14 cm in length. This has increased in size and could be due to the underly ing cirrhosis/portal hypertension. A few prominent periportal lymph nodes have also progressed. This could also be due to the cirrhosis but is indeterminate. No retroperitoneal lymphadenopathy. Calcifie d plaque within the normal caliber abdominal aorta. No pelvic lymphadenopathy. There is a punctate st one within the lower poles of the kidneys. No ureteral stones. No hydronephrosis. No bladder wall thi ckening. Prior hysterectomy. Colonic diverticulosis. There is an inflamed diverticulum with pericolon ic fat stranding along the undersurface of the mid sigmoid colon best seen on image 261. This is cons istent with an acute diverticulitis. No perforation or abscess at this time. No evidence for bowel ob struction. Prior appendectomy. IMPRESSION: 1. Acute sigmoid diverticulitis. No perforation or abscess at this time. 2. Mild congestive change/early pulmonary edema with a trace right pleural effusion. 3. Cirrhotic liver with splenomegaly. 4. Bilateral nephrolithiasis. No ureteral stones. No hydronephrosis. 5. Additional findings as described above. ACT 112: Negative or not required by law. Electronically signed by: Vega Vo M.D. 10/23/2023 3:42 PM
[2023-10-23 15:54] LABS: D Dimer 630 ug/L FEU (0-500)
[2023-10-23 15:59] LABS: Ferritin 5.9 ng/ml (8-388)
[2023-10-23 16:27] LABS: Folate (Folic Acid),Ser orPlas 15.55 ng/ml (>5.38)
[2023-10-23] MEDS: cefTRIAXone SODIUM 2,000 MG/50 ML BAG IV STA (16:41)
[2023-10-23 17:08] LABS: Appearance Urine Clear (Clear); Bacteria Urine Automated None Seen (None Seen); Bilirubin Urine Negative (Negative); Blood Urine Negative (Negative); Cast Urine Automated 0-2 /lpf (0-2); Color Urine Yellow; Epithelial Cell Urine Auto 0-2 /hpf (0-2); Glucose Urine UA Negative (Negative); Ketones Urine Negative (Negative); Leukocyte Esterase Urine Trace (Negative); Nitrite Urine Negative (Negative); Protein Urine Negative (Negative); RBC Urine Automated 0-2 /hpf (0-2); Specific Gravity Urine > 1.045 (1.000-1.030); Urobilinogen Urine Negative (Negative); WBC Urine Automated 0-5 /hpf (0-5); pH Urine 6.5 (4.5-7.5)
[2023-10-23] MEDS: PANTOprazole 80 MG in DEXTROSE 5% 100 ML IV ONE (17:21)
--- OUTSIDE RECORDS SUMMARY | 2023-10-23 17:34 | External Medical Summary | Continuity of Care Document ---
Author Name Unknown Organization [place] [address] [place] [address] [phone] Care Team Providers Care Train Crew Member Name Role Phone Lex Pepper Primary Care Physician [phone] Encounter [facility] [id number] Date(s): 06/17/23 - 06/17/23 [facility] [address] [address] [phone] Encounter Diagnosis Thyroid disorder(Discharge Diagnosis) - 06/16/23 Hyperlipidemia(Discharge Diagnosis) - 06/16/23 Mild anxiety(Discharge Diagnosis) - 06/16/23 Body mass index [BMI] 29.0-29.9, adult(Discharge Diagnosis) - 06/17/23 Discharge Disposition: Home or Self Care Attending Physician: MD Pepper Christopher Allergies, Adverse Reactions, Alerts Substance Reaction Severity Status Augmentin Vomiting Active Assessment and Plan Extracted from: Title:FCM - thyroid, LFT, li pids, insomnia/anxiety Author:MD Pepper Christopher Date:06/17/23 1.Thyroid disorder Chronic condition exacerbated/progressive/side effects of treatment Goal:TSH ~1 Data:TSH fromprevious, repeatTSH in8 wks Plan: - increase levothyroxine to 175mcg - TAKE IN AM 2.Hyperlipidemia Chronic condition exacerbated/progressive/side effects of treatment Goal:LDL ~100 Data:lipid panel,CMP Plan: - patient defers adjustment to medication at this time, as do I in favor for repeat LFTs and w/u with US vs. further lab studies based on results 3.Mild anxiety Chronic condition, stable Goal:prevent sx Data:none Plan: - continue sertraline at present dose - reviewed sleep hygiene - defers further medication management for this at present, will monitor Time:Total time spent with this patient on day of evaluation including chart review, ordering, education and coordination of care elements:50 minutes Immunizations Given and Recorded Vaccine Date Status Refusal Reason pneumococcal 23-valent vaccine 01/02/21 Given influenza virus vaccine, inactivated 01/02/21 Give n influenza virus vaccine, inactivated 01/30/20 Give n SARS-CoV-2 (COVID-19) mRNA BNT-162b2 vax 1 04/13/20 Recorded SARS-CoV-2 (COVID-19) mRNA BNT-162b2 vax 2 03/23/20 Recorded tetanus/diphtheria/pertuss, acel (Tdap) 11/14/19 G iven hepatitis B adult vaccine 04/06/01 Recorded hepatitis B adult vaccine 09/29/00 Recorded hepatitis B adult vaccine 09/02/00 Recorded tetanus toxoids-diphtheria, Td (Adult) 05/18/99 Re corded 1Result Comment: 2021-01-02: Historical information-source unspecified 2Result Comment: 2021-01-02: Historical information-source unspecified Medications ALPRAZolam 0.25 mg oral tablet Start: 08/21/22 10:42:00 EDT, 1 tab, PO, qid, Disp# 30 tab, PRN: as needed for anxiety, Pharmacy: [id number] Start Date: 08/21/22 Status: Ordered Aspir 81 Start: 01/04/16 9:21:00, 81 mg =, Daily Start Date: 01/04/16 Status: Ordered levothyroxine 175 mcg (0.175 mg) oral tablet Start: 06/17/23 15:54:00 EDT, 1 tab, PO, Daily, Disp# 90 tab, Pharmacy: [id number] Start Date: 06/17/23 Stop Date: 09/15/23 Status: Ordered pantoprazole 40 mg oral delayed release tablet Start: 06/17/23 15:59:00 EDT, 1 tab, PO, Daily, Disp# 90 tab, Refills: 3, Pharmacy: [id number] Start Date: 06/17/23 Stop Date: 06/11/24 Status: Ordered sertraline 100 mg oral tablet Start: 05/20/23 9:07:00 EDT, 1 tab, PO, Daily, Disp# 90 tab, Refills: 4, Pharmacy: [id number] Start Date: 05/20/23 Stop Date: 08/12/24 Status: Ordered simvastatin 40 mg oral tablet Start: 11/26/22 12:07:00 EDT, 1 tab, PO, Daily, Disp# 90 tab, Refills: 4, Pharmacy: [id number] Start Date: 11/26/22 Status: Ordered Vitamin B12 Start: 06/12/22 15:13:00 EDT Start Date: 06/12/22 Status: Ordered Vitamin D3 Start: 06/12/22 15:13:00 EDT Start Date: 06/12/22 Status: Ordered Mental Status 06/17/23 Barriers to Learning one year None evide nt Mandatory Health Literacy Documentation Yes Health Literacy Communication Barriers N ever Primary Language Yi Problem List Condition Confirmation Course Effective Dates Status H ealth Status Informant Thyroid disorder Confirmed Active Hyperlipidemia Confirmed Active Arthritis Confirmed Active Mild anxiety Confirmed Active Seborrheic keratoses Confirmed Active Diagnosis Diagnosis Type Effective Dates Health Status Clinical Service Informant Thyroid disorder Discharge Diagnosis 06/16/23 Mild anxiety Discharge Diagnosis 06/16/23 Hyperlipidemia Discharge Diagnosis 06/16/23 Body mass index [BMI] 29.0-29.9, adult Discharge Diagnosis 06/17/23 Non-Specified Procedures Procedure Date Related Diagnosis Body Site Status Repair of umbilical hernia 08/11/22 Completed Radionuclide hepatobiliary study 1 05/06/[address] of abdomen and pelvis 2 05/05/16 Completed HIDA scan 3 05/05/16 Completed Upper GI endoscopy 4 05/05/16 Comp leted Upper GI endoscopy 5 05/05/16 Comp leted US scan of upper abdomen 6 05/05/16 Completed Chest x-ray 7 03/14/16 Completed Chest x-ray 8 03/12/16 Completed Chest x-ray 9 03/12/[address] of abdomen and pelvis 10 03/12/[address] of chest 11 03/12/16 Completed Mammogram - localization 12 01/23/15 Completed Mammogram - localization 13 11/02/14 Completed Mammogram - localization 14 11/02/14 Completed Mammogram 15 10/24/14 Completed Mammogram 16 10/24/14 Completed Plain X-ray lumbar spine normal 17 08/30/11 Completed MRI of brain and brain stem 18 10/31/10 Completed Whole body DXA scan 19 10/14/10 Co mpleted Mammogram - localization 20 07/30/05 Completed Mammogram - localization 21 12/25/04 Completed PAP test date 22 12/14/98 Complete d Mammogram 23 04/18/98 Completed Mammogram 24 12/21/96 Completed Biopsy of breast 25 07/29/95 Compl eted 11. normal study. no evidence of cystic duct obstruction. normal gallbladder ejection fraction of 77% 21. no definited bowel wall thickening or obstruction 2. qustionalb thickening at ileocecal valve which may represnt stool. However, if the patient is complina of right lower qudrand pain consider follow up Ct with contrast 3. stable 4mm nodule withink the left lower lobe 3Normal study. No evidence of cystic duct obstruction. Normal gallbladder ejection fraction of 77% 4Mallory renae tear hematin (altered blood/goffee ground like materal in gastric body normal exmained duodenum no specimen collected 5Mallory-Renae tear. Hematin ( altered.blood/xvtmqf-vcxixz-sqjj material) in gastric body. Normal examined duodenum. No specimens collected. 61. cholelithiasis. gallbladder wall is top normal in thickenss 2. hepatic steatosis 71 no active disease in the chest 2. nonosbructing abdominal bowel gas patter 3. no significant change from yestruday 81. no pneumomodiastiuym or pleural effusion identified by radiography. the esophagus is suboptimally assessed by radiography 2. linear left basilar opacity suggestive of atelectasis 9no acute cardio abn 10no pneumoperitoneum or protal venou gas, mild perigastric infiltration along the gastrophepatic ligament which may reflect inflammation rlated to gastric injury. Mild wall thickening of the diastal body of the stomach could reflect gastritis related to toxic congetsion or due to underdistention. Driscussed to Dr fontenot 11no evidenc for esophagela perforation. Please refer to same day abdomen and pel Ct 12scattered fibroglandular densities bening finding follow up in 6 months in right 13probably benign, targeted us the nodular asymmetry in thr tretrglandular fat of the slightly lateral right beast has no sonographic correlated. when comparing to screen [facility] mammograms dating back to 2004, it may have been presnet at that time. However, gien the slight increased conspiciuty, althought it may be related to technical difference a sort interaal follow up right mammogram with possible repeat ultrasound is recommeneded to ensure stability in 6 months. 14probably benign, targeted ultrasound the nodular asymmetry in the retroglandular fat of the slightly lateral right breast has no sonographic correlate. When comparing to screen film mammograms dating back to 2004, it may have been present at that time. recommeded 6 month f/u 15need additional imaging, right breast asymmetry 16incomplete need adttitiaal imaging 171. no acute osseous abnormality is identified in the lumbar spine 2. Significant discogenic disease at L4-L5 18multiple scattered areas of increased white matter signal suggesting nonspecific foci of demyelination 191. negatvie studyof the shoulders 2. findings on plain film appear to be nonpathologic in nature 3. moderative degenerative acitiveiy in the mid to lower cervical spine 20negative findings 21neodensity vs summation right lateral film. spot film recommeneded 22benig cellular changes 23negative assesment yearly mammogram 24right upper outer density is pair of 4 mm smooth bening appearing nodules which are stable. resume annul screening 25brest right 12-1 oclock, fine needle aspiration biopsy: benign breast aspirate. no malignant cells seen Vital Signs Most recent to oldest [Reference Range]: 1 Height 162.5 cm (06/17/23 3:17 PM) Patient Weight 77.8 kg (06/17/23 3:17 PM) Body Mass Index 29.46 kg/m2 (06/17/23 3:17 PM) Heart Rate 78 bpm (06/17/23 3:17 PM) Respiratory Rate 18 br/min (06/17/23 3:17 PM) Blood Pressure 130/64mmHg (06/17/23 3:17 PM) Cuff Pulse Pressure 66 mmHg (06/17/23 3:17 PM) Social History Social History Type Response Smoking Status Never smoked cigaret brian Sex Female FCM Outpt Note * MD Evgeny, Lex: PERFORM Event Display: FCM Outpt Note Authored Date: [id number] Chief Complaint 6 mon f/u, medication refill History of Present Illness Hypothyroidism - working hard to keep on the medication at current dose, history of difficulty with adherence Chronic insomnia - going to bed at 0300, sleeping for 4 hours and then checking the weather and going back to sleep - 1-2 hour naps in the PM - does take the Synthroid at bedtime - tried taking melatonin with some benefit but with weird dreams and so d/c'd - tried cannabinoids OTC with SIGNIFICANT - rare use of alprazolam with significant benefit but avoiding Equilibrium problems with weight loss - equilibrium changes - waxing and waning symptoms - noted when standing up (e.g. out of bed, from car) - mild symptoms (just malaise without overt loss of balance or near-syncope) -notices lessif she is conscientious about standing/positionchanges Reports no REBOLLEDO, chest pain, palpitations s/p root canal Spouse with hearing difficulties Physical Exam Vitals & Measurements HR:78(Monitored) RR:18 BP:130/64 SpO2:97% HT:162.5cm WT:77.800kg(Dosing) WT:77.8kg BMI:29.46 PHQ2 Data(Data Documented on:06/17/2023 15:16) Emotional health assessment NEGATIVE General: _Alert and oriented, No acute distress Cardiovascular: _Normal rate, Regular rhythm, No murmur, No gallop. Respiratory: _Lungs are clear to auscultation, Respirations are non-labored, Breath sounds are equal Psych: Mood-affect congruence. Reports no SI/HI. Speech is of normal pace and content HEENT: _ Normocephalic, TM clear, Nl gross hearing, moist oral mucosa _ Integumentary: _Warm, Dry, [place]. Assessment/Plan 1.Thyroid disorder Chronic condition exacerbated/progressive/side effects of treatment Goal:TSH ~1 Data:TSH fromprevious, repeatTSH in8 wks Plan: - increase levothyroxine to 175mcg - TAKE IN AM 2.Hyperlipidemia Chronic condition exacerbated/progressive/side effects of treatment Goal:LDL ~100 Data:lipid panel,CMP Plan: - patient defers adjustment to medication at this time, as do I in favor for repeat LFTs and w/u with US vs. further lab studies based on results 3.Mild anxiety Chronic condition, stable Goal:prevent sx Data:none Plan: - continue sertraline at present dose - reviewed sleep hygiene - defers further medication management for this at present, will monitor Time:Total time spent with this patient on day of evaluation including chart review, ordering, education and coordination of care elements:50 minutes Problem List/Past Medical History Ongoing Arthritis Hyperlipidemia Mild anxiety Seborrheic keratoses Thyroid disorder Historical Abdominal pain Cardiovascular event risk High cholesterol Sinusitis Procedure/Surgical History Repair of umbilical hernia| Service Date: 08/11/2022Radionuclide hepatobiliary study| ServiceDate: 05/06/2016Upper GI endoscopy| Service Date: 05/05/2016HIDA scan| Service Date: 05/05/2016Upper GI endoscopy| Service Date: 05/05/2016CT of abdomen and pelvis| Service Date: 05/05/2016US scan of upper abdomen| Service Date: 05/05/2016Chest x-ray| Service Date: 03/14/2016CTof chest| Service Date: 03/12/2016CT of abdomen and pelvis| Service Date: 03/12/2016Chest x-ray| Service Date: 03/12/2016Chest x-ray| Service Date: 03/12/2016Mammogram - localization| Service Date: 01/23/2015Mammogram - localization| Service Date: 11/02/2014Mammogram - localization| Service Date: 11/02/2014Mammogram| Service Date: 10/24/2014Mammogram| Service Date: 10/24/2014Plain X-ray lumbar spine normal| Service Date: 08/30/2011MRI of brain and brain stem| Service Date: 10/31/2010Whole body DXA scan| Service Date: 10/14/2010Mammogram - localization| Service Date: 07/30/2005Mammogram - localization| Service Date: 12/25/2004PAP test date| Service Date: 12/14/1998Mammogram| Service Date: 04/18/1998Mammogram| Service Date: 12/21/1996Biopsyof breast| Service Date: 07/29/1995 Medications ALPRAZolam(ALPRAZolam 0.25 mg oral tablet), 0.25 mg= 1 tab, PO, qid, PRN aspirin(Aspir 81), 81 mg, Daily cholecalciferol(Vitamin D3) cyanocobalamin(Vitamin B12) levothyroxine(levothyroxine 175 mcg (0.175 mg) oral tablet), 175 mcg= 1 tab, PO, Daily pantoprazole(pantoprazole 40 mg oral delayed release tablet), 40 mg= 1 tab, PO, Daily, 3 refills sertraline(sertraline 100 mg oral tablet), 100 mg= 1 tab, PO, Daily, 4 refills simvastatin(simvastatin 40 mg oral tablet), 1 tab, PO, Daily Allergies AugmentinVomiting Social History Smoking Status Never smoked cigarettes Alcohol Use:Current Sexual Self described orientation:Heterosexual Substance Abuse - Denies Substance Abuse Tobacco - Denies Tobacco Use Family History Alcohol abuse: Father. Cancer: Father. Heart attack: Mother, Father, Brother and MGM. Hypertension: Mother, Father, Brother and MGM. Respiratory disease: Father. Stroke: Mother and Father. Type II diabetes mellitus: MGM. Health Status Family Member(s) Immunizations Vaccine Date Status pneumococcal 23-valent vaccine 01/02/2021 Given influenza virus vaccine, inactivated 01/02/2021 Given SARS-CoV-2 (COVID-19) mRNA BNT-162b2 vax 04/13/2020 Recorded Comments : 2021-01-02: Historical information-source unspecified SARS-CoV-2 (COVID-19) mRNA BNT-162b2 vax 03/23/2020 Recorded Comments : 2021-01-02: Historical information-source unspecified influenza virus vaccine, inactivated 01/30/2020 Given tetanus/diphtheria/pertuss, acel (Tdap) 11/14/2019 Given hepatitis B adult vaccine 04/06/2001 Recorded hepatitis B adult vaccine 09/29/2000 Recorded hepatitis B adult vaccine 09/02/2000 Recorded tetanus toxoids-diphtheria, Td (Adult) 05/18/1999 Recorded Recommendations Health Maintenance Pending(in the next year) OverDue Medicare Annual Wellness Visit due01/02/22and every 1year Adult Influenza Vaccine due08/15/22and every 1year Due Adult COVID-19 Vaccination due06/17/23Unknown Frequency Adult Social Determinants of Health Screening due06/17/23Unknown Frequency Falls Plan of Care due06/17/23Unknown Frequency Shingles Vaccine due06/17/23One-time only Satisfied(in the past 1 year) Satisfied Body Mass Index on06/17/23.Satisfied by DIEGO Palacios Alexandra Lipid Screening on06/11/23.Satisfied by [employer]system, [employer] Electronic Signature on File Electronically Reviewed/Signed by: Lex Pepper MD Author Signature Dt/Tm:06/17/2023 04:03 PM Department of Family Medicine [facility] Patient Care team information Care Team Personnel Name: MD Pepper Christopher Position: Physician - Family Med Member Role: Primary Care Provider Address: Address: [address] [place] [address] [address] [place] [address] Care Team Related Persons Name: JEFFRY JORDAN Address: home [address] [place] [address] [phone]"
--- OUTSIDE RECORDS SUMMARY | 2023-10-23 17:34 | External Medical Summary | Continuity of Care Document ---
Author Name Unknown Organization [place] [address] [place] [address] [phone] Care Team Providers Care Resource Economist Name Role Phone Lex Pepper Primary Care Physician [phone] [id number] Date[facility]s): 08/06/23 - 08/06/23 [facility] [address] [address] [phone] Encounter Diagnosis Disorder of thyroid, unspecified(Final) - Hyperlipidemia, unspecified(Final) - Anxiety disorder, unspecified(Final) - Discharge Disposition: Home or Self Care Attending Physician: MD Pepper Christopher Referring Physician: MD Pepper Christopher Allergies, Adverse Reactions, Alerts Substance Criticality Severity Reaction Reaction Severity Status Augmentin Vomiting Active Immunizations Given and Recorded Vaccine Date Status [...] 0.25 mg oral tablet Start: 08/21/22 10:42:00 AM EDT, 1 tab, PO, qid, Disp# 30 tab, PRN: as needed for anxiety, Pharmacy: [id number] Start Date: 08/21/22 Status: Ordered Aspir 81 Start: 01/04/16 9:21:00 AM EST, 81 mg =, Daily Start Date: 01/04/16 Status: Ordered levothyroxine 175 mcg (0.175 mg) oral tablet Start: 06/17/23 3:54:00 PM EDT, 1 tab, PO, Daily, Disp# 90 tab, Pharmacy: [id number] Start Date: 06/17/23 Stop Date: 09/15/23 Status: Ordered pantoprazole 40 mg oral delayed release tablet Start: 06/17/23 3:59:00 PM EDT, 1 tab, PO, Daily, Disp# 90 tab, Refills: 3, Pharmacy: [id number] Start Date: 06/17/23 Stop Date: 06/11/24 Status: Ordered sertraline 100 mg oral tablet Start: 05/20/23 9:07:00 AM EDT, 1 tab, PO, Daily, Disp# 90 tab, Refills: 4, Pharmacy: [id number] Start Date: 05/20/23 Stop Date: 08/12/24 Status: Ordered simvastatin 40 mg oral tablet Start: 11/26/22 12:07:00 PM EDT, 1 tab, PO, Daily, Disp# 90 tab, Refills: 4, Pharmacy: [id number] Start Date: 11/26/22 Status: Ordered Vitamin B12 Start: 06/12/22 3:13:00 PM EDT Start Date: 06/12/22 Status: Ordered Vitamin D3 Start: 06/12/22 3:13:00 PM EDT Start Date: 06/12/22 Status: Ordered Problem List Condition Confirmation Course Effective Dates Status H ealth Status Informant Thyroid disorder Confirmed Active Hyperlipidemia Confirmed Active Arthritis Confirmed Active Mild anxiety Confirmed Active Seborrheic keratoses Confirmed Active Procedures Procedure Date Related Diagnosis Body Site [...] no specimen collected 5Mallory-Renae tear. Hematin ( altered.blood/ncnpnt-gyhqiz-swkz material) in gastric body. Normal examined duodenum. [...] no sonographic correlated. when comparing to screen [facility] mammograms dating back to 2004, it may [...] benign breast aspirate. no malignant cells seen Results Laboratory List Name Date Comprehensive Metabolic Panel (COMP META B PANEL) 08/06/23 Thyroid Stimulating Hormone (TSH) 4 Most recent to oldest [Reference Range]: 1 eGFR CKD-EPI [>60 mL/min/1.73 m2] 66 mL/ min/1.73 m2 (08/06/23 12:14 PM) Estimated CrCl 53.41 mL/min (08/06/23 8:37 PM) Anion Gap [5-14 mmol/L] 10 mmol/L (08/06/23 12:14 PM) Alb [3.5-5.2 g/dL] 4.0 g/dL (08/06/23 12:14 PM) Alk Phos [35-115 unit/L] 110 unit/L 1 (08/06/23 12:14 PM) ALT [0-33 unit/L] 45 unit/L *HI* (08/06/23 12:14 PM) AST [0-32 unit/L] 104 unit/L *HI* (08/06/23 12:14 PM) BUN [6-23 mg/dL] 16 mg/dL (08/06/23 12:14 PM) Ca [8.4-10.2 mg/dL] 9.7 mg/dL (08/06/23 12:14 PM) Cl- [98-107 mmol/L] 105 mmol/L (08/06/23 12:14 PM) HCO3 [22-29 mmol/L] 24 mmol/L (08/06/23 12:14 PM) Cret [0.60-1.00 mg/dL] 0.89 mg/dL (08/06/23 12:14 PM) Glu [74-109 mg/dL] 101 mg/dL 2 (08/06/23 12:14 PM) K [3.5-5.1 mmol/L] 4.5 mmol/L (08/06/23 12:14 PM) Na [136-145 mmol/L] 139 mmol/L (08/06/23 12:14 PM) T Bili [0.0-1.2 mg/dL] 0.6 mg/dL (08/06/23 12:14 PM) Prot [6.4-8.3 g/dL] 7.4 g/dL (08/06/23 12:14 PM) TSH [0.30-4.20 uIU/mL] 7.89 uIU/mL *HI* (08/06/23 12:14 PM) 1Result Comment: Low levels of ALKP may indicate a deficiency in zinc, magnesium, or malnutritionbutcan also be an indicator of a rare genetic disease hypophosphatasia (HPP). 2Result Comment: ADA recommendation for FASTING Serum/Plasma Glucose: Normal: 70-100 mg/dL Prediabetes: 100-125 mg/dL Diabetes: 126 mg/dL or higher Social History Social History Type Response Smoking Status Never smoked cigaret brian Sex Female Patient Care team information Care Team Personnel Name: MD Pepper Christopher Position: Physician - Family Med Member Role: Primary Care Provider Address: Address: [address] [address] Care Team Related Persons Name: JEFFRY JORDAN Address: [address] [phone]
--- OUTSIDE RECORDS SUMMARY | 2023-10-23 17:34 | External Medical Summary | Continuity of Care Document ---
Author Name Unknown Organization [facility] [id number] [place] [id number] Care Team Providers Care Pararescue Manager Name Role Phone Lex Pepper Primary Care Physician [phone] [id number] Date(s): 06/11/23 - 06/11/23 [facility] 0 [facility] 207 [facility] [address] [address] [phone] Encounter Diagnosis Hypothyroidism, unspecified(Final) - Frequency of micturition(Final) - Anxiety disorder, unspecified(Final) - Hyperlipidemia, unspecified(Final) - Encounter for general adult medical examination without abnormal findings(Final) - Discharge Disposition: Home or Self Care Attending Physician: MD Pepper Christopher Allergies, Adverse Reactions, Alerts Substance Reaction Severity Status Augmentin Vomiting Active Immunizations [...] tab, PRN: as needed for anxiety, Pharmacy: [id number] Start Date: 08/21/22 Status: Ordered Aspir 81 Start: 01/04/16 9:21:00, 81 mg =, Daily Start Date: 01/04/16 Status: Ordered levothyroxine 150 mcg (0.15 mg) oral tablet Start: 08/21/22 10:28:00 EDT, 1 tab, PO, Daily, Disp# 90 tab, Refills: 3, Pharmacy: [id number] Start Date: 08/21/22 Stop Date: 08/16/23 Status: Ordered pantoprazole 40 mg oral delayed release tablet Start: 07/01/22 11:44:00 EDT, 1 tab, PO, Daily, Disp# 90 tab, Refills: 3, Pharmacy: [id number] Start Date: 07/01/22 Stop Date: 06/26/23 Status: Ordered sertraline 100 mg oral tablet Start: 05/20/23 9:07:00 EDT, 1 tab, PO, Daily, Disp# 90 tab, Refills: 4, Pharmacy: [id number] Start Date: 05/20/23 Stop Date: 08/12/24 Status: Ordered simvastatin 40 mg oral tablet Start: 11/26/22 12:07:00 EDT, 1 tab, PO, Daily, Disp# 90 tab, Refills: 4, Pharmacy: [id number] Start Date: 11/26/22 Status: Ordered Vitamin B12 Start: 06/12/22 15:13:00 EDT Start Date: 06/12/22 Status: Ordered Vitamin D3 Start: 06/12/22 15:13:00 EDT Start Date: 06/12/22 Status: Ordered Problem [...] no specimen collected 5Mallory-Renae tear. Hematin ( altered.blood/xortir-mjvohz-enfj material) in gastric body. Normal examined duodenum. [...] Comprehensive Metabolic Panel (COMP META B PANEL) 06/11/23 Lipid Profile (LIPOPROTEINS) 06/11/23 Thyroid Stimulating Hormone (TSH) 4 Most recent to oldest [Reference Range]: 1 eGFR CKD-EPI [>60 mL/min/1.73 m2] 82 mL/ min/1.73 m2 (06/11/23 1:56 PM) Non-HDL 173 mg/dL (06/11/23 1:56 PM) Estimated CrCl 63.87 mL/min (06/11/23 9:25 PM) Anion Gap [5-14 mmol/L] 11 mmol/L (06/11/23 1:56 PM) Alb [3.5-5.2 g/dL] 4.2 g/dL (06/11/23 1:56 PM) Alk Phos [35-115 unit/L] 123 unit/L 1 *HI* (06/11/23 1:56 PM) ALT [0-33 unit/L] 44 unit/L *HI* (06/11/23 1:56 PM) AST [0-32 unit/L] 81 unit/L *HI* (06/11/23 1:56 PM) BUN [6-23 mg/dL] 12 mg/dL (06/11/23 1:56 PM) Ca [8.4-10.2 mg/dL] 9.7 mg/dL (06/11/23 1:56 PM) Chol/HDL 5 (06/11/23 1:56 PM) Chol [<200 mg/dL] 212 mg/dL *HI* (06/11/23 1:56 PM) Cl- [98-107 mmol/L] 108 mmol/L *HI* (06/11/23 1:56 PM) HCO3 [22-29 mmol/L] 24 mmol/L (06/11/23 1:56 PM) Cret [0.60-1.00 mg/dL] 0.75 mg/dL (06/11/23 1:56 PM) Glu [74-109 mg/dL] 114 mg/dL 2 *HI* (06/11/23 1:56 PM) HDL [>40 mg/dL] 39 mg/dL *LOW* (06/11/23 1:56 PM) K [3.5-5.1 mmol/L] 4.6 mmol/L (06/11/23 1:56 PM) LDL Chol, Calculated [50-130 mg/dL] 151 mg/dL *HI* (06/11/23 1:56 PM) Na [136-145 mmol/L] 143 mmol/L (06/11/23 1:56 PM) T Bili [0.0-1.2 mg/dL] 0.5 mg/dL (06/11/23 1:56 PM) Prot [6.4-8.3 g/dL] 7.5 g/dL (06/11/23 1:56 PM) TG [<150 mg/dL] 109 mg/dL (06/11/23 1:56 PM) TSH [0.30-4.20 uIU/mL] 8.38 uIU/mL *HI* (06/11/23 1:56 PM) 1Result Comment: Low levels of ALKP [...] Role: Primary Care Provider Address: Address: [address] [facility] [address] [place] [address] Care Team Related Persons Name: JEFFRY JORDAN Address: home [address] [place], [place] [address] [phone]
--- OUTSIDE RECORDS SUMMARY | 2023-10-23 17:34 | External Medical Summary | Continuity of Care Document ---
Author Name Unknown Organization [facility] [address] Address [address] [facility] [address] [phone] Care Team Providers Care Calculus Teacher Name Role Phone Lex Pepper Primary Care Physician [phone] [facility] [id number] Date(s): 09/30/23 - 09/30/23 [facility] [address], [place] [phone] Encounter Diagnosis Inflamed seborrheic keratosis(Discharge Diagnosis) - 09/30/23 Family history of skin cancer(Discharge Diagnosis) - 09/30/23 Discharge Disposition: Home or Self Care Attending Physician: NILDA Evangelista Holly C Allergies, Adverse Reactions, Alerts Substance Criticality Severity Reaction Reaction Severity Status Augmentin Vomiting Active Assessment and Plan Extracted from: Title:Dermatology Office Visit Note Author:NILDA Evangelista Holly C Date:09/30/23 1.Inflamed seborrheic forest tosis New Flared Discussed benign nature of lesions. Discussed treatment options including observation, moisturizing. Patient elects cryotherapy. Cryotherapy performed to inflamed seborrheic keratosisfollowing verbal consent.educated on may develop scabs, blisters, and fall off in 1-2 weeks, wound healing,dyspigmentation, infection, scar formation were discussed. Wound care instruction was provided. Patients questions were answered. Liquid nitrogen performed on 3lesions right cheek, 3 on left cheek, 1 on right hand, 2 on right forearm, 1 on left forearm. 2.Family history of skin cancer Chronic Stable Encouraged patient tocall with any concerning lesions, changing lesions, or wounds that won t healin the futureand schedule prompt evaluation in clinic. Recommended patient wear a broad spectrum sunscreen with at least SPF 30 daily. Wear wide brim hats and SPF clothing. No lesions suspicious for cancer. Advised patient to call with any problems, questions, or concerns. States understanding. Patient was seen independently,Dr Zhu for immediate collaboration as needed during this visit. Will follow up in as needed Immunizations Given and Recorded Vaccine Date Status [...] tab, PRN: as needed for anxiety, Pharmacy: [id number] Start Date: 08/21/22 Status: Ordered Aspir 81 Start: 01/04/16 9:21:00 AM EST, 81 mg =, Daily Start Date: 01/04/16 Status: Ordered levothyroxine 175 mcg (0.175 mg) oral tablet Start: 09/14/23 3:43:00 PM EDT, 1 tab, PO, Daily, Disp# 90 tab, Refills: 4, Pharmacy: [id number] Start Date: 09/14/23 Status: Ordered pantoprazole 40 mg oral delayed release tablet Start: 06/17/23 3:59:00 PM EDT, 1 tab, PO, Daily, Disp# 90 tab, Refills: 3, Pharmacy: [id number] Start Date: 06/17/23 Stop Date: 06/11/24 Status: Ordered sertraline 100 mg oral tablet Start: 05/20/23 9:07:00 AM EDT, 1 tab, PO, Daily, Disp# 90 tab, Refills: 4, Pharmacy: [id number] Start Date: 05/20/23 Stop Date: 08/12/24 Status: Ordered simvastatin 40 mg oral tablet Start: 11/26/22 12:07:00 PM EDT, 1 tab, PO, Daily, Disp# 90 tab, Refills: 4, Pharmacy: [id number] Start Date: 11/26/22 Status: Ordered Vitamin B12 Start: 06/12/22 3:13:00 PM EDT Start Date: 06/12/22 Status: Ordered Vitamin D3 Start: 06/12/22 3:13:00 PM EDT Start Date: 06/12/22 Status: Ordered Mental Status 09/30/23 Barriers to Learning one year None evide nt Mandatory Health Literacy Documentation Yes Health Literacy Communication Barriers N ever Primary Language Malaysian Problem List Condition Confirmation Course Effective Dates Status H ealth Status Informant Thyroid disorder Confirmed Active Family history of skin cancer Confirmed Active Hyperlipidemia Confirmed Active Inflamed seborrheic keratosis Confirmed Active Arthritis Confirmed Active Mild anxiety Confirmed Active Seborrheic keratoses Confirmed Active Diagnosis Diagnosis Type Effective Dates Health Status Clinical Service Informant Inflamed seborrheic keratosis Discharge Diagnosis 09/30/23 Non-Specified Family history of skin cancer Discharge Diagnosis 09/30/23 Non-Specified Procedures Procedure Date Related Diagnosis Body [...] no specimen collected 5Mallory-Renae tear. Hematin ( altered.blood/kxsupi-kftmti-mvth material) in gastric body. Normal examined duodenum. [...] benign breast aspirate. no malignant cells seen Social History Social History Type Response Smoking Status Never smoked cigaret brian Sex Female Sex Representation Female (finding) Dermatology Outpatient Note * NILDA Evangelista, Jamila Keyes: PERFORM Event Display: Dermatology Outpt Note Authored Date: Chief Complaint areas to face and arm History of Present Illness 77 YearsoldFemalepatient here for skin check. Patient reports area of concern today: brown spots she wants frozen. Family history skin cancer. not that she is aware of, but maternal grandmother had moles removed and not sure what happened after that. History of Tanning bed use:yesit helps her seasonal affective disorder History of severe, blistering sunburns:yes Sun protection:applies sunscreens, wears hats Denies history of skin cancer. Has had SK's treated with cryotherapy in the past. No other skin areas of concern. Otherwise healthy. Retired RN. Physical Exam General: Well developed, well nourished,whiteFemalein no acute distress. Oriented x3 with appropriate mood and affect. Skin: skin exam performed of face, nose, lips, upper extremities, hands. brown waxy keratotic papules and plaques consistent with seborrheic keratoses, some inflamed. Nolesions suspicious for skin cancer.No unusual features under dermoscopy. Patient declined further exam. Denied any other areas of concerns. Assessment/Plan 1.Inflamed seborrheic keratosis New Flared Discussed benign nature of lesions. Discussed treatment options including observation, moisturizing. Patient elects cryotherapy. Cryotherapy performed to inflamedseborrheic keratosisfollowing verbal consent.educated on maydevelop scabs, blisters, and fall off in 1-2 weeks, wound healing,dyspigmentation, infection, scar formation were discussed. Wound care instruction was provided. Patients questions were answered. Liquid nitrogen performed [id number] right cheek, 3 on left cheek, 1 on right hand, 2 on right forearm, 1 on left forearm. 2.Family history of skin cancer Chronic Stable Encouraged patient tocall with any concerning lesions, changing lesions, or wounds that wont healin the futureand schedule prompt evaluation in clinic. Recommended patient wear a broad spectrum sunscreen with at least SPF 30 daily. Wear wide brim hats and SPF clothing. No lesions suspicious for cancer. Advised patient to call with any problems, questions, or concerns. States understanding. Patient was seenindependently,Dr Zhu for immediate collaboration as needed during this visit. Will follow up inas needed Problem List/Past Medical History Ongoing Arthritis Family history of skin cancer Hyperlipidemia Inflamed seborrheic keratosis Mild anxiety Seborrheic keratoses Thyroid disorder Resolved Abdominal pain Cardiovascular event risk High cholesterol [...] levothyroxine(levothyroxine 175 mcg (0.175 mg) oral tablet), 1 tab, PO, Daily pantoprazole(pantoprazole 40 mg [...] diabetes mellitus: MGM. Health Status Family Member(s) Electronic Signature on File Electronically Reviewed/Signed by: Jamila Evangelista PA-C Author Signature Dt/Tm:09/30/2023 01:10 PM Department of Dermatology Electronically Reviewed/Signed by: Vida Anthony MD Cosigner Signature Dt/Tm: 09/30/2023 01:16 PM Department of Dermatology [facility] Patient Care team information Care Team Personnel Name: MD Pepper Christopher Position: Physician - Family Med Member Role: Primary Care Provider Address: [address] [place] [id number] Care Team Related Persons Name: JEFFRY JORDAN"
[2023-10-23] MEDS: metroNIDAZOLE 500 MG/100 ML BAG IV STA (17:39)
[2023-10-23] MEDS: PANTOprazole 40 MG TAB PO SCH (19:54)
[2023-10-23] MEDS: SERTRALINE HCL 100 MG TABLET PO SCH (19:54)
[2023-10-23] MEDS: SIMVASTATIN 40 MG TAB PO SCH (19:54)
[2023-10-23] MEDS: LEVOTHYROXINE SODIUM 175 MCG TABLET PO SCH (19:55)
[2023-10-24] MEDS: metroNIDAZOLE 500 MG/100 ML BAG IV SCH (01:01)
[2023-10-24 01:22] LABS: Hematocrit (blood only) 25.3 % (37.0-47.0); Hemoglobin 7.5 g/dl (12.0-16.0); Mean Corpuscular Hemoglobin 22.1 pg (25.0-34.0); Mean Corpuscular Hgb Conc 29.6 g/dL (32.0-36.0); Mean Corpuscular Volume 74.6 fL (80.0-100.0); Mean Platelet Volume 11.4 fL (9.4-12.4); Platelet Count 163 K/uL (130-400); RDW Coefficient of Variation 17.2 % (11.5-14.5); RDW Standard Deviation 46.7 fL (36.4-46.3); Red Blood Count 3.39 M/uL (4.20-5.40); White Blood Count 7.06 K/ul (4.8-10.8)
[2023-10-24 07:14] LABS: Basophils # (auto) 0.07 K/uL (0.00-0.20); Basophils % (auto) 1.2 %; Eosinophils # (auto) 0.33 K/uL (0.00-0.50); Eosinophils % (auto) 5.8 %; Hematocrit (blood only) 26.8 % (37.0-47.0); Hemoglobin 7.8 g/dl (12.0-16.0); Immature Granulocytes # (auto) 0.01 K/uL (0.01-0.20); Immature Granulocytes % (auto) 0.2 %; Lymphocytes # (auto) 0.95 K/uL (1.20-3.40); Lymphocytes % (auto) 16.7 %; Mean Corpuscular Hemoglobin 22.2 pg (25.0-34.0); Mean Corpuscular Hgb Conc 29.1 g/dL (32.0-36.0); Mean Corpuscular Volume 76.1 fL (80.0-100.0); Mean Platelet Volume 11.5 fL (9.4-12.4); Monocytes # (auto) 0.57 K/uL (0.11-0.59); Neutrophils # (auto) 3.77 K/uL (1.40-6.50); Neutrophils % (auto) 66.1 %; Platelet Count 155 K/uL (130-400); RDW Coefficient of Variation 17.1 % (11.5-14.5); RDW Standard Deviation 46.5 fL (36.4-46.3); Red Blood Count 3.52 M/uL (4.20-5.40)
[2023-10-24 07:43] LABS: Albumin Globulin Ratio 1.3 (0.9-2); Albumin Level 3.6 gm/dl (3.4-5.0); BUN Creatinine Ratio 21.5 (10-20); Bilirubin,Total 0.7 mg/dl (0.2-1.0); Calcium 8.6 mg/dl (8.6-10.3); Creatinine Clr Calc Pharmacy 75.1 ml/min; Est GFR (African American) 99.3 ml/min; Est GFR (Non-African American) 85.6 ml/min; Globulin 2.7 gm/dl (2.5-4.0); Potassium 4.2 mmol/L (3.5-5.1); Total Protein 6.3 gm/dl (6.0-8.3)
[2023-10-24 07:47] LABS: Microcytosis Present; Polychromasia 1+; Tear Drop Cells 1+
--- NOTE | 2023-10-24 11:44 | Gastrointestinal Consultation ---
Date of Consultation October 24, 2023 Assessment & Plan (1) Anemia: The patient has iron deficiency anemia there is was some bleeding a few months ago but I do not suspect there is any acute or active bleeding right now I am suspecting that she may have a colonic lesion which is masking as diverticulitis she would need a colonoscopy and an upper endoscopy to evaluate she has never had a colonoscopy in the past in view of this questionable diverticulitis would hold for 4 weeks and then plan for a colonoscopy as well as an upper endoscopy would treat with IV iron in the meantime in order to replete her iron stores (2) Acute diverticulitis: I do not suspect she has diverticulitis that she does not have any clinical features of it however there are radiological features of diverticulitis on the CAT scan as read would empirically treat with antibiotics for a short but I s uspect there may be an underlying colonic lesion that is masquerading as diverticulitis and she should undergo colonoscopy within 4 to 6 weeks (3) Liver cirrhosis: She has CT evidence of cirrhosis however clinically she does not have any evidence of cirrhosis she does not drink her INR is normal her platelets are also in the normal range as is her albumin there is no ascites there is no encephalopathy she should undergo an EGD to evaluate if there is any varices or portal hypertensive gastropathy and if not would follow serially she has already had a CT scan and there are no masses (4) Iron deficiency anemia: Will need an upper endoscopy and a colonoscopy and would replete iron stores with IV iron History of Present Illness Reason for Consultation: Anemia Requesting Physician: Jaycob nassar Attending Physician: Suyapa Mike MD History of Present Illness A very pleasant 77-year-old female who has a past medical history significant for reflux hyperlipidemia and hypothyroidism who presented after she was complaining of fatigue and weakness in the ER she was found to be markedly anemic as she was also very iron deficient she denies any specific GI complaints she denies any dysphagia or reflux nausea vomiting or abdominal pain she says she has never had a colonoscopy she states she accidentally swallowed some h ydrogen peroxide a few years ago when she had an upper endoscopy but has not had any dysphagia symptoms since of note she had a CAT scan done which showed there was diverticulitis in the sigmoid colon clinically she does not have any features of diverticulitis she states that a few months ago she had some rectal bleeding as well as had some dark stools but since then she has not had those symptoms on the whole she is quite stable at the current time. Allergies Allergy/AdvReac Type Severity Reaction Status Date / Time clavulanic acid Allergy Intermediate Vomiting Verified 08/27/22 11:01 [From Augmentin] pollen extracts Allergy Unknown Verified 08/27/22 11:01 amoxicillin [From Augmentin] AdvReac Mild Gastrointestinal Verified 08/27/22 11:01 Upset Home Medications Medication Instructions Recorded Confirmed Type aspirin 81 mg tablet,delayed 81 mg PO HS 01/28/18 10/23/23 History release pantoprazole 40 mg tablet,delayed 40 mg PO HS 01/28/18 10/23/23 History release (Protonix) simvastatin 40 mg tablet (Zocor) 40 mg PO HS 01/28/18 10/23/23 History mecobalamin (vitamin B12) 500 mcg 500 mcg PO DAILY 07/10/22 10/23/23 History chewable tablet vitamin E mixed 1,000 unit capsule 1,000 unit PO HS 07/10/22 10/23/23 History levothyroxine 175 mcg tablet 175 mcg PO HS 10/23/23 10/23/23 History sertraline 100 mg tablet 100 mg PO HS 10/23/23 10/23/23 History Patient History Medical History GERD (gastroesophageal reflux disease) Hyperlipidemia Hypothyroidism Surgical History History of dilatation and curettage Hx of tubal ligation History of esophagogastroduodenoscopy (EGD) History of surgery eyelid History of anesthesia reaction difficulty waking up (1979), "no problems with anesthesia in recent times" History of hysterectomy History of appendectomy History of oral surgery History of tooth extraction wisdom teeth History of tonsillectomy and adenoidectomy Family History Mother Cancer Stroke Heart disease Hypertension Father Cancer Hypertension Heart disease Social History Smoking Status: Never smoker Second Hand Exposure: Yes (hx growing up); Do You Dip or Chew Tobacco: No; Hx Alcohol Use: Yes Alcohol type: wine Alcohol Intake Frequency Comment: daily Hx Substance Use: No Preferred Language: Turkmen Communication Ability: Effective Traffic Ii Manager Required: No Beliefs That Will Affect Care: None marital status: Current Living Situation: Spouse current occupational status: retired How many Children do You have: 2 Feels Safe at Home: Yes Safety Concerns: Feels Safe At This Time Assistive Devices: Glasses Review of Systems Review of Systems: A 10 point review of systems was done which was notable for fatigue and weakness Physical Exam Constitutional: WD/WN, vitals as above Respiratory: normal respiratory effort, lungs clear to auscultation Cardiovascular: RRR, no murmur, no edema Gastrointestinal (Abdomen): normal bowel sounds, soft, nontender, no hepatosplenomegaly Results & Data Vital Signs (Past 12 Hours) Vital Signs Temp Pulse Pulse Resp BP Pulse Ox O2 Del Method 10/24/23 08:25 69 10/24/23 08:14 36.9 C 71 19 138/70 95 Room Air 10/24/23 04:34 36.3 C L 69 20 127/70 95 Room Air PG Care Time/CCT Total # of Minutes Spent Total Time Spent with Patient: Total time spent is greater than 50% in coordination of care (as documented) at patient's floor/unit and/or counseling patient: Coding Level of Care Code 22314 INT INP/OBS CARE 2/55MIN History Detailed Exam Expanded Problem Focused Medical Decision Making Moderate Complexity Diagnoses Anemia D64.9 Acute diverticulitis K57.92 Liver cirrhosis K74.60 Iron deficiency anemia due to chronic blood loss D50.0 Iron deficiency anemia type: chronic blood loss (4) Iron deficiency anemia Iron deficiency anemia type: chronic blood loss Qualified Code(s): D50.0 - Iron deficiency anemia secondary to blood loss (chronic)
--- NOTE | 2023-10-24 13:03 | Hospitalist Progress Note ---
<Statement entered by Suyapa Mike MD - 10/24/23 19:49> 77-year-old woman admitted with iron deficiency anemia, likely related to chronic or subacute GI blood loss. Sigmoid diverticulitis based on CT abdomen differential diagnosis is a colonic mass lesion. On my exam she is awake and alert abdomen is soft nontender nondistended with active bowel sounds she has no abdominal pain. Lung exam is notable for fine bilateral crackles she has been experiencing some dyspnea on exertion. no extremity edema and neck veins are hard to see she was transfused 2 units of RBCs this morning with good augmentation of her hemoglobin we will continue treatment for acute diverticulitis with antibiotics for 10-day course, she will follow-up with GI in about a month for EGD and colonoscopy she may have some mild fluid overload based on exam, TTE notable for normal EF however some cardiomegaly and IVC is a little full so she could have some mild volume overload. We could do a trial of oral Lasix and see if her dyspnea improves regarding the cirrhosis, labs including bilirubin and INR are normal. she has no alcohol history, she has a history of obesity and has had significant weight loss recently. We will check hepatitis B and C however she does not seem to have risk factors for these. She can follow-up with GI for further evaluation of cirrhosis likely etiology is MAFLD Date of Service October 24, 2023 Assessment & Plan (1) Iron deficiency anemia: Plan: - Suspect chronic blood loss rather than acute GI bleed given prolonged progressive symptoms and hemodynamically stable with hemoglobin of 5.5. - Transfused 2.5 units and hemoglobin now 7.8 - GI saw patient and recommended iron infusions - GI recommended EGD and Colonoscopy outpatient Suspected lower GI bleed given history of hematochezia and diverticulitis however due to liver cirrhosis will be cautious and treat with IV pantoprazole Since she has no confirmed esophageal varices and not seen on CT with suspected slower progressive bleed with not use octreotide, ceftriaxone will be given regardless due to presence of acute diverticulitis (2) Acute diverticulitis: Plan: - Patient is NPO - Low suspicion for diverticulitis, but GI recommend empirical treatment with ceftriaxone plus metronidazole - Hold off IV fluids due to mild congestive change on chest x-ray and right pleural effusion - Follow-up colonoscopy as an outpatient given weight loss, iron deficiency anemia and post diverticulitis (3) Pleural effusion, right: Plan: - With mild congestive changes on CT, ?due to liver cirrhosis - TTE to assess for cardiac involvement - UA to assess for proteinuria - negative - Will avoid IV fluids in addition to blood transfusions - awaiting TTE results (4) Liver cirrhosis: Plan: - New finding on CT - INR and platelets within normal limits - Consult gastroenterology - they recommend EGD for evaluation of varices or portal hypertension gastropathy. - will order Hep B and C labs (5) GERD (gastroesophageal reflux disease): Plan: - Continue Pantoprazole (6) Hypothyroidism: Plan: - TSH 13.8, free T4 within normal limits - Reportedly up titrating levothyroxine with her primary care physician therefore defer continuing to up titrate to her PCP Plan VTE prophylaxis - SCDs, no chemical prophylaxis due to suspected GI bleed Diet - n.p.o. Admission and Anticipated Discharge Date Admission Date: October 23, 2023 Shalini Win is a pleasant 77 y/o female who presented to the hospital with complaints of dizziness and SOB over the last 2 months. She has noticed a 25 lb weight loss since July. Reports she had one bloody bowel movement in August, but it did not continue after that. No colon cancer screenings. She was hemodynamically stable with a hemoglobin of 5.5. She was transfused 2.5 units and repeat hemoglobin shows H/H of 7.8/26.8. She was seen by GI and they recommend to empirically treat with antibiotics for diverticulitis, although feel there is a stronger suspicion for colonic lesion. Recommendation is for her to follow up with a colonoscopy in 4-6 weeks. Liver cirrhosis was seen on CT scan however does not have evidence of cirrhosis on physical exam. She does not drink ETOH. INR, Platelets and Albumin are normal. No ascites. GI recommends she undergo EGD to evaluate for varices or portal hypertension gastropathy. R Pleural effusion noted on CT with mild congestive changes. TTE ordered to evaluate for cardiac involvement. UA was obtained to evaluate for proteinuria and was negative. Review of Systems 2 Constitutional: + chills (A few times overnight), + fati jennifer, + weakness and + weight loss; no fever Eyes: no problem reported Ear, Nose, Mouth, Throat: no problem reported Respiratory: + dyspnea (Mild at rest, but improved) a nd + dyspnea on exertion Cardiovascular: no chest pain, no chest pain at rest and no syncope Gastrointestinal: + abdominal pain (Intermittent, mild LLQ ); no bloating, no vomiting, no coffee ground emesis, no change in stools, no diarrhea/loose stools and no blood in stools Genitourinary: no problem reported Musculoskeletal: no problem reported Integumentary: no problem reported Neurologic: no problem reported Psychiatric: no problem reported Physical Exam 2 Constitutional: WD/WN, vitals as above Eyes: PERRL; normal pupil size ENMT: Mouth: no lip abnormality and oral mucous membranes not dry Respiratory: normal respiratory effort, lungs clear to auscultation Cardiovascular: RRR, no murmur, no edema Gastrointestinal (Abdomen): normal bowel sounds, soft, nontender, no hepatosplenomegaly Inspection/Auscultation: normal bowel sounds; abdomen not distended Percussion/Palpation: abdomen soft; abdomen nontender, no guarding and abdomen not rigid Musculoskeletal: no cyanosis or clubbing, extremities motor strength 5/5 Skin: no rashes, warm and dry Neurologic: moves all extremities and awake; not confused Psychiatric: Affect: no depressed affect and no flat affect Results & Data Results & Data Vital Signs (Past 12 Hours) Vital Signs Temp Pulse Pulse Resp BP Pulse Ox O2 Del Method 10/24/23 12:03 36.5 C 72 18 176/51 H 96 Room Air 10/24/23 08:25 69 10/24/23 08:14 36.9 C 71 19 138/70 95 Room Air 10/24/23 04:34 36.3 C L 69 20 127/70 95 Room Air Laboratory Results 10/24/23 06:55 10/24/23 06:55 Diagnostic Findings Chest X-Ray 10/23/23 14:01 XR chest 1V portable HISTORY: Dyspnea on exertion. COMPARISON: Chest 03/14/2016. FINDINGS: No pneumothorax. There is a trace right pleural effusion. Left basilar linear densities favor subsegmental atelectasis. The heart is mildly enlarged. No focal lung consolidations to suggest a pneumonia. There is mild central pulmonary vascular congestion without overt edema. No acute fractures. IMPRESSION: 1. Cardiomegaly with mild congestive change. 2. Trace right pleural effusion. ACT 112: Negative or not required by law. Electronically signed by: Vega Vo M.D. 10/23/2023 3:23 PM Abdomen/Pelvis CT 10/23/23 14:[address] WITH IV CONTRAST CT DOSE: 1265.01 mGy.cm HISTORY: gi bleed TECHNIQUE: Multiaxial CT images of the abdomen and pelvis were performed following the use of intravenous contrast. A dose lowering technique was utilized adhering to the principles of ALARA. COMPARISON STUDY: Abdomen and pelvis CT 09/02/2018. FINDINGS: Mild interlobular septal thickening at the lung bases suggestive of mild congestive change/developing pulmonary edema. Stable benign 4 mm nodule within the left lower lobe on image 88. There is a trace right pleural effusion. No pneumoperitoneum. No pneumatosis. No acute fractures. Subtle nodular contour to the liver consistent with mild cirrhosis. No hepatic masses. The main portal vein is patent. The gallbladder, pancreas, and adrenal glands are unremarkable. The spleen enhances normally but is enlarged measuring 14 cm in length. This has increased in size and could be due to the underlying cirrhosis/portal hypertension. A few prominent periportal lymph nodes have also progressed. This could also be due to the cirrhosis but is indeterminate. No retroperitoneal lymphadenopathy. Calcified plaque within the normal caliber abdominal aorta. No pelvic lymphadenopathy. There is a punctate stone within the lower poles of the kidneys. No ureteral stones. No hydronephrosis. No bladder wall thickening. Prior hysterectomy. Colonic diverticulosis. There is an inflamed diverticulum with pericolonic fat stranding along the undersurface of the mid sigmoid colon best seen on image 261. This is consistent with an acute diverticulitis. No perforation or abscess at this time. No evidence for bowel obstruction. Prior appendectomy. IMPRESSION: 1. Acute sigmoid diverticulitis. No perforation or abscess at this time. 2. Mild congestive change/early pulmonary edema with a trace right pleural effusion. 3. Cirrhotic liver with splenomegaly. 4. Bilateral nephrolithiasis. No ureteral stones. No hydronephrosis. 5. Additional findings as described above. ACT 112: Negative or not required by law. Electronically signed by: Vega Vo M.D. 10/23/2023 3:42 PM PG Care Time/CCT Total # of Minutes Spent Total Time Spent with Patient: Total time spent is greater than 50% in coordination of care (as documented) at patient's floor/unit and/or counseling patient: Coding Level of Care Code 23395 SUB INP/OBS CARE 2/35MIN Diagnoses Iron deficiency anemia due to chronic blood loss D50.0 Iron deficiency anemia type: chronic blood loss Acute diverticulitis K57.92 Pleural effusion, right J90 Liver cirrhosis K74.60 GERD (gastroesophageal reflux disease) K21.9 Hypothyroidism E03.9 (1) Iron deficiency anemia Iron deficiency anemia type: chronic blood loss Qualified Code(s): D50.0 - Iron deficiency anemia secondary to blood loss (chronic)
[2023-10-24] MEDS: cefTRIAXone SODIUM 2,000 MG/50 ML BAG IV SCH (15:51)
--- NOTE | 2023-10-24 19:00 | XCELERA ---
[id number]
[2023-10-25 07:53] VITALS: RESP 20; TEMP 98.2; O2SAT 94
--- NOTE | 2023-10-25 10:50 | Discharge Summary ---
Discharge Summary Date of Service October 25, 2023 Principal Dx & Hospital Course #1 = Principal Diagnosis (1) Iron deficiency anemia: Suspect chronic blood loss rather than acute GI bleed given prolonged progressive symptoms and hemodynamically stable with hemoglobin of 5.5. - Transfused 2.5 units and hemoglobin now 7.8. She is not actively bleeding. - GI saw patient and recommended iron infusions. Will have her follow up with PCP. - GI recommended EGD and Colonoscopy outpatient in 4-6 weeks. Will have her follow up with GI outpatient. - Hold ASA for now - follow up with PCP to potentially restart. Suspected lower GI bleed given history of hematochezia and diverticulitis however due to liver cirrhosis will be cautious and treat with IV pantoprazole Since she has no confirmed esophageal varices and not seen on CT with suspected slower progressive bleed she was not given Octreotide. Ceftriaxone given due to presence of acute diverticulitis (2) Acute diverticulitis: Patient tolerated PO low fiber diet well. Denies any n/v/d. No complaints of abdominal pain. - Low suspicion for diverticulitis, but GI recommend empirical treatment with ceftriaxone plus metronidazole - Hold off IV fluids due to mild congestive change on chest x-ray and right pleural effusion - Follow-up colonoscopy as an outpatient given weight loss, iron deficiency anemia and post diverticulitis - Treated inpatient with Ceftriaxone and Flagyl. Will continue outpatient oral regimen with Cipro and Flagyl x 8 more days. Patient reports she cannot tolerate Augmentin (vomiting). Zofran PO sent to the pharmacy for nausea if needed. (3) Pleural effusion, right: With mild congestive changes on CT, TTE showed normal EF, mildly dilated IVC, mild cardiomegaly. - UA to assess for proteinuria - negative - IV fluids were avoided in addition to blood products. - Will trial Lasix 20mg and K 10 meq daily to start outpatient to see if dyspnea improves. (4) Liver cirrhosis: New finding on CT. No hx of alcohol abuse. - INR and platelets within normal limits - Consult gastroenterology - they recommend EGD for evaluation of varices or portal hypertension gastropathy. - will order Hep B and C labs (5) GERD (gastroesophageal reflux disease): - Continue Pantoprazole (6) Hypothyroidism: TSH 13.8, free T4 within normal limits - Reportedly up titrating levothyroxine with her primary care physician therefore defer continuing to up titrate to her PCP Admission HPI Per Admitting Provider Audelia Galvez is a 77 year old female who presented to the ER with shortness of breath and dizziness over the last 2 months getting progressively worse. She denied any chest pain, nausea, vomiting, abdominal pain, change in bowels, melena or heartburn. She has noticed 25lb weight loss since July. 2 months ago after her shortness of breath and dizziness started she had an episode of hematochezia which last < 1 day and she went on a bland diet and it resolved but it has not happened since. She has never had any screening for colon cancer. She takes pantoprazole daily after accidently drinking hydrogen peroxide causing hematemesis around 2016 after she thought it was equivalent to a workout supplement she had ordered from [employer]. During her hospital stay she was found to be anemic with a hemoglobin of 5.5. She was transfused with 2.5 units of blood which did symptomatically help her dyspnea and fatigue, hemoglobin on 10/[address] abd/pelvis showed acute sigmoid diverticulitis w/o perforation or abscess, mild congestive changes/early pulmonary edema with a trace R pleural effusion, cirrhotic liver with splenomegaly, and bilateral nephrolithiasis. She was treated for Diverticulitis with Ceftriaxone and Flagyl, but per GI there is some suspicion of colonic lesion. CT scan showed evidence of cirrhosis. She has no history of alcohol abuse. Her INR, platelets, albumin were normal. AST 40 --> 66, ALT 21 --> 27. Bili normal. No encephalopathy. Hep B and C labs obtained and pending. Recommended by GI that she undergo EGD to evaluate for varices or portal hypertensive gastropathy. TTE was completed and showed normal EF, mildly dilated IVC, mild cardiomegaly - Lasix + K ordered at discharge. TSH was 13.837 on admission and this being followed/treated by her PCP - levothyroxine was continued during hospital stay. Discharge Exam Constitutional WD/WN, vitals as above Eyes PERRL; normal pupil size ENMT Mouth: no lip abnormality and oral mucous membranes not dry Respiratory normal respiratory effort, lungs clear to auscultation Cardiovascular Rate/Rhythm: regular rate and regular rhythm Extremities: no pedal edema and no edema Gastrointestinal (Abdomen) Inspection/Auscultation: normal bowel sounds; abdomen not distended Percussion/Palpation: abdomen soft; abdomen nontender, no guarding and abdomen not rigid Musculoskeletal no cyanosis or clubbing, extremities motor strength 5/5 Skin no rashes, warm and dry Neurologic moves all extremities and awake; not confused Psychiatric Affect: no depressed affect and no flat affect Discharge Plan Discharge Items Patient Disposition: Home - Self-Care Reason For Visit: SYMPTOMATIC ANEMIA Discharge Diagnosis: Anemia, Diverticulitis Activity: Resume your previous activity Non-emergency contact: Primary Care Provider and [employer] Call non-emergency contact if: you have any medication questions, your symptoms worsen and you have a fever Follow-up/Referrals: Skinny Panda DO [Physician] - Lex Pepper MD [Primary Care Provider] - (PLEASE CALL YOUR PRIMARY CARE PROVIDER TO SCHEDULE A HOSPITAL DISCHARGE FOLLOW-UP APPOINTMENT WITHIN 7-10 DAYS) Diet: Regular Addtl Attending Provider Instructions: You are being discharged home on Cipro and Flagyl. I also sent in Zofran to your pharmacy to help with any nausea. Take the antibiotics for 8 more days. If you have any tendon pain, especially in achilles or shoulder, stop Cipro and follow up with PCP. I sent a prescription in for Lasix (Diuretic) and Potassium. Take daily in the morning. Please follow up with PCP for continued management. I stopped your daily aspirin for now. Please follow up with your PCP to see when/if you should resume. IV iron infusions were recommended by GI - follow up with your primary care doctor to determine when you should start these. GI recommended both a colonoscopy and an EGD - please follow up with them. Some of your labs are still pending - we will call you with those results. Pending Studies at Discharge: Yes Stand-Alone Forms: [facility] Medications and DC Order Prescriptions: New ciprofloxacin HCl 500 mg tablet 500 mg PO BID Qty: 16 0RF furosemide [Lasix] 20 mg tablet 20 mg PO DAILY Qty: 30 0RF metronidazole 500 mg tablet 500 mg PO Q8H Qty: 24 0RF ondansetron 4 mg tablet,disintegrating 4 mg PO Q6H PRN (Reason: nausea and vomiting) Qty: 14 0RF potassium chloride 10 mEq tablet extended release 10 meq PO DAILY Qty: 30 0RF Continued mecobalamin (vitamin B12) 500 mcg tablet,chewable 500 mcg PO DAILY vitamin E mixed 1,000 unit capsule 1,000 unit PO HS simvastatin [Zocor] 40 mg Tablet 40 mg PO HS pantoprazole [Protonix] 40 mg Tablet,Delayed Release (Dr/Ec) 40 mg PO HS levothyroxine 175 mcg tablet 175 mcg PO HS sertraline 100 mg tablet 100 mg PO HS Held aspirin 81 mg Tablet,Delayed Release (Dr/Ec) 81 mg PO HS Hold Instructions: Resume on 11/24/23. Discuss with PCP whether to restart Discharge Orders: Discharge Order (Routine); Ordered 10/25/23 Ordered By: Alice Burton Admission Data Admit Date/Time: 10/23/23 15:50 Attending Provider: Suyapa Mike Admit Provider: Car Person Primary Care Provider: Lex Pepper Other Providers: Car Person; Tony Milligan Other Interventions: Discharge Summary Assessment (RN) Last Done: 10/25/23 11:13 Hospital Stay Data Consultations 10/23/23 14:55 ED Decision to Admit Stat 10/23/23 19:18 Consult Gastroenterology Routine Diagnostic Imagining Performed 10/23/23 14:49 CT abd pelvis IV con only Stat Chest X-Ray 10/23/23 14:01 XR chest 1V portable HISTORY: Dyspnea on exertion. COMPARISON: Chest 03/14/2016. FINDINGS: No pneumothorax. There is a trace right pleural effusion. Left basilar linear densities favor subsegmental atelectasis. The heart is mildly enlarged. No focal lung consolidations to suggest a pneumonia. There is mild central pulmonary vascular congestion without overt edema. No acute fractures. IMPRESSION: 1. Cardiomegaly with mild congestive change. 2. Trace right pleural effusion. ACT 112: Negative or not required by law. Electronically signed by: Vega Vo M.D. 10/23/2023 3:23 PM Abdomen/Pelvis CT 10/23/23 14:[address] WITH IV CONTRAST CT DOSE: 1265.01 mGy.cm HISTORY: gi bleed TECHNIQUE: Multiaxial CT images of the abdomen and pelvis were performed following the use of intravenous contrast. A dose lowering technique was utilized adhering to the principles of ALARA. COMPARISON STUDY: Abdomen and pelvis CT 09/02/2018. FINDINGS: Mild interlobular septal thickening at the lung bases suggestive of mild congestive change/developing pulmonary edema. Stable benign 4 mm nodule within the left lower lobe on image 88. There is a trace right pleural effusion. No pneumoperitoneum. No pneumatosis. No acute fractures. Subtle nodular contour to the liver consistent with mild cirrhosis. No hepatic masses. The main portal vein is patent. The gallbladder, pancreas, and adrenal glands are unremarkable. The spleen enhances normally but is enlarged measuring 14 cm in length. This has increased in size and could be due to the underlying cirrhosis/portal hypertension. A few prominent periportal lymph nodes have also progressed. This could also be due to the cirrhosis but is indeterminate. No retroperitoneal lymphadenopathy. Calcified plaque within the normal caliber abdominal aorta. No pelvic lymphadenopathy. There is a punctate stone within the lower poles of the kidneys. No ureteral stones. No hydronephrosis. No bladder wall thickening. Prior hysterectomy. Colonic diverticulosis. There is an inflamed diverticulum with pericolonic fat stranding along the undersurface of the mid sigmoid colon best seen on image 261. This is consistent with an acute diverticulitis. No perforation or abscess at this time. No evidence for bowel obstruction. Prior appendectomy. IMPRESSION: 1. Acute sigmoid diverticulitis. No perforation or abscess at this time. 2. Mild congestive change/early pulmonary edema with a trace right pleural effusion. 3. Cirrhotic liver with splenomegaly. 4. Bilateral nephrolithiasis. No ureteral stones. No hydronephrosis. 5. Additional findings as described above. ACT 112: Negative or not required by law. Electronically signed by: Vega Vo M.D. 10/23/2023 3:42 PM Pending Results Patient Have Any Pending Studies at Discharge: Yes Discharge Instructions Given to Patient (Per Discharging Provider) You are being discharged home on Cipro and Flagyl. I also sent in Zofran to your pharmacy to help with any nausea. Take the antibiotics for 8 more days. If you have any tendon pain, especially in achilles or shoulder, stop Cipro and follow up with PCP. I sent a prescription in for Lasix (Diuretic) and Potassium. Take daily in the morning. Please follow up with PCP for continued management. I stopped your daily aspirin for now. Please follow up with your PCP to see when/if you should resume. IV iron infusions were recommended by GI - follow up with your primary care doctor to determine when you should start these. GI recommended both a colonoscopy and an EGD - please follow up with them. Some of your labs are still pending - we will call you with those results. Total Time Total Time Spent Total Time Spent (In Minutes): 45 C[place] [address] INP/OBS DISCH >30 MIN Patient Type Established History Detailed Medical Decision Making Moderate Complexity Diagnoses Iron deficiency anemia due to chronic blood loss D50.0 Iron deficiency anemia type: chronic blood loss Acute diverticulitis K57.92 Pleural effusion, right J90 Liver cirrhosis K74.60 GERD (gastroesophageal reflux disease) K21.9 Hypothyroidism E03.9
[2023-10-25 11:15] VITALS: BP 176/51; PULSE 72
[2023-10-26 09:46] LABS: Hep B Core Total Antibody Negative (Negative)
[2023-10-26 09:50] LABS: Hep B Surface Ag with confirm Negative (Negative)
[2023-10-26 09:55] LABS: Hep C Ab Rflx HepCQuant RNA Negative (Negative)
[2023-10-26 09:59] LABS: Hepatitis B Surface Ab Quant < 3.00 mIU/mL (>or=10mIU/mL Immune); Hepatitis B Surface Antibody Non-Immune
== END 2023-10-25 11:48 | disposition home or self-care (01) | DRG 811 ==
LOC: ED 13:12 → SUATTDRO 15:50 → 2W 15:50